=== PATIENT | male | born 1945 | race American Indian/Alaskan Native ===

== ENCOUNTER 2017-06-24 10:22 | Emergency (ER) | payer MEDICARE ==
--- NOTE | 2017-06-24 11:55 | XRay Report ---
RIGHT ANKLE, 3 views: History: right ankle pain. Bone mineralization is normal. There has been previous internal fixation of the distal fibula and medial malleolus. No acute fracture lines are detected. Moderate to severe posttraumatic degenerative changes are identified at the ankle joint. The visualized hind foot is intact. The soft tissues are unremarkable. IMPRESSION: Posttraumatic degenerative changes as described. No acute process is noted.
[2017-06-24] MEDS ORDERED: ASPIRIN PO ONE (14:42)
[2017-06-24 16:00] LABS: Hemoglobin 10.5 gm/dl (11.8-15.2); Mean Corpuscular HGB Conc 34 % (32-34); Mean Corpuscular Hemoglobin 41 pg (28-32); Platelet Count 256 K/mm3 (140-440); Red Blood Count 2.55 M/mm3 (3.65-5.03)
[2017-06-24 16:02] LABS: Lymphocytes % (Auto) 26.9 % (13.4-35.0); Mean Corpuscular Volume 122 fl (84-94); Monocytes % (Auto) 7.9 % (0.0-7.3); Red Cell Distribution Width 22.9 % (13.2-15.2)
--- NOTE | 2017-06-24 16:02 | XRay Report ---
Portable chest: SOB. The cardiac contour does appear enlarged. There is no significant vascular congestion and the lungs are clear of any infiltrate. No recent study for comparison. Impression: Mild cardiomegaly. No definite acute finding.
[2017-06-24 16:03] LABS: Basophils # (Auto) 0.1 K/mm3 (0.0-0.1); Basophils % (Auto) 1.4 % (0.0-1.8); Eosinophils % (Auto) 0.7 % (0.0-4.3); Lymphocytes # (Auto) 1.7 K/mm3 (1.2-5.4); Monocytes # (Auto) 0.5 K/mm3 (0.0-0.8)
[2017-06-24 16:22] LABS: Alanine Aminotransferase 91 units/L (7-56); Albumin 3.5 g/dL (3.9-5); BUN/Creatinine Ratio 22; Blood Urea Nitrogen 28 mg/dL (9-20); Calcium 8.8 mg/dL (8.4-10.2); Hemolysis Index 7; Lipase 47 units/L (13-60)
[2017-06-24] MEDS ORDERED: PEPCID IV ONE (17:32)
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
[2017-06-24] MEDS ORDERED: CATAPRES PO ONE (18:00)
[2017-06-24] MEDS ORDERED: CATAPRES ONE (18:02)
[2017-06-24 18:40] VITALS: BP 168/105
== END 2017-06-24 18:54 | disposition home or self-care (01) ==
LOC: ED 10:22
DX: K27.9 Peptic ulcer, site unspecified, unspecified as acute or chronic, without hemorrhage or perforation (principal); M25.571 Pain in right ankle and joints of right foot; G89.29 Other chronic pain; I10 Essential (primary) hypertension
CPT/HCPCS: 36415; 71045; 80053; 83690; 84484; 85025; 93005; 93010; 96374

== ENCOUNTER 2017-12-28 10:42 | Emergency (ER) | payer MEDICARE ==
[2017-12-28 10:54] VITALS: BP 150/87
[2017-12-28] MEDS ORDERED: NORCO 5/325 PO ONE (12:16)
[2017-12-28] MEDS ORDERED: TORADOL IM ONE (12:17)
--- NOTE | 2017-12-28 12:18 | Emergency Department Report ---
Blank Doc - Documentation Documentation: 72-year-old male presents to the hospital with lower back pain and pain to bilateral hips 1 week progressively worsening. No follow-up reported. 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 Taking gabapentin and taking Tylenol intermittently without relief. Denies numbness, weakness, urinary incontinence, fever, or dysuria. UA pending X-ray lumbar sacral spine [place] and Toradol for pain Mid-level to follow-up
[2017-12-28 12:53] LABS: Bilirubin,Urine NEG (Negative); Blood,Urine NEG (Negative); Color,Urine Yellow (Yellow); Protein,Urine <15 mg/dL mg/dL (Negative)
[2017-12-28 12:57] LABS: WBC,Urine < 1.0 /HPF (0.0-6.0)
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
--- NOTE | 2017-12-28 13:52 | XRay Report ---
Lumbar spine 3 views: History: Back pain. Findings This there is anterior wedging noted of second lumbar vertebral body superior endplate. Degenerative changes of the adjacent endplates. There is narrowing noted off L4-L5 with slight anterolisthesis of L4 over L5. Severe narrowing of lumbosacral interspace with degenerative changes. Calcified abdominal aorta without aneurysm. Impression: Compression fracture of L2 is noted and may be recent or old. Degenerative lumbar spine.
--- NOTE | 2017-12-28 16:04 | Cat Scan Report ---
FINAL REPORT EXAM: CT LUMBAR SPINE WO CON HISTORY: low back pain with abnormal xray TECHNIQUE: Spiral CT scanning of the lumbar spine, with axial images and multiplanar reformations. PRIORS: None. FINDINGS: Diffuse osteopenia. Erosive changes and endplate destruction noted L1-2 level, with wedge-shaped appearance and mild-moderate loss of height in the anterosuperior L2 vertebral body and more scalloped appearance of L1 inferior endplate. Possible intervertebral cartilaginous or Schmorl's node endplate changes in L1 superior and L3 inferior endplates. Multilevel degenerative disc disease and spondylosis, with vacuum disc changes in L4-S1 levels. Very mild anterolisthesis uncovering broad-based disc bulge in L4-5 level, with moderate-marked central spinal canal narrowing. Variable neural foraminal narrowing, most pronounced in the bilateral L4-S1 levels. No acute compression deformity or gross malalignment of lumbar vertebral bodies. No acute fracture identified. No acute, osseous central spinal canal encroachment. Paraspinal soft tissues grossly unremarkable. Diffuse aortoiliac calcification without aneurysmal dilatation. IMPRESSION: 1. Erosive changes and endplate destruction in the L1-2 level may be metabolic or represent infectious or inflammatory process, including spondylodiscitis and osteomyelitis. However, neoplastic or metastatic disease cannot be excluded. Exact etiology uncertain, and clinical correlation along with followup suggested. 2. Diffuse degenerative spondylosis, including central spinal and neural foraminal stenosis in lower lumbar spine.
[2017-12-28 17:33] LABS: Hematocrit 33.8 % (35.5-45.6); Hemoglobin 11.3 gm/dl (11.8-15.2); Mean Corpuscular HGB Conc 33 % (32-34); Mean Corpuscular Hemoglobin 35 pg (28-32); Mean Corpuscular Volume 105 fl (84-94); Platelet Count 358 K/mm3 (140-440); Red Blood Count 3.23 M/mm3 (3.65-5.03)
[2017-12-28 17:36] LABS: BUN/Creatinine Ratio 24; Blood Urea Nitrogen 19 mg/dL (9-20); Calcium 9.7 mg/dL (8.4-10.2); Hemolysis Index 26
[2017-12-28 17:51] LABS: Red Cell Distribution Width 28.2 % (13.2-15.2)
[2017-12-28 18:40] LABS: Erythrocyte Sedimentation Rate 1 mm/Hr (0-20)
[2017-12-28 18:41] LABS: Band Neutrophils # (Manual) 0.5 K/mm3; Basophils % (Manual) 0 % (0.0-1.8); Eosinophils % (Manual) 0 % (0.0-4.3); Total Cells Counted 100
[2017-12-28 18:42] LABS: Anisocytosis 1+; Hypochromasia 1+; Macrocytosis 1+; Ovalocytes 1+; Platelet Estimate Consistent w Auto; Target Cells Few
== END 2017-12-28 19:35 | disposition home or self-care (01) ==
LOC: ED 10:42
DX: S39.012A Strain of muscle, fascia and tendon of lower back, initial encounter (principal); I10 Essential (primary) hypertension; Z87.891 Personal history of nicotine dependence; X58.XXXA Exposure to other specified factors, initial encounter; Y93.89 Activity, other specified; Y92.89 Other specified places as the place of occurrence of the external cause; Y99.8 Other external cause status
CPT/HCPCS: 36415; 72100; 72131; 80048; 81001; 85007; 85025; 85652; 96372; 99284; J1885

== ENCOUNTER 2018-07-28 05:49 | Day surgery (SDC) | payer MEDICARE ==
[~2018-07-28 05:49] MED LIST: LACTATED RINGERS 1,000 ML IV SCH
[2018-07-28] MEDS ORDERED: ANCEF/STERILE WATER 2 GM/20 ML 2 GM/20 ML SYRINGE IV SCH (06:00)
[2018-07-28] MEDS ORDERED: XYLOCAINE MPF 2% ONE (07:20)
[2018-07-28] MEDS ORDERED: VERSED ONE (07:20)
[2018-07-28] MEDS ORDERED: NEO SYNEPHRINE/NS Syringe(OR USE) IV ONE (07:20)
[2018-07-28] MEDS ORDERED: KETALAR ONE (07:21)
--- NOTE | 2018-07-28 07:43 | Anesthesia Consultation ---
Anesthesia Consult and Med Hx Date of service: 07/28/18 - Airway Anesthetic Teeth Evaluation: Edentulous ROM Head & Neck: Adequate Mental/Hyoid Distance: Adequate Mallampati Class: Class II Intubation Access Assessment: Probably Good - Pulmonary Exam CTA: Yes - Cardiac Exam Cardiac Exam: RRR - Pre-Operative Health Status ASA Pre-Surgery Classification: ASA4 Proposed Anesthetic Plan: MAC - Pulmonary Hx Smoking: Yes Hx Asthma: No COPD: Yes (ordered albuteral neb x 1) Home Oxygen Therapy: No - Cardiovascular System Hx Hypertension: Yes (took medications last night; CHF with EF 15-20%) Hx Heart Attack/AMI: No Hx Pacemaker: No Hx Internal Defibrillator: No - Central Nervous System Hx Seizures: No - Gastrointestinal Hx Gastroesophageal Reflux Disease: No - Endocrine Hx Renal Disease: No Hx Liver Disease: No - Hematic Hx Sickle Cell Disease: No - Other Systems Hx Alcohol Use: No Hx Obesity: No - Additional Comments Anesthesia Medical History Comments: No GAC, No FHAC
--- NOTE | 2018-07-28 07:43 | XRay Report ---
ROUTINE CHEST, TWO VIEWS: HISTORY: Preoperative evaluation. Compared to 07/08/18. There is mild to moderate cardiomegaly. Pulmonary vessels are within normal limits. Trace right pleural effusion is suspected. No evidence for pneumonia or pneumothorax. The bony structures are mildly demineralized but intact. IMPRESSION: Cardiomegaly and trace right pleural effusion.
[2018-07-28] MEDS ORDERED: PROVENTIL IH NR (08:15)
[2018-07-28] MEDS ORDERED: HYDROGEN PEROXIDE ONE (08:31)
[2018-07-28] MEDS ORDERED: MARCAINE 0.5% INFILTRATI ONE ×2 (08:31→09:30)
[2018-07-28] MEDS ORDERED: XYLOCAINE 1%/ EPI 1:100,000 INFILTRATI ONE ×2 (08:31→09:30)
[2018-07-28] MEDS ORDERED: MARCAINE-EPI 0.5%-1:200,000 INFILTRATI ONE (08:31)
[2018-07-28] MEDS ORDERED: SUBLIMAZE IV PRN (08:48)
[2018-07-28] MEDS ORDERED: ceFAZolin 2 GM in NACL 0.9% 100 ML IV ONE (09:30)
[2018-07-28] MEDS ORDERED: WATER FOR IRRIG STERILE IR ONE (09:30)
[2018-07-28] MEDS ORDERED: LOPRESSOR IV ONE (10:03)
[2018-07-28] MEDS ORDERED: BREVIBLOC IV ONE (10:04)
--- NOTE | 2018-07-28 10:14 | Discharge Summary ---
Short Stay Discharge Plan Activity: other (october d/c when stable. keep dressings dry and in place. home health d/c packing Fri am. irrigate wd with 50% h202/NS ronni qd. pack with mesalt) Diet: regular Wound: per wound nurse instructions Additional Instructions: aleve I po q 6-8 hrs prn for breakthrough pain Follow up with: AMERICO LATHAM MD [Staff Physician] - 08/02/18
[2018-07-28] MEDS ORDERED: Vasostrict ONE (10:16)
--- NOTE | 2018-07-28 10:34 | Operative Report ---
PREOPERATIVE DIAGNOSIS: Right chest wall abscess. POSTOPERATIVE DIAGNOSIS: Right chest wall abscess. Pending final pathology. PROCEDURE: Excision and drainage of chest wall abscess. SURGEON: Aman Arizmendi MD ANESTHESIA: 0.5% Marcaine with IV sedation. COMPLICATIONS: No complications. PROCEDURE IN DETAIL: The patient was taken to the operating room, prepped and draped in usual sterile fashion. The erythematous draining nodule was clearly seen on the right chest wall area. An 11 blade was used to incise skin and subcutaneous tissue. A fair amount of purulence as well as what appears to be sebum was noted. Aerobic and anaerobic cultures were taken. Portions of the tissue were sent fresh to pathology also for cultures as well as permanent pathology. The cavity was then copiously irrigated and dried. Checked for hemostasis and noted to be dry. The cavity was then packed with quarter inch iodoform gauze. Fluff and pressure dressings applied. The patient tolerated the procedure well and left the OR in stable condition. JOB# [id number] JAHAIRA/GONZALEZ
[2018-07-28 11:19] VITALS: BP 136/98
--- NOTE | 2018-07-28 15:08 | Post Anesthesia Evaluation ---
- Post Anesthesia Evaluation Patient Participated: Yes Airway Patent: Yes Stable Respiratory Function: Yes Nausea/Vomiting: No Temp > 96.8F: Yes Pain Manageable: Yes Adequeate Hydration: Yes Anesthesia Complications: No
--- NOTE | 2018-07-28 15:08 | Anesthesia Day of Surgery ---
Anesthesia Day of Surgery - Day of Surgery Patient Examined: Yes Patient H&P Reviewed: Yes Patient is NPO: Yes
== END 2018-07-28 12:05 | disposition home or self-care (01) ==
LOC: OR 05:49
PROVIDERS: ATTEND Surgery
DX: G72.49 Other inflammatory and immune myopathies, not elsewhere classified (principal); L02.213 Cutaneous abscess of chest wall; I11.0 Hypertensive heart disease with heart failure; I50.20 Unspecified systolic (congestive) heart failure; I25.10 Atherosclerotic heart disease of native coronary artery without angina pectoris; E78.5 Hyperlipidemia, unspecified; D64.9 Anemia, unspecified; J44.9 Chronic obstructive pulmonary disease, unspecified; K21.9 Gastro-esophageal reflux disease without esophagitis; Z87.891 Personal history of nicotine dependence; Z79.899 Other long term (current) drug therapy
CPT/HCPCS: 10060; 36415; 71046; 84132; 87075; 87076; 87116; 87186; 88305; 88341; 88342; J0690; J2250; J2370; J7120; 88304

== ENCOUNTER 2018-10-02 11:32 | Inpatient (IN) | payer MEDICARE ==
[2018-10-02] MEDS ORDERED: CARDIZEM IV ONE (12:25)
[2018-10-02] MEDS ORDERED: CARDIZEM ONE (12:28)
[2018-10-02 12:38] LABS: Hematocrit 42.2 % (35.5-45.6); Hemoglobin 13.8 gm/dl (11.8-15.2); Mean Corpuscular HGB Conc 33 % (32-34); Platelet Count 196 K/mm3 (140-440); Red Blood Count 3.31 M/mm3 (3.65-5.03)
[2018-10-02] MEDS ORDERED: NACL 0.9% 1000 ML 1,000 ML ONE ×2 (12:38→18:54)
[2018-10-02] MEDS ORDERED: NACL 0.9% 1000 ML 1,000 ML IV ONE ×2 (12:42→13:10)
[2018-10-02 12:44] LABS: INR 1.78 (0.87-1.13); Mean Corpuscular Volume 128 fl (84-94); Red Cell Distribution Width 29.8 % (13.2-15.2)
--- NOTE | 2018-10-02 12:48 | Cat Scan Report ---
PROCEDURE: CT HEAD/BRAIN WO CON TECHNIQUE: CT of the head was performed without intravenous contrast. HISTORY: AMS A flutter COMPARISONS: None FINDINGS: The ventricles are normal in position and shape. The ventricles are nondilated. No intracranial hemorrhage, mass, mass effect or evidence of acute ischemic infarct. The basilar cisterns are patent. The paranasal sinuses are clear. The mastoid air cells are clear. The orbits are intact. The calvarium is intact. No extracranial soft tissue swelling. IMPRESSION: No acute intracranial abnormality. This document is electronically signed by Margaret Cardona., October 02 2018 12:46:56 PM ET
[2018-10-02 12:57] LABS: Albumin 4.2 g/dL (3.9-5); Bilirubin,Direct 1.6 mg/dL (0-0.2)
[2018-10-02 13:05] LABS: Free T4 (Free Thyroxine) 1.35 ng/dL (0.76-1.46)
--- NOTE | 2018-10-02 13:07 | Emergency Department Report ---
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 Urine Bilirubin Urine Urobilinogen Ur Leukocyte Esterase Urine WBC (Auto) Urine RBC (Auto) U Epithel Cells (Auto) Urine Bacteria (Auto) Hyaline Casts Urine Mucus Urine Opiates Screen Urine Methadone Screen Ur Barbiturates Screen Ur Phencyclidine Scrn Ur Amphetamines Screen U Benzodiazepines Scrn Urine Cocaine Screen U Marijuana (THC) Screen Drugs of Abuse Note 10/02/18 10/02/18 10/02/18 12:06 12:30 13:13 WBC RBC Hgb Hct MCV MCH MCHC RDW Plt Count Add Manual Diff Total Counted Seg Neuts % (Manual) Band Neutrophils % Lymphocytes % (Manual) Reactive Lymphs % (Man) Monocytes % (Manual) Eosinophils % (Manual) Basophils % (Manual) Metamyelocytes % Myelocytes % Promyelocytes % Blast Cells % Nucleated RBC % Seg Neutrophils # Man Band Neutrophils # Lymphocytes # (Manual) Abs React Lymphs (Man) Monocytes # (Manual) Eosinophils # (Manual) Basophils # (Manual) Metamyelocytes # Myelocytes # Promyelocytes # Blast Cells # WBC Morphology Hypersegmented Neuts Hyposegmented Neuts Hypogranular Neuts Smudge Cells Toxic Granulation Toxic Vacuolation Dohle Bodies Pelger-Huet Anomaly Amina Rods Platelet Estimate Clumped Platelets Plt Clumps, EDTA Large Platelets Giant Platelets Platelet Satelliting Plt Morphology Comment RBC Morphology Dimorphic RBCs Polychromasia Hypochromasia Poikilocytosis Anisocytosis Microcytosis Macrocytosis Spherocytes Pappenheimer Bodies Sickle Cells Target Cells Tear Drop Cells Ovalocytes Helmet Cells Villed[place]our Bodies Kerrick Rings Jose Cells Bite Cells Crenated Cell Elliptocytes Acanthocytes (Spur) Rouleaux Hemoglobin C Crystals Schistocytes Malaria parasites Gordo Bodies Hem Pathologist Commnt PT INR APTT Sodium 140 Potassium 5.1 H Chloride 104.4 Carbon Dioxide 18 L Anion Gap 23 BUN 42 H Creatinine 1.5 Estimated GFR 55 BUN/Creatinine Ratio 28 Glucose 106 H POC Glucose 71 Calcium 8.9 Magnesium Total Bilirubin Direct Bilirubin Indirect Bilirubin AST ALT Alkaline Phosphatase Ammonia Total Creatine Kinase CK-MB (CK-2) CK-MB (CK-2) Rel Index Troponin T 0.031 H NT-Pro-B Natriuret Pep Total Protein Albumin Albumin/Globulin Ratio Triglycerides 52 Cholesterol 111 LDL Cholesterol Direct 77 HDL Cholesterol 40 Cholesterol/HDL Ratio 2.77 TSH 6.960 H Free T4 1.35 Urine Color Urine Turbidity Urine pH Ur Specific [place] Urine Protein Urine Glucose (UA) Urine Ketones Urine Blood Urine Nitrite Urine Bilirubin Urine Urobilinogen Ur Leukocyte Esterase Urine WBC (Auto) Urine RBC (Auto) U Epithel Cells (Auto) Urine Bacteria (Auto) Hyaline Casts Urine Mucus Urine Opiates Screen Urine Methadone Screen Ur Barbiturates Screen Ur Phencyclidine Scrn Ur Amphetamines Screen U Benzodiazepines Scrn Urine Cocaine Screen U Marijuana (THC) Screen Drugs of Abuse Note 10/02/18 10/02/18 10/02/18 13:13 13:13 13:13 WBC RBC Hgb Hct MCV MCH MCHC RDW Plt Count Add Manual Diff Total Counted Seg Neuts % (Manual) Band Neutrophils % Lymphocytes % (Manual) Reactive Lymphs % (Man) Monocytes % (Manual) Eosinophils % (Manual) Basophils % (Manual) Metamyelocytes % Myelocytes % Promyelocytes % Blast Cells % Nucleated RBC % Seg Neutrophils # Man Band Neutrophils # Lymphocytes # (Manual) Abs React Lymphs (Man) Monocytes # (Manual) Eosinophils # (Manual) Basophils # (Manual) Metamyelocytes # Myelocytes # Promyelocytes # Blast Cells # WBC Morphology Hypersegmented Neuts Hyposegmented Neuts Hypogranular Neuts Smudge Cells Toxic Granulation Toxic Vacuolation Dohle Bodies Pelger-Huet Anomaly Amina Rods Platelet Estimate Clumped Platelets Plt Clumps, EDTA Large Platelets Giant Platelets Platelet Satelliting Plt Morphology Comment RBC Morphology Dimorphic RBCs Polychromasia Hypochromasia Poikilocytosis Anisocytosis Microcytosis Macrocytosis Spherocytes Pappenheimer Bodies Sickle Cells Target Cells Tear Drop Cells Ovalocytes Helmet Cells [place]illed[place] Bodies Kerrick Rings Anson Cells Bite Cells Crenated Cell Elliptocytes Acanthocytes (Spur) Rouleaux Hemoglobin C Crystals Schistocytes Malaria parasites [place]ordo Bodies Hem Pathologist Commnt PT INR APTT Sodium Potassium Chloride Carbon Dioxide Anion Gap BUN Creatinine Estimated GFR BUN/Creatinine Ratio Glucose POC Glucose Calcium Magnesium 2.20 Total Bilirubin 4.20 H Direct Bilirubin 2.3 H Indirect Bilirubin 1.9 AST 169 H ALT 224 H Alkaline Phosphatase 58 Ammonia 41.0 Total Creatine Kinase 69 CK-MB (CK-2) 4.5 H CK-MB (CK-2) Rel Index 6.5 H Troponin T NT-Pro-B Natriuret Pep 57761 H Total Protein 6.9 D Albumin 3.3 L Albumin/Globulin Ratio 0.9 Triglycerides Cholesterol LDL Cholesterol Direct HDL Cholesterol Cholesterol/HDL Ratio TSH Free T4 Urine Color Urine Turbidity Urine pH Ur Specific [place] Urine Protein Urine Glucose (UA) Urine Ketones Urine Blood Urine Nitrite Urine Bilirubin Urine Urobilinogen Ur Leukocyte Esterase Urine WBC (Auto) Urine RBC (Auto) U Epithel Cells (Auto) Urine Bacteria (Auto) Hyaline Casts Urine Mucus Urine Opiates Screen Urine Methadone Screen Ur Barbiturates Screen Ur Phencyclidine Scrn Ur Amphetamines Screen U Benzodiazepines Scrn Urine Cocaine Screen U Marijuana (THC) Screen Drugs of Abuse Note 10/02/18 10/02/18 10/02/18 13:13 Unknown Unknown WBC RBC Hgb Hct MCV MCH MCHC RDW Plt Count Add Manual Diff Total Counted Seg Neuts % (Manual) Band Neutrophils % Lymphocytes % (Manual) Reactive Lymphs % (Man) Monocytes % (Manual) Eosinophils % (Manual) Basophils % (Manual) Metamyelocytes % Myelocytes % Promyelocytes % Blast Cells % Nucleated RBC % Seg Neutrophils # Man Band Neutrophils # Lymphocytes # (Manual) Abs React Lymphs (Man) Monocytes # (Manual) Eosinophils # (Manual) Basophils # (Manual) Metamyelocytes # Myelocytes # Promyelocytes # Blast Cells # WBC Morphology Hypersegmented Neuts Hyposegmented Neuts Hypogranular Neuts Smudge Cells Toxic Granulation Toxic Vacuolation Dohle Bodies Pelger-Huet Anomaly Amina Rods Platelet Estimate Clumped Platelets Plt Clumps, EDTA Large Platelets Giant Platelets Platelet Satelliting Plt Morphology Comment RBC Morphology Dimorphic RBCs Polychromasia Hypochromasia Poikilocytosis Anisocytosis Microcytosis Macrocytosis Spherocytes Pappenheimer Bodies Sickle Cells Target Cells Tear Drop Cells Ovalocytes Helmet Cells Villed[place] Bodies Kerrick Rings Jose Cells Bite Cells Crenated Cell Elliptocytes Acanthocytes (Spur) Rouleaux Hemoglobin C Crystals Schistocytes Malaria parasites [place] Bodies Hem Pathologist Commnt PT INR APTT Sodium Potassium Chloride Carbon Dioxide Anion Gap BUN Creatinine Estimated GFR BUN/Creatinine Ratio Glucose POC Glucose Calcium Magnesium Total Bilirubin Direct Bilirubin Indirect Bilirubin AST ALT Alkaline Phosphatase Ammonia Total Creatine Kinase CK-MB (CK-2) CK-MB (CK-2) Rel Index Troponin T NT-Pro-B Natriuret Pep Total Protein Albumin Albumin/Globulin Ratio Triglycerides Cholesterol LDL Cholesterol Direct HDL Cholesterol Cholesterol/HDL Ratio TSH 5.690 H Free T4 1.30 Urine Color Nel Urine Turbidity Clear Urine pH 5.0 Ur Specific [place] 1.035 H Urine Protein 30 mg/dl Urine Glucose (UA) Neg Urine Ketones Neg Urine Blood Neg Urine Nitrite Neg Urine Bilirubin Neg Urine Urobilinogen 4.0 Ur Leukocyte Esterase Neg Urine WBC (Auto) 2.0 Urine RBC (Auto) 1.0 U Epithel Cells (Auto) 1.0 Urine Bacteria (Auto) 1+ Hyaline Casts 6 Urine Mucus 1+ Urine Opiates Screen Presumptive negative Urine Methadone Screen Presumptive negative Ur Barbiturates Screen Presumptive negative Ur Phencyclidine Scrn Presumptive negative Ur Amphetamines Screen Presumptive negative U Benzodiazepines Scrn Presumptive negative Urine Cocaine Screen Presumptive negative U Marijuana (THC) Screen Presumptive negative Drugs of Abuse Note Disclamer - EKG Data -: EKG Interpreted by Me Rate: tachycardia (21 block) - EKG Data Interpretation: no acute changes (no acute ischemic changes apparent), other (intraventricular conduction delay more consistent with left bundle) - Radiology Data Radiology results: report reviewed (Right pleural effusion, cardiomegaly, no other acute findings. CT head no acute findings) Critical Care Time: Yes Critical care time in (mins) excluding proc time.: 60 Critical care attestation.: If time is entered above; I have spent that time in minutes in the direct care of this critically ill patient, excluding procedure time. ED Disposition Clinical Impression: Cardiac enzymes elevated, Renal insufficiency, Cellulitis of right lower extremity, Coagulopathy, Pleural effusion, right Atrial flutter Qualifiers: Atrial flutter type: atypical Qualified Code(s): I48.4 - Atypical atrial flutter Liver failure Qualifiers: Liver failure chronicity: unspecified chronicity Hepatic coma status: without hepatic coma Qualified Code(s): K72.90 - Hepatic failure, unspecified without coma Hypothermia Qualifiers: Encounter type: initial encounter Qualified Code(s): T68.XXXA - Hypothermia, initial encounter Altered mental status Qualifiers: Altered mental status type: somnolence Qualified Code(s): R40.0 - Somnolence Leukopenia Qualifiers: Leukopenia type: unspecified Qualified Code(s): D72.819 - Decreased white blood cell count, unspecified Cardiomyopathy Qualifiers: Cardiomyopathy type: unspecified Qualified Code(s): I42.9 - Cardiomyopathy, unspecified Disposition: [id number] OP ADMIT IP TO THIS HOSP Is pt being admited?: Yes Does the pt Need Aspirin: Yes Condition: Stable Referrals: PRIMARY CARE, [Primary Care Provider] - 3-5 Days Time of Disposition: 15:31
[2018-10-02 13:29] LABS: Anisocytosis 3+; Band Neutrophils # (Manual) 0.1 K/mm3; Basophils % (Manual) 0 % (0.0-1.8); Eosinophils % (Manual) 0 % (0.0-4.3); Macrocytosis 2+; Poikilocytosis 1+; Target Cells Few; Total Cells Counted 100
[2018-10-02 13:30] LABS: Large Platelets Few; Ovalocytes Few; Platelet Estimate Consistent w Auto; Schistocytes Rare
[2018-10-02 13:46] LABS: Creatine Kinase MB 4.5 ng/mL (0.0-4.0)
[2018-10-02 13:49] LABS: Albumin 3.3 g/dL (3.9-5); Bilirubin,Direct 2.3 mg/dL (0-0.2)
[2018-10-02 13:51] LABS: Bacteria,Urine 1+ /HPF (Negative); Bilirubin,Urine NEG (Negative); Blood,Urine NEG (Negative); Color,Urine Amber (Yellow); Hyaline Casts,Urine 6 /LPF; Mucus,Urine 1+ /HPF
[2018-10-02 13:56] LABS: Free T4 (Free Thyroxine) 1.3 ng/dL (0.76-1.46)
[2018-10-02 13:58] LABS: Amphetamine Screen,Urine PRESUMPTIVE NEGATIVE; Benzodiazepines Screen,Urine PRESUMPTIVE NEGATIVE; Cannabinoid Screen,Urine PRESUMPTIVE NEGATIVE; Cocaine Screen,Urine PRESUMPTIVE NEGATIVE; Methadone Screen,Urine PRESUMPTIVE NEGATIVE; Opiate Screen,Urine PRESUMPTIVE NEGATIVE
[2018-10-02 14:40] LABS: Calcium 8.9 mg/dL (8.4-10.2)
--- NOTE | 2018-10-02 14:45 | XRay Report ---
PROCEDURE: XR CHEST 1V AP TECHNIQUE: Chest radiograph single view. HISTORY: Chest pain COMPARISONS: Chest x-ray 07/08/2018 . FINDINGS: Heart: Remains enlarged. Mediastinum/Vessels: Normal. Lungs/Pleural space: There is minimal blunting right lateral costophrenic angle suggesting a small r ight effusion. I cannot exclude a small left effusion as well as a small amount of patchy atelectasis in the left base. No dense consolidations are seen.. Bony thorax: No acute osseous abnormality. Life support devices: None. IMPRESSION: Stable Cardiomegaly. New pleural effusion visualized on the right and possible small pleural effusion on the left. I suspe ct there is also small amount of atelectasis in the left base.. This document is electronically signed by Miguel Serrano MD., October 02 2018 02:43:27 PM ET
[2018-10-02 14:59] LABS: Chol/HDL Ratio 2.77 %
[2018-10-02] MEDS ORDERED: BABY ASPIRIN PO ONE (15:34)
--- NOTE | 2018-10-02 15:46 | History and Physical Report ---
History of Present Illness Chief complaint: He is just not doing well History of present illness: 73 YO Male with HTN, HLD, CVA, Systolic CHF(EF 15%), COPD, GERD, End Stage Liver Disease, Dementia, Debility presents to ED for evaluation. Pt is nonverbal and unable to provide history. Pt history taken from daughter. As per daughter, the patient has experienced decreased verbalization, decreased interaction with family, increased confusion, decreased oral intake, insomnia, worsening daytime somnolence, increased garbled speech with worsening symptoms over the past 1 week. Pt family became concerned today after several days of the aforementioned symptoms. EMS was notified, and upon arrival the patient was found to have Atrial Fib/Flutter and transported to [facility] ED. Pt seen and evaluated in ED and found to have Encephalopathy, CHF Decompensation, and Atrial fib/Flutter. Pt family also reports visual hallucinations 2 weeks ago with resulted in the patient calling the police. Pt was sleeping with a loaded gun at his bedside. Pt daughter reports worsening visual hallucinations. Pt gun was taken prior to transport to [facility]. Pt admitted to IMCU and initiated on Cardizem, as well as therapeutic anticoagulation. [id number] Score:5. Prior admission on 07/08/18 reviewed. All listed medication reconciled at time of admission. Past History Past Medical History: COPD, heart failure, hypertension, stroke Past Surgical History: Other (Right BKA, Heart Cath) Social history: , lives with family. denies: smoking, alcohol abuse, prescription drug abuse Family history: diabetes, hypertension Medications and Allergies Allergies Allergy/AdvReac Type Severity Reaction Status Date / Time No Known Allergies Allergy Verified 06/24/17 14:41 Home Medications Medication Instructions Recorded Confirmed Last Taken Type AtorvaSTATin [Lipitor] 20 mg PO QHS #30 tablet 07/10/18 10/02/18 07/27/18 Rx Carvedilol [Coreg] 12.5 mg PO BID #60 tablet 07/10/18 10/02/18 07/27/18 Rx Clopidogrel [Plavix] 75 mg PO DAILY #30 tablet 07/10/18 10/02/18 07/25/18 Rx Famotidine [Pepcid] 20 mg PO BID #60 tablet 07/10/18 10/02/18 07/27/18 Rx Furosemide [Lasix TAB] 40 mg PO QDAY #30 tablet 07/10/18 10/02/18 07/27/18 Rx Losartan [Cozaar] 25 mg PO DAILY #30 tablet 07/10/18 10/02/18 07/27/18 Rx Potassium Chloride [K-Dur] 10 meq PO QDAY #30 tablet 07/10/18 10/02/18 07/27/18 Rx Spironolactone [Aldactone] 25 mg PO DAILY #30 tablet 07/10/18 10/02/18 07/27/18 Rx HYDROcodone/APAP 5-325 [[place] 1 each PO Q4HR PRN #20 tablet 07/28/18 10/02/18 Unknown Rx 5/325] Active Meds: Active Medications Sodium Chloride (Nacl 0.9% 1000 Ml) 1,000 mls @ 125 mls/hr IV ONCE ONE Stop: 10/02/18 20:41 Last Admin: 10/02/18 12:55 Dose: 125 mls/hr Documented by: Sodium Chloride (Nacl 0.9% 1000 Ml) 1,000 mls @ 125 mls/hr IV ONCE ONE Stop: 10/02/18 21:09 Meropenem 1,000 mg/ Sodium (Chloride) 100 mls @ 100 mls/hr IV ONCE ONE Stop: 10/02/18 16:59 Vancomycin HCl (Vancomycin/Ns 1 Gm/250 Ml) 1 gm in 250 mls @ 166.667 mls/hr IV ONCE ONE Stop: 10/02/18 17:29 Review of Systems ROS unobtainable: due to mental status Exam - Constitutional Vitals: Temp Pulse Resp BP Pulse Ox 94.3 F L 78 15 120/91 97 10/02/18 13:07 10/02/18 13:07 10/02/18 13:07 10/02/18 13:07 10/02/18 13:07 General appearance: Present: mild distress - EENT Eyes: Present: miosis ENT: hearing intact, clear oral mucosa - Neck Neck: Present: supple, normal ROM - Respiratory Respiratory effort: normal Respiratory: bilateral: CTA - Cardiovascular Rhythm: other (tachycardia) - Extremities Extremities: pulses symmetrical Extremity abnormal: edema Peripheral Pulses: within normal limits - Abdominal General gastrointestinal: Present: soft, non-tender, non-distended, normal bowel sounds Male genitourinary: Present: normal - Integumentary Integumentary: Present: clear, warm, dry - Musculoskeletal Musculoskeletal: generalized weakness - Psychiatric Psychiatric: no appropriate mood/affect, no intact judgment & insight, no memory intact - Neurologic Neurologic: no focal deficits, moves all extremities, no gait normal Results - Labs CBC & Chem 7: 10/02/18 12:06 10/02/18 13:13 Labs: Abnormal lab results 10/02/18 10/02/18 10/02/18 Range/Units 12:06 12:06 12:06 WBC 3.3 L (4.5-11.0) K/mm3 RBC 3.31 L (3.65-5.03) M/mm3 MCV 128 H (84-94) fl MCH 42 H (28-32) pg RDW 29.8 H (13.2-15.2) % Seg Neuts % (Manual) 77.0 H (40.0-70.0) % Nucleated RBC % 3.0 H (0.0-0.9) % Lymphocytes # (Manual) 0.5 L (1.2-5.4) K/mm3 PT 21.9 H (12.2-14.9) Sec. INR 1.78 H (0.87-1.13) Potassium (3.6-5.0) mmol/L Carbon Dioxide (22-30) mmol/L BUN (9-20) mg/dL Glucose (75-100) mg/dL Magnesium 3.00 H (1.7-2.3) mg/dL Total Bilirubin 5.40 H (0.1-1.2) mg/dL Direct Bilirubin 1.6 H (0-0.2) mg/dL AST 541 H (5-40) units/L ALT 320 H (7-56) units/L Alkaline Phosphatase 21 L (35-129) units/L CK-MB (CK-2) (0.0-4.0) ng/mL CK-MB (CK-2) Rel Index (0-4) Troponin T (0.00-0.029) ng/mL NT-Pro-B Natriuret Pep 27303 H (0-900) pg/mL Total Protein 10.4 H (6.3-8.2) g/dL Albumin (3.9-5) g/dL TSH (0.270-4.200) mlU/mL Ur Specific [place] (1.003-1.030) 10/02/18 10/02/18 10/02/18 Range/Units 12:06 13:13 13:13 WBC (4.5-11.0) K/mm3 RBC (3.65-5.03) M/mm3 MCV (84-94) fl MCH (28-32) pg RDW (13.2-15.2) % Seg Neuts % (Manual) (40.0-70.0) % Nucleated RBC % (0.0-0.9) % Lymphocytes # (Manual) (1.2-5.4) K/mm3 PT (12.2-14.9) Sec. INR (0.87-1.13) Potassium 5.1 H (3.6-5.0) mmol/L Carbon Dioxide 18 L (22-30) mmol/L BUN 42 H (9-20) mg/dL Glucose 106 H (75-100) mg/dL Magnesium (1.7-2.3) mg/dL Total Bilirubin (0.1-1.2) mg/dL Direct Bilirubin (0-0.2) mg/dL AST (5-40) units/L ALT (7-56) units/L Alkaline Phosphatase (35-129) units/L CK-MB (CK-2) 4.5 H (0.0-4.0) ng/mL CK-MB (CK-2) Rel Index 6.5 H (0-4) Troponin T 0.031 H (0.00-0.029) ng/mL NT-Pro-B Natriuret Pep (0-900) pg/mL Total Protein (6.3-8.2) g/dL Albumin (3.9-5) g/dL TSH 6.960 H (0.270-4.200) mlU/mL Ur Specific [place] (1.003-1.030) 10/02/18 10/02/18 10/02/18 Range/Units 13:13 13:13 Unknown WBC (4.5-11.0) K/mm3 RBC (3.65-5.03) M/mm3 MCV (84-94) fl MCH (28-32) pg RDW (13.2-15.2) % Seg Neuts % (Manual) (40.0-70.0) % Nucleated RBC % (0.0-0.9) % Lymphocytes # (Manual) (1.2-5.4) K/mm3 PT (12.2-14.9) Sec. INR (0.87-1.13) Potassium (3.6-5.0) mmol/L Carbon Dioxide (22-30) mmol/L BUN (9-20) mg/dL Glucose (75-100) mg/dL Magnesium (1.7-2.3) mg/dL Total Bilirubin 4.20 H (0.1-1.2) mg/dL Direct Bilirubin 2.3 H (0-0.2) mg/dL AST 169 H (5-40) units/L ALT 224 H (7-56) units/L Alkaline Phosphatase (35-129) units/L CK-MB (CK-2) (0.0-4.0) ng/mL CK-MB (CK-2) Rel Index (0-4) Troponin T (0.00-0.029) ng/mL NT-Pro-B Natriuret Pep 88814 H (0-900) pg/mL Total Protein (6.3-8.2) g/dL Albumin 3.3 L (3.9-5) g/dL TSH 5.690 H (0.270-4.200) mlU/mL Ur Specific [place] 1.035 H (1.003-1.030) Assessment and Plan - Patient Problems (1) Acute exacerbation of CHF (congestive heart failure) Current Visit: No Status: Acute Qualifiers: Heart failure type: combined systolic and diastolic Qualified Code(s): I50.43 - 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 (2) Encephalopathy Current Visit: Yes Status: Acute Plan to address problem: CT head, thyroid panel, neuro check, aspiration precautions, (3) Acidosis Current Visit: Yes Status: Acute Plan to address problem: IV bicarbonate therapy, repeat bmp, (4) Atrial fibrillation/flutter Current Visit: Yes Status: Acute Plan to address problem: Cardizem, telemetry monitoring, therapeutic anticoagulation with lovenox, Will hold plavix at this time, cardiology consulted in ED. (5) Hypertension Current Visit: No Status: Chronic Qualifiers: Hypertension type: essential hypertension Qualified Code(s): I10 - Essential (primary) hypertension Plan to address problem: monitor BP q shift, continue medical management. (6) Pleural effusion Current Visit: Yes Status: Acute Plan to address problem: Reported on CXR. I cannot visualize effusion on CXR that is amenable to thoracentesis. Will conduct CT Chest to further characterize. treat CHF, continue diuresis, supportive care. (7) Liver failure Current Visit: Yes Status: Acute Qualifiers: Liver failure chronicity: unspecified chronicity Hepatic coma status: without hepatic coma Qualified Code(s): K72.90 - Hepatic failure, unspecified without coma Plan to address problem: CMP, supportive care, continue to monitor. (8) DVT prophylaxis Current Visit: No Status: Acute Plan to address problem: SCD to BLE while in bed, continue therapeutic anticoagulation.
[2018-10-02] MEDS ORDERED: MERREM 1,000 MG in NACL 0.9% 100 ML IV ONE (16:00)
[2018-10-02] MEDS ORDERED: VANCOMYCIN PHARMACY TO DOSE IV SCH (16:00)
[2018-10-02] MEDS ORDERED: VANCOMYCIN/NS 1 GM/250 ML 1 GM/250 ML BAG IV ONE (16:00)
[2018-10-02] MEDS ORDERED: NORCO 5/325 PO PRN (18:24)
[2018-10-02] MEDS ORDERED: SODIUM CHLORIDE FLUSH SYRINGE 10 ML IV PRN (18:25)
[2018-10-02] MEDS ORDERED: PROVENTIL IH PRN (18:25)
[2018-10-02] MEDS ORDERED: CARDIZEM 100 MG in D5W 80 ML IV SCH (19:00)
[2018-10-02 20:22] LABS: Bilirubin,Urine NEG (Negative); Blood,Urine NEG (Negative); Color,Urine Amber (Yellow); Hyaline Casts,Urine 4 /LPF; Mucus,Urine FEW /HPF; Protein,Urine <15 mg/dL mg/dL (Negative)
[2018-10-02] MEDS: PEPCID PO SCH (21:25)
[2018-10-02] MEDS: LOVENOX SUB-Q SCH (21:25)
[2018-10-02] MEDS: COREG PO SCH (21:26)
[2018-10-02] MEDS: SODIUM CHLORIDE FLUSH SYRINGE 10 ML IV SCH (21:27)
[2018-10-02] MEDS ORDERED: PEPCID PO SCH (22:00)
[2018-10-02] MEDS: CARDIZEM PO SCH (23:20)
[2018-10-03 05:46] LABS: Calcium 8.7 mg/dL (8.4-10.2)
[2018-10-03 05:55] LABS: Hematocrit 33.6 % (35.5-45.6); Hemoglobin 11.2 gm/dl (11.8-15.2); Mean Corpuscular HGB Conc 33 % (32-34); Platelet Count 163 K/mm3 (140-440); Red Blood Count 2.63 M/mm3 (3.65-5.03)
[2018-10-03 05:57] LABS: Mean Corpuscular Volume 128 fl (84-94); Red Cell Distribution Width 27.3 % (13.2-15.2)
[2018-10-03 06:59] LABS: Band Neutrophils # (Manual) 0.1 K/mm3; Basophils % (Manual) 0 % (0.0-1.8); Eosinophils % (Manual) 0 % (0.0-4.3); Total Cells Counted 100
[2018-10-03 07:00] LABS: Anisocytosis 3+; Large Platelets Few; Macrocytosis 2+; Poikilocytosis 1+
[2018-10-03] MEDS: CARDIZEM PO SCH ×3 (07:00→17:01)
[2018-10-03] MEDS: LASIX IV SCH ×2 (07:01→17:01)
--- NOTE | 2018-10-03 09:09 | Progress Note ---
Assessment and Plan Assessment and plan: 73 YO Male with HTN, HLD, CVA, Systolic CHF(EF 15%), COPD, GERD, End Stage Liver Disease, Dementia, Debility presents to ED for evaluation. Pt is nonverbal and unable to provide history. Pt history taken from daughter. As per daughter, the patient has experienced decreased verbalization, decreased interaction with family, increased confusion, decreased oral intake, insomnia, worsening daytime somnolence, increased garbled speech with worsening symptoms over the past 1 week. Pt family became concerned today after several days of the aforementioned symptoms. EMS was notified, and upon arrival the patient was found to have Atrial Fib/Flutter and transported to [facility] ED. Pt seen and evaluated in ED and found to have Encephalopathy, CHF Decompensation, and Atrial fib/Flutter. Pt family also reports visual hallucinations 2 weeks ago with resulted in the patient calling the police. Pt was sleeping with a loaded gun at his bedside. Pt daughter reports worsening visual hallucinations. Pt gun was taken prior to transport to [facility]. Pt admitted to IMCU and initiated on Cardizem, as well as therapeutic anticoagulation. [id number] Score:5. Prior admission on 07/08/18 reviewed. All listed medication reconciled at time of admission. - Patient Problems (1) Acute exacerbation of CHF (congestive heart failure) Current Visit: No Status: Acute Qualifiers: Heart failure type: combined systolic and diastolic Qualified Code(s): I50.43 - Acute on chronic combined systolic (congestive) and diastolic (congestive) heart failure Plan to address problem: Continue current management Per CHF protocol Strict I/O, daily weight, BNP, chest x ray, monitor uop q shift, thyroid panel, diuresis, Prior Echo on 07/08/18 reviewed (2) Encephalopathy Current Visit: Yes Status: Acute Plan to address problem: CT head, thyroid panel, neuro check, aspiration precautions, (3) Acidosis Current Visit: Yes Status: Acute Plan to address problem: IV bicarbonate therapy, repeat bmp, (4) Atrial fibrillation/flutter Current Visit: Yes Status: Acute Plan to address problem: Cardizem, telemetry monitoring, therapeutic anticoagulation with lovenox, Will hold plavix at this time, cardiology consulted in ED. (5) Hypertension Current Visit: No Status: Chronic Qualifiers: Hypertension type: essential hypertension Qualified Code(s): I10 - Essential (primary) hypertension Plan to address problem: monitor BP q shift, continue medical management. (6) Pleural effusion Current Visit: Yes Status: Acute Plan to address problem: Reported on CXR. I cannot visualize effusion on CXR that is amenable to thoracentesis. Will conduct CT Chest to further characterize. treat CHF, continue diuresis, supportive care. (7) Liver failure Current Visit: Yes Status: Acute Qualifiers: Liver failure chronicity: unspecified chronicity Hepatic coma status: without hepatic coma Qualified Code(s): K72.90 - Hepatic failure, unspecified without coma Plan to address problem: CMP, supportive care, continue to monitor. ?PASSIVE CONGESTIVE HEART FAILURE (8) DVT prophylaxis Current Visit: No Status: Acute Plan to address problem: SCD to BLE while in bed, continue therapeutic anticoagulation. History Interval history: Patient seen and examined today, no acute distress noted today. Hospitalist Physical - Physical exam Narrative exam: General appearance: Present: mild distress - EENT Eyes: Present: miosis ENT: hearing intact, clear oral mucosa - Neck Neck: Present: supple, normal ROM - Respiratory Respiratory effort: normal Respiratory: bilateral: CTA - Cardiovascular Rhythm: other (tachycardia) - Extremities Extremities: pulses symmetrical Extremity abnormal: edema Peripheral Pulses: within normal limits - Abdominal General gastrointestinal: Present: soft, non-tender, non-distended, normal bowel sounds Male genitourinary: Present: normal - Integumentary Integumentary: Present: clear, warm, dry - Musculoskeletal Musculoskeletal: generalized weakness - Psychiatric Psychiatric: no appropriate mood/affect, no intact judgment & insight, no memory intact - Neurologic Neurologic: no focal deficits, moves all extremities, no gait normal - Constitutional Vitals: Temp Pulse Resp BP Pulse Ox 97.1 F L 55 L 15 117/80 97 10/03/18 00:00 10/03/18 08:00 10/03/18 08:00 10/03/18 08:00 10/03/18 08:00 General appearance: Present: mild distress Results - Labs CBC & Chem 7: 10/04/18 05:07 10/04/18 05:07 Labs: Laboratory Last Values WBC 4.5 K/mm3 (4.5-11.0) 10/03/18 04:40 RBC 2.63 M/mm3 (3.65-5.03) L 10/03/18 04:40 Hgb 11.2 gm/dl (11.8-15.2) L 10/03/18 04:40 Hct 33.6 % (35.5-45.6) L D 10/03/18 04:40 MCV 128 fl (84-94) H 10/03/18 04:40 MCH 42 pg (28-32) H 10/03/18 04:40 MCHC 33 % (32-34) 10/03/18 04:40 RDW 27.3 % (13.2-15.2) H 10/03/18 04:40 Plt Count 163 K/mm3 (140-440) 10/03/18 04:40 Baso % (Auto) Die Cutter Apprentice 10/03/18 04:40 Add Manual Diff Complete 10/03/18 04:40 Total Counted 100 10/03/18 04:40 Seg Neuts % (Manual) 80.0 % (40.0-70.0) H 10/03/18 04:40 Band Neutrophils % 2.0 % 10/03/18 04:40 Lymphocytes % (Manual) 17.0 % (13.4-35.0) 10/03/18 04:40 Reactive Lymphs % (Man) 0 % 10/03/18 04:40 Monocytes % (Manual) 1.0 % (0.0-7.3) 10/03/18 04:40 Eosinophils % (Manual) 0 % (0.0-4.3) 10/03/18 04:40 Basophils % (Manual) 0 % (0.0-1.8) 10/03/18 04:40 Metamyelocytes % 0 % 10/03/18 04:40 Myelocytes % 0 % 10/03/18 04:40 Promyelocytes % 0 % 10/03/18 04:40 Blast Cells % 0 % 10/03/18 04:40 Nucleated RBC % 8.0 % (0.0-0.9) H 10/03/18 04:40 Seg Neutrophils # Man 3.6 K/mm3 (1.8-7.7) 10/03/18 04:40 Band Neutrophils # 0.1 K/mm3 10/03/18 04:40 Lymphocytes # (Manual) 0.8 K/mm3 (1.2-5.4) L 10/03/18 04:40 Abs React Lymphs (Man) 0.0 K/mm3 10/03/18 04:40 Monocytes # (Manual) 0.0 K/mm3 (0.0-0.8) 10/03/18 04:40 Eosinophils # (Manual) 0.0 K/mm3 (0.0-0.4) 10/03/18 04:40 Basophils # (Manual) 0.0 K/mm3 (0.0-0.1) 10/03/18 04:40 Metamyelocytes # 0.0 K/mm3 10/03/18 04:40 Myelocytes # 0.0 K/mm3 10/03/18 04:40 Promyelocytes # 0.0 K/mm3 10/03/18 04:40 Blast Cells # 0.0 K/mm3 10/03/18 04:40 WBC Morphology Not Reportable 10/03/18 04:40 Hypersegmented Neuts Not Reportable 10/03/18 04:40 Hyposegmented Neuts Not Reportable 10/03/18 04:40 Hypogranular Neuts Not Reportable 10/03/18 04:40 Smudge Cells Not Reportable 10/03/18 04:40 Toxic Granulation Not Reportable 10/03/18 04:40 Toxic Vacuolation Not Reportable 10/03/18 04:40 Dohle Bodies Not Reportable 10/03/18 04:40 Pelger-Huet Anomaly Not Reportable 10/03/18 04:40 Amina Rods Not Reportable 10/03/18 04:40 Platelet Estimate Appears normal 10/03/18 04:40 Clumped Platelets Not Reportable 10/03/18 04:40 Plt Clumps, EDTA Not Reportable 10/03/18 04:40 Large Platelets Few 10/03/18 04:40 Giant Platelets Not Reportable 10/03/18 04:40 Platelet Satelliting Not Reportable 10/03/18 04:40 Plt Morphology Comment Not Reportable 10/03/18 04:40 RBC Morphology Not Reportable 10/03/18 04:40 Dimorphic RBCs Not Reportable 10/03/18 04:40 Polychromasia Not Reportable 10/03/18 04:40 Hypochromasia Not Reportable 10/03/18 04:40 Poikilocytosis 1+ 10/03/18 04:40 Anisocytosis 3+ 10/03/18 04:40 Microcytosis Not Reportable 10/03/18 04:40 Macrocytosis 2+ 10/03/18 04:40 Spherocytes Not Reportable 10/03/18 04:40 Pappenheimer Bodies Not Reportable 10/03/18 04:40 Sickle Cells Not Reportable 10/03/18 04:40 Target Cells Not Reportable 10/03/18 04:40 Tear Drop Cells Not Reportable 10/03/18 04:40 Ovalocytes Not Reportable 10/03/18 04:40 Helmet Cells Not Reportable 10/03/18 04:40 [place] Bodies Not Reportable 10/03/18 04:40 [place] Rings Not Reportable 10/03/18 04:40 [place] Cells Not Reportable 10/03/18 04:40 Bite Cells Not Reportable 10/03/18 04:40 Crenated Cell Not Reportable 10/03/18 04:40 Elliptocytes Not Reportable 10/03/18 04:40 Acanthocytes (Spur) Not Reportable 10/03/18 04:40 Rouleaux Not Reportable 10/03/18 04:40 Hemoglobin C Crystals Not Reportable 10/03/18 04:40 Schistocytes Not Reportable 10/03/18 04:40 Malaria parasites Not Reportable 10/03/18 04:40 [place] Bodies Not Reportable 10/03/18 04:40 Hem Pathologist Commnt No 10/03/18 04:40 PT 21.9 Sec. (12.2-14.9) H 10/02/18 12:06 INR 1.78 (0.87-1.13) H 10/02/18 12:06 APTT 36.0 Sec. (24.2-36.6) 10/02/18 12:06 Sodium 142 mmol/L (137-145) 10/03/18 04:40 Potassium 5.0 mmol/L (3.6-5.0) 10/03/18 04:40 Chloride 107.9 mmol/L (98-107) H 10/03/18 04:40 Carbon Dioxide 20 mmol/L (22-30) L 10/03/18 04:40 Anion Gap 19 mmol/L 10/03/18 04:40 BUN 45 mg/dL (9-20) H 10/03/18 04:40 Creatinine 1.6 mg/dL (0.8-1.5) H 10/03/18 04:40 Estimated GFR 51 ml/min 10/03/18 04:40 BUN/Creatinine Ratio 28 % 10/03/18 04:40 Glucose 75 mg/dL (75-100) 10/03/18 04:40 POC Glucose 71 (70-105) 10/02/18 12:30 Lactic Acid 1.30 mmol/L (0.7-2.0) 10/03/18 08:22 Calcium 8.7 mg/dL (8.4-10.2) 10/03/18 04:40 Magnesium 2.20 mg/dL (1.7-2.3) 10/02/18 13:13 Total Bilirubin 4.20 mg/dL (0.1-1.2) H 10/02/18 13:13 Direct Bilirubin 2.3 mg/dL (0-0.2) H 10/02/18 13:13 Indirect Bilirubin 1.9 mg/dL 10/02/18 13:13 AST 169 units/L (5-40) H 10/02/18 13:13 ALT 224 units/L (7-56) H 10/02/18 13:13 Alkaline Phosphatase 58 units/L (35-129) 10/02/18 13:13 Ammonia 41.0 umol/L (25-60) 10/02/18 13:13 Total Creatine Kinase 69 units/L (55-170) 10/02/18 13:13 CK-MB (CK-2) 4.5 ng/mL (0.0-4.0) H 10/02/18 13:13 CK-MB (CK-2) Rel Index 6.5 (0-4) H 10/02/18 13:13 Troponin T 0.031 ng/mL (0.00-0.029) H 10/02/18 13:13 NT-Pro-B Natriuret Pep 35217 pg/mL (0-900) H 10/02/18 13:13 Total Protein 6.9 g/dL (6.3-8.2) D 10/02/18 13:13 Albumin 3.3 g/dL (3.9-5) L 10/02/18 13:13 Albumin/Globulin Ratio 0.9 % 10/02/18 13:13 Triglycerides 52 mg/dL (2-149) 10/02/18 13:13 Cholesterol 111 mg/dL (50-199) 10/02/18 13:13 LDL Cholesterol Direct 77 mg/dL (50-130) 10/02/18 13:13 HDL Cholesterol 40 mg/dL (40-59) 10/02/18 13:13 Cholesterol/HDL Ratio 2.77 % 10/02/18 13:13 TSH 5.690 mlU/mL (0.270-4.200) H 10/02/18 13:13 Free T4 1.30 ng/dL (0.76-1.46) 10/02/18 13:13 Urine Color Nel (Yellow) 10/02/18 Unknown Urine Turbidity Clear (Clear) 10/02/18 Unknown Urine pH 5.0 (5.0-7.0) 10/02/18 Unknown Ur Specific [place] 1.035 (1.003-1.030) H 10/02/18 Unknown Urine Protein 30 mg/dl mg/dL (Negative) 10/02/18 Unknown Urine Glucose (UA) Neg mg/dL (Negative) 10/02/18 Unknown Urine Ketones Neg mg/dL (Negative) 10/02/18 Unknown Urine Blood Neg (Negative) 10/02/18 Unknown Urine Nitrite Neg (Negative) 10/02/18 Unknown Urine Bilirubin Neg (Negative) 10/02/18 Unknown Urine Urobilinogen 4.0 mg/dL (<2.0) 10/02/18 Unknown Ur Leukocyte Esterase Neg (Negative) 10/02/18 Unknown Urine WBC (Auto) 2.0 /HPF (0.0-6.0) 10/02/18 Unknown Urine RBC (Auto) 1.0 /HPF (0.0-6.0) 10/02/18 Unknown U Epithel Cells (Auto) 1.0 /HPF (0-13.0) 10/02/18 Unknown Urine Bacteria (Auto) 1+ /HPF (Negative) 10/02/18 Unknown Hyaline Casts 6 /LPF 10/02/18 Unknown Urine Mucus 1+ /HPF 10/02/18 Unknown Urine Opiates Screen Presumptive negative 10/02/18 Unknown Urine Methadone Screen Presumptive negative 10/02/18 Unknown Ur Barbiturates Screen Presumptive negative 10/02/18 Unknown Ur Phencyclidine Scrn Presumptive negative 10/02/18 Unknown Ur Amphetamines Screen Presumptive negative 10/02/18 Unknown U Benzodiazepines Scrn Presumptive negative 10/02/18 Unknown Urine Cocaine Screen Presumptive negative 10/02/18 Unknown U Marijuana (THC) Screen Presumptive negative 10/02/18 Unknown Drugs of Abuse Note Disclamer 10/02/18 Unknown Active Medications - Current Medications Current Medications: Generic Name Dose Route Start Last Admin Trade Name Freq PRN Reason Stop Dose Admin Acetaminophen/Hydrocodone Bitart 1 each 10/02/18 18:24 [place] 5/325 PO Q4HR PRN Pain Albuterol 2.5 mg 10/02/18 18:25 Proventil IH Q3HRT PRN Shortness Of Breath Atorvastatin Calcium 20 mg 10/02/18 22:00 10/02/18 21:25 Lipitor PO 20 mg QHS BIBIANA Administration Carvedilol 12.5 mg 10/02/18 22:00 10/02/18 21:26 Coreg PO 12.5 mg BID BIBIANA Administration Diltiazem HCl 30 mg 10/03/18 00:00 10/03/18 07:00 Cardizem PO Not Given Q6HR BIBIANA Enoxaparin Sodium 60 mg 10/02/18 22:00 10/02/18 21:25 Lovenox 1 mg/kg (60 mg) 60 mg SUB-Q Administration Q12HR BIBIANA Famotidine 10 mg 10/02/18 22:00 10/02/18 21:25 Pepcid PO 10 mg BID BIBIANA Administration Furosemide 40 mg 10/03/18 06:00 10/03/18 07:01 Lasix IV Not Given BID@0600,1800 BIBIANA Vancomycin HCl 750 mg/ Sodium 265 mls @ 176.667 mls/hr 10/03/18 16:00 Chloride IV Q24H BIBIANA Losartan Potassium 25 mg 10/03/18 10:00 Cozaar PO DAILY BIBIANA Potassium Chloride 10 meq 10/03/18 10:00 K-Dur PO QDAY BIBIANA Sodium Chloride 10 ml 10/02/18 22:00 10/02/18 21:27 Sodium Chloride Flush Syringe 10 Ml IV 10 ml BID BIBIANA Administration Sodium Chloride 10 ml 10/02/18 18:25 Sodium Chloride Flush Syringe 10 Ml IV PRN PRN LINE FLUSH Spironolactone 25 mg 10/03/18 10:00 Aldactone PO DAILY BIBIANA
[2018-10-03] MEDS ORDERED: K-DUR PO SCH (10:00)
[2018-10-03] MEDS ORDERED: PLAVIX PO SCH (10:00)
[2018-10-03] MEDS: COZAAR PO SCH (10:03)
[2018-10-03] MEDS: ALDACTONE PO SCH (10:03)
[2018-10-03] MEDS: COREG PO SCH ×2 (10:03→21:41)
[2018-10-03] MEDS: PEPCID PO SCH ×2 (10:04→21:41)
[2018-10-03] MEDS: LOVENOX SUB-Q SCH ×2 (10:04→21:40)
[2018-10-03] MEDS: SODIUM CHLORIDE FLUSH SYRINGE 10 ML IV SCH (10:06)
--- NOTE | 2018-10-03 11:26 | Consultation ---
History of Present Illness Consult date: 10/03/18 Requesting physician: VALENTE SOSA Consult reason: atrial fibrillation History of present illness: Patient unable to provide any history. History obtained from the chart. Patient currently admitted to the [facility]. Patient is a 73 YO Male with HTN, HLD, CVA, dilated cardiomyopathy with EF of 15%, COPD, GERD, End Stage Liver Disease, Dementia, Debility was brought to the ED by family as they noticed decreased verbalization, decreased interaction with family, increased confusion, decreased oral intake, insomnia, worsening daytime somnolence, increased garbled speech with worsening symptoms over the past 1 week. In the emergency room patient was noted to have A. fib with RVR. Currently heart rate better controlled. No further history could be obtained from the patient.. Past History Past Medical History: COPD, heart failure, hypertension, stroke Past Surgical History: Other (Right BKA, Heart Cath) Social history: , lives with family. denies: smoking, alcohol abuse, prescription drug abuse Family history: diabetes, hypertension Medications and Allergies Allergies Allergy/AdvReac Type Severity Reaction Status Date / Time No Known Allergies Allergy Verified 06/24/17 14:41 Home Medications Medication Instructions Recorded Confirmed Last Taken Type AtorvaSTATin [Lipitor] 20 mg PO QHS #30 tablet 07/10/18 10/02/18 07/27/18 Rx Carvedilol [Coreg] 12.5 mg PO BID #60 tablet 07/10/18 10/02/18 07/27/18 Rx Clopidogrel [Plavix] 75 mg PO DAILY #30 tablet 07/10/18 10/02/18 07/25/18 Rx Famotidine [Pepcid] 20 mg PO BID #60 tablet 07/10/18 10/02/18 07/27/18 Rx Furosemide [Lasix TAB] 40 mg PO QDAY #30 tablet 07/10/18 10/02/18 07/27/18 Rx Losartan [Cozaar] 25 mg PO DAILY #30 tablet 07/10/18 10/02/18 07/27/18 Rx Potassium Chloride [K-Dur] 10 meq PO QDAY #30 tablet 07/10/18 10/02/18 07/27/18 Rx Spironolactone [Aldactone] 25 mg PO DAILY #30 tablet 07/10/18 10/02/18 07/27/18 Rx HYDROcodone/APAP 5-325 [[place] 1 each PO Q4HR PRN #20 tablet 07/28/18 10/02/18 Unknown Rx 5/325] Active Meds: Active Medications Acetaminophen/Hydrocodone Bitart ([place] 5/325) 1 each PO Q4HR PRN PRN Reason: Pain Albuterol (Proventil) 2.5 mg IH Q3HRT PRN PRN Reason: Shortness Of Breath Atorvastatin Calcium (Lipitor) 20 mg PO QHS [facility] Last Admin: 10/02/18 21:25 Dose: 20 mg Documented by: Carvedilol (Coreg) 12.5 mg PO BID [facility] Last Admin: 10/03/18 10:03 Dose: 12.5 mg Documented by: Diltiazem HCl (Cardizem) 30 mg PO Q6HR [facility] Last Admin: 10/03/18 07:00 Dose: Not Given Documented by: Enoxaparin Sodium (Lovenox) 60 mg 1 mg/kg (60 mg) SUB-Q Q12HR [facility] Last Admin: 10/03/18 10:04 Dose: 60 mg Documented by: Famotidine (Pepcid) 10 mg PO BID [facility] Last Admin: 10/03/18 10:04 Dose: 10 mg Documented by: Furosemide (Lasix) 40 mg IV BID@0600,1800 [facility] Last Admin: 10/03/18 07:01 Dose: Not Given Documented by: Vancomycin HCl 750 mg/ Sodium (Chloride) 265 mls @ 176.667 mls/hr IV Q24H [facility] Losartan Potassium (Cozaar) 25 mg PO DAILY [facility] Last Admin: 10/03/18 10:03 Dose: 25 mg Documented by: Potassium Chloride (K-Dur) 10 meq PO QDAY [facility] Last Admin: 10/03/18 10:04 Dose: 10 meq Documented by: Sodium Chloride (Sodium Chloride Flush Syringe 10 Ml) 10 ml IV BID [facility] Last Admin: 10/03/18 10:06 Dose: 10 ml Documented by: Sodium Chloride (Sodium Chloride Flush Syringe 10 Ml) 10 ml IV PRN PRN PRN Reason: LINE FLUSH Spironolactone (Aldactone) 25 mg PO DAILY [facility] Last Admin: 10/03/18 10:03 Dose: 25 mg Documented by: Review of Systems ROS unobtainable: due to mental status Physical Examination Vital Signs Pulse Resp BP Pulse Ox 117 H 25 H 123/90 95 10/02/18 11:40 10/02/18 11:40 10/02/18 11:40 10/02/18 11:40 Narrative exam: Vitals reviewed GEN: Alert but nonverbal HEENT: Carotids 2+ NECK: Supple CVS: S1 and S2 heard no significant murmur or gallop noted LUNGS/CHEST: Normal auscultation ABD: Soft nontender Extremities: No edema noted normal color NEURO: Alert moves all all 4 extremities Results 10/03/18 04:40 10/03/18 04:40 Cardiac Enzymes 10/02/18 10/02/18 10/02/18 Range/Units 12:06 13:13 13:13 AST 541 H 169 H (5-40) units/L CK-MB (CK-2) 4.5 H (0.0-4.0) ng/mL Coagulation 10/02/18 Range/Units 12:06 PT 21.9 H (12.2-14.9) Sec. INR 1.78 H (0.87-1.13) APTT 36.0 (24.2-36.6) Sec. Lipids 10/02/18 Range/Units 13:13 Triglycerides 52 (2-149) mg/dL Cholesterol 111 (50-199) mg/dL HDL Cholesterol 40 (40-59) mg/dL Cholesterol/HDL Ratio 2.77 % CBC 10/02/18 10/03/18 Range/Units 12:06 04:40 WBC 3.3 L 4.5 (4.5-11.0) K/mm3 RBC 3.31 L 2.63 L (3.65-5.03) M/mm3 Hgb 13.8 11.2 L (11.8-15.2) gm/dl Hct 42.2 33.6 L D (35.5-45.6) % Plt Count 196 163 (140-440) K/mm3 Comprehensive Metabolic Panel 10/02/18 10/02/18 10/02/18 Range/Units 12:06 13:13 13:13 Sodium 140 (137-145) mmol/L Potassium 5.1 H (3.6-5.0) mmol/L Chloride 104.4 (98-107) mmol/L Carbon Dioxide 18 L (22-30) mmol/L BUN 42 H (9-20) mg/dL Creatinine 1.5 (0.8-1.5) mg/dL Glucose 106 H (75-100) mg/dL Calcium 8.9 (8.4-10.2) mg/dL Direct Bilirubin 1.6 H 2.3 H (0-0.2) mg/dL Indirect Bilirubin 3.8 1.9 mg/dL AST 541 H 169 H (5-40) units/L ALT 320 H 224 H (7-56) units/L Alkaline Phosphatase 21 L 58 (35-129) units/L Total Protein 10.4 H 6.9 D (6.3-8.2) g/dL Albumin 4.2 3.3 L (3.9-5) g/dL / Range/Units 04:40 Sodium 142 (137-145) mmol/L Potassium 5.0 (3.6-5.0) mmol/L Chloride 107.9 H (98-107) mmol/L Carbon Dioxide 20 L (22-30) mmol/L BUN 45 H (9-20) mg/dL Creatinine 1.6 H (0.8-1.5) mg/dL Glucose 75 (75-100) mg/dL Calcium 8.7 (8.4-10.2) mg/dL Direct Bilirubin (0-0.2) mg/dL Indirect Bilirubin mg/dL AST (5-40) units/L ALT (7-56) units/L Alkaline Phosphatase (35-129) units/L Total Protein (6.3-8.2) g/dL Albumin (3.9-5) g/dL EKG interpretations - Telemetry EKG Rhythm: Atrial Fibrillation (nonspecific interventricular conduction delay) Assessment and Plan Impression * Change in mental status/and to follow-up with the * Sick sinus syndrome * Dilated end-stage cardiomyopathy * Metabolic and nephropathy * Dementia * Failure to thrive Plan DC Cardizem Continue Coreg Patient is not a candidate for aggressive workup or AICD Conservative care
--- NOTE | 2018-10-03 11:30 | Cat Scan Report ---
PROCEDURE: CT CHEST W CON TECHNIQUE: CT of the chest was performed. IV contrast was administered. Axial images and coronal and sagittal reformatted images were obtained. HISTORY: pleural effusion COMPARISON: None FINDINGS: There is a moderate right pleural effusion. There is a small left pleural effusion. There is moderate cardiomegaly. There is some retrograde flow contrast material into IVC and hepatic veins suggesting right heart failure. There is moderate emphysema. There is dependent/compressive atelectasis in lower lungs adjacent to pleural effusions. There is no pneumothorax seen. There is no abnormal mediastinal or hilar mass seen. There is moderate ascites seen in visualized upper abdomen. There is generalized edema. IMPRESSION: Moderate left and small right pleural effusions. Moderate ascites and generalized edema. Moderate cardiomegaly with retrograde contrast flow into IVC and hepatic veins. This is suggestive of some degree of right heart failure. Moderate emphysema. This document is electronically signed by Milly Ji MD., October 03 2018 11:28:38 AM ET
[2018-10-03 11:38] LABS: Albumin 3.1 g/dL (3.9-5); Bilirubin,Direct 1.7 mg/dL (0-0.2)
[2018-10-03] MEDS ORDERED: VANCOMYCIN 750 MG in NACL 0.9% 250ML 250 ML IV SCH (16:00)
[2018-10-03] MEDS ORDERED: NACL 0.9% 1000 ML 1,000 ML IV ONE (21:00)
[2018-10-03] MEDS ORDERED: NACL 0.9% 250ML 250 ML IV ONE (21:26)
[2018-10-04] MEDS: CARDIZEM PO SCH ×2 (01:30→05:42)
[2018-10-04] MEDS: LASIX IV SCH ×2 (05:43→18:51)
[2018-10-04 06:13] LABS: Hematocrit 31.4 % (35.5-45.6); Hemoglobin 10.8 gm/dl (11.8-15.2); Mean Corpuscular HGB Conc 34 % (32-34); Platelet Count 153 K/mm3 (140-440); Red Blood Count 2.49 M/mm3 (3.65-5.03)
[2018-10-04 06:19] LABS: Mean Corpuscular Volume 126 fl (84-94); Red Cell Distribution Width 26.6 % (13.2-15.2)
[2018-10-04 06:35] LABS: Calcium 8.4 mg/dL (8.4-10.2)
[2018-10-04] MEDS: ALDACTONE PO SCH (09:10)
[2018-10-04] MEDS: LOVENOX SUB-Q SCH (09:10)
[2018-10-04] MEDS: PEPCID PO SCH ×2 (09:11→21:21)
[2018-10-04] MEDS: COZAAR PO SCH (09:11)
[2018-10-04] MEDS: COREG PO SCH ×2 (09:11→21:21)
--- NOTE | 2018-10-04 11:09 | Progress Note ---
Assessment and Plan Change in mental status Paroxysmal Atrial fib/flutter with underlying sick sinus syndrome Dilated Nonischemic cardiomyopathy Ef 15-20% by echo 06/2018 no ischemia by MPI 06/2018 Hypertension History of CVA History of COPD Subjective Date of service: 10/04/18 Interval history: Resting in bed comfortably. No distress noted. Objective Vital Signs Temp Pulse Resp BP BP Pulse Ox 10/04/18 08:10 97.3 F L 54 L 16 106/63 92 10/04/18 05:42 47 L 87/60 10/04/18 05:39 47 L 87/60 10/04/18 05:33 45 L 97 10/04/18 02:00 35 L 10/04/18 01:30 53 L 10/04/18 00:09 92.8 F L 45 L 18 100/74 97 10/03/18 21:19 92.2 F L 45 L 18 73/51 95 10/03/18 21:15 73/51 10/03/18 20:07 37 L 20 77/51 86 10/03/18 19:11 53 L 15 79/50 96 10/03/18 19:01 53 L 17 90/59 10/03/18 18:50 53 L 16 90/59 99 10/03/18 18:49 53 L 15 67/38 98 10/03/18 18:47 53 L 12 67/38 98 10/03/18 18:44 53 L 16 67/38 97 10/03/18 18:43 53 L 8 L 88/58 74 L 10/03/18 18:41 53 L 10 L 88/58 94 10/03/18 18:39 53 L 14 88/58 97 10/03/18 18:37 54 L 14 88/58 96 10/03/18 18:35 54 L 15 88/58 95 10/03/18 18:33 54 L 14 88/58 96 10/03/18 18:31 54 L 14 88/58 96 10/03/18 18:29 54 L 16 88/58 95 10/03/18 18:27 54 L 12 88/58 96 10/03/18 18:25 54 L 17 88/58 95 10/03/18 18:23 53 L 13 88/58 97 10/03/18 18:21 54 L 16 88/58 97 10/03/18 18:19 54 L 19 88/58 94 10/03/18 18:17 54 L 9 L 88/58 93 10/03/18 18:15 54 L 15 88/58 95 10/03/18 18:13 54 L 18 88/58 94 10/03/18 18:11 54 L 12 88/58 94 10/03/18 18:09 54 L 17 88/58 94 10/03/18 18:07 54 L 22 88/58 94 10/03/18 18:05 54 L 15 88/58 95 10/03/18 18:03 54 L 16 88/58 95 10/03/18 18:01 54 L 19 88/58 95 10/03/18 17:59 54 L 17 92/63 95 10/03/18 17:57 54 L 13 92/63 92 10/03/18 17:55 54 L 21 92/63 93 10/03/18 17:53 54 L 16 92/63 100 10/03/18 17:51 54 L 18 92/63 95 10/03/18 17:49 54 L 17 92/63 95 10/03/18 17:47 53 L 12 92/63 97 10/03/18 17:45 57 L 12 92/63 98 10/03/18 17:43 53 L 13 92/63 97 10/03/18 17:41 54 L 18 92/63 98 10/03/18 17:39 54 L 19 92/63 98 10/03/18 17:37 54 L 10 L 92/63 97 10/03/18 17:35 54 L 17 114/94 96 10/03/18 17:33 54 L 17 114/94 96 10/03/18 17:31 54 L 13 114/94 98 10/03/18 17:29 54 L 16 114/94 98 10/03/18 17:27 54 L 14 114/94 99 10/03/18 17:25 54 L 17 114/94 99 10/03/18 17:23 55 L 14 114/94 98 10/03/18 17:21 54 L 13 114/94 97 10/03/18 17:19 54 L 15 114/94 98 10/03/18 17:17 54 L 16 114/94 98 10/03/18 17:15 59 L 18 114/94 98 10/03/18 17:13 54 L 13 114/94 98 10/03/18 17:01 65 114/94 10/03/18 16:00 97.2 F L 54 L 15 92/63 98 10/03/18 15:00 74 16 102/66 97 10/03/18 14:00 55 L 14 99/68 92 10/03/18 13:14 74 111/79 10/03/18 13:00 55 L 15 101/74 97 10/03/18 12:00 74 14 111/79 92 10/03/18 11:19 100 H 16 110/89 93 - Physical Examination General: No Apparent Distress Cardiac: Positive: Reg Rate and Rhythm - Labs and Meds Cardiac Enzymes 10/03/18 10/04/18 Range/Units 04:40 05:07 AST 166 H 102 H (5-40) units/L CBC 10/04/18 Range/Units 05:07 WBC 3.8 L (4.5-11.0) K/mm3 RBC 2.49 L (3.65-5.03) M/mm3 Hgb 10.8 L (11.8-15.2) gm/dl Hct 31.4 L (35.5-45.6) % Plt Count 153 (140-440) K/mm3 Comprehensive Metabolic Panel 10/03/18 10/04/18 Range/Units 04:40 05:07 Sodium 141 (137-145) mmol/L Potassium 5.0 (3.6-5.0) mmol/L Chloride 107.1 H (98-107) mmol/L Carbon Dioxide 22 (22-30) mmol/L BUN 46 H (9-20) mg/dL Creatinine 1.6 H (0.8-1.5) mg/dL Glucose 111 H (75-100) mg/dL Calcium 8.4 (8.4-10.2) mg/dL Direct Bilirubin 1.7 H (0-0.2) mg/dL Indirect Bilirubin 1.5 mg/dL AST 166 H 102 H (5-40) units/L ALT 197 H 159 H (7-56) units/L Alkaline Phosphatase 52 60 (35-129) units/L Total Protein 6.3 6.1 L (6.3-8.2) g/dL Albumin 3.1 L 3.0 L (3.9-5) g/dL
[2018-10-04] MEDS: ROCEPHIN/NS 1 GM/50 ML 1 GM/50 ML BAG IV SCH (13:05)
[2018-10-04 16:55] LABS: INR 1.76 (0.87-1.13)
--- NOTE | 2018-10-04 18:53 | Progress Note ---
Assessment and Plan Assessment and plan: 73 YO Male with HTN, HLD, CVA, Systolic CHF(EF 15%), COPD, GERD, End Stage Liver Disease, Dementia, Debility presents to ED for evaluation. Pt is nonverbal and unable to provide history. Pt history taken from daughter. As per daughter, the patient has experienced decreased verbalization, decreased interaction with family, increased confusion, decreased oral intake, insomnia, worsening daytime somnolence, increased garbled speech with worsening symptoms over the past 1 week. Pt family became concerned today after several days of the aforementioned symptoms. EMS was notified, and upon arrival the patient was found to have Atrial Fib/Flutter and transported to [facility] ED. Pt seen and evaluated in ED and found to have Encephalopathy, CHF Decompensation, and Atrial fib/Flutter. Pt family also reports visual hallucinations 2 weeks ago with resulted in the patient calling the police. Pt was sleeping with a loaded gun at his bedside. Pt daughter reports worsening visual hallucinations. Pt gun was taken prior to transport to [facility]. Pt admitted to IMCU and initiated on Cardizem, as well as therapeutic anticoagulation. [id number] Score:5. Prior admission on 07/08/18 reviewed. Acute Metabolic Encephalopathy Metabolic Acidosis Pleural Effusion Passive hepatic congestion Paroxysmal Atrial fib/flutter with underlying sick sinus syndrome CKD Dilated Nonischemic cardiomyopathy Ef 15-20% by echo 06/2018 no ischemia by MPI 06/2018 Secondary Hypercoagulable state Hypertension History of CVA History of COPD Plan Conservative Management per cardiology Protocol Strict I/O, daily weight, BNP, monitor uop q shift, diuresis, Prior Echo on 07/08/18 reviewed MRI brain to evaluate the encephalopathy Restart Plavix in AM after thoracentsis Aspiration precautions Diagnostic Thoracentsis Mental health evaluation DVT/GI prophy Discharge Per hospital course History Interval history: Patient seen and examined today, no acute distress noted today. Hospitalist Physical - Physical exam Narrative exam: General appearance: Present: mild distress - EENT Eyes: Present: miosis ENT: hearing intact, clear oral mucosa - Neck Neck: Present: supple, normal ROM - Respiratory Respiratory effort: normal Respiratory: bilateral: CTA - Cardiovascular Rhythm: other S1, S2 - Extremities Extremities: pulses symmetrical Extremity abnormal: edema Peripheral Pulses: within normal limits - Abdominal General gastrointestinal: Present: soft, non-tender, non-distended, normal bowel sounds Male genitourinary: Present: normal - Integumentary Integumentary: Present: clear, warm, dry - Musculoskeletal Musculoskeletal: generalized weakness - Psychiatric Psychiatric: no appropriate mood/affect, no intact judgment & insight, no memory intact - Neurologic Neurologic: no focal deficits, moves all extremities, no gait normal - Constitutional Vitals: Temp Pulse Resp BP Pulse Ox 97.6 F 50 L 16 100/68 94 10/04/18 12:34 10/04/18 12:34 10/04/18 12:34 10/04/18 12:34 10/04/18 12:34 General appearance: Present: mild distress Results - Labs CBC & Chem 7: 10/04/18 05:07 10/04/18 05:07 Labs: Laboratory Last Values WBC 3.8 K/mm3 (4.5-11.0) L 10/04/18 05:07 RBC 2.49 M/mm3 (3.65-5.03) L 10/04/18 05:07 Hgb 10.8 gm/dl (11.8-15.2) L 10/04/18 05:07 Hct 31.4 % (35.5-45.6) L 10/04/18 05:07 MCV 126 fl (84-94) H 10/04/18 05:07 MCH 43 pg (28-32) H 10/04/18 05:07 MCHC 34 % (32-34) 10/04/18 05:07 RDW 26.6 % (13.2-15.2) H 10/04/18 05:07 Plt Count 153 K/mm3 (140-440) 10/04/18 05:07 Baso % (Auto) Unarmed Security Officer 10/03/18 04:40 Add Manual Diff Complete 10/03/18 04:40 Total Counted 100 10/03/18 04:40 Seg Neuts % (Manual) 80.0 % (40.0-70.0) H 10/03/18 04:40 Band Neutrophils % 2.0 % 10/03/18 04:40 Lymphocytes % (Manual) 17.0 % (13.4-35.0) 10/03/18 04:40 Reactive Lymphs % (Man) 0 % 10/03/18 04:40 Monocytes % (Manual) 1.0 % (0.0-7.3) 10/03/18 04:40 Eosinophils % (Manual) 0 % (0.0-4.3) 10/03/18 04:40 Basophils % (Manual) 0 % (0.0-1.8) 10/03/18 04:40 Metamyelocytes % 0 % 10/03/18 04:40 Myelocytes % 0 % 10/03/18 04:40 Promyelocytes % 0 % 10/03/18 04:40 Blast Cells % 0 % 10/03/18 04:40 Nucleated RBC % 8.0 % (0.0-0.9) H 10/03/18 04:40 Seg Neutrophils # Man 3.6 K/mm3 (1.8-7.7) 10/03/18 04:40 Band Neutrophils # 0.1 K/mm3 10/03/18 04:40 Lymphocytes # (Manual) 0.8 K/mm3 (1.2-5.4) L 10/03/18 04:40 Abs React Lymphs (Man) 0.0 K/mm3 10/03/18 04:40 Monocytes # (Manual) 0.0 K/mm3 (0.0-0.8) 10/03/18 04:40 Eosinophils # (Manual) 0.0 K/mm3 (0.0-0.4) 10/03/18 04:40 Basophils # (Manual) 0.0 K/mm3 (0.0-0.1) 10/03/18 04:40 Metamyelocytes # 0.0 K/mm3 10/03/18 04:40 Myelocytes # 0.0 K/mm3 10/03/18 04:40 Promyelocytes # 0.0 K/mm3 10/03/18 04:40 Blast Cells # 0.0 K/mm3 10/03/18 04:40 WBC Morphology Not Reportable 10/03/18 04:40 Hypersegmented Neuts Not Reportable 10/03/18 04:40 Hyposegmented Neuts Not Reportable 10/03/18 04:40 Hypogranular Neuts Not Reportable 10/03/18 04:40 Smudge Cells Not Reportable 10/03/18 04:40 Toxic Granulation Not Reportable 10/03/18 04:40 Toxic Vacuolation Not Reportable 10/03/18 04:40 Dohle Bodies Not Reportable 10/03/18 04:40 Pelger-Huet Anomaly Not Reportable 10/03/18 04:40 Amina Rods Not Reportable 10/03/18 04:40 Platelet Estimate Appears normal 10/03/18 04:40 Clumped Platelets Not Reportable 10/03/18 04:40 Plt Clumps, EDTA Not Reportable 10/03/18 04:40 Large Platelets Few 10/03/18 04:40 Giant Platelets Not Reportable 10/03/18 04:40 Platelet Satelliting Not Reportable 10/03/18 04:40 Plt Morphology Comment Not Reportable 10/03/18 04:40 RBC Morphology Not Reportable 10/03/18 04:40 Dimorphic RBCs Not Reportable 10/03/18 04:40 Polychromasia Not Reportable 10/03/18 04:40 Hypochromasia Not Reportable 10/03/18 04:40 Poikilocytosis 1+ 10/03/18 04:40 Anisocytosis 3+ 10/03/18 04:40 Microcytosis Not Reportable 10/03/18 04:40 Macrocytosis 2+ 10/03/18 04:40 Spherocytes Not Reportable 10/03/18 04:40 Pappenheimer Bodies Not Reportable 10/03/18 04:40 Sickle Cells Not Reportable 10/03/18 04:40 Target Cells Not Reportable 10/03/18 04:40 Tear Drop Cells Not Reportable 10/03/18 04:40 Ovalocytes Not Reportable 10/03/18 04:40 Helmet Cells Not Reportable 10/03/18 04:40 [place] Bodies Not Reportable 10/03/18 04:40 [place] Rings Not Reportable 10/03/18 04:40 [place] Cells Not Reportable 10/03/18 04:40 Bite Cells Not Reportable 10/03/18 04:40 Crenated Cell Not Reportable 10/03/18 04:40 Elliptocytes Not Reportable 10/03/18 04:40 Acanthocytes (Spur) Not Reportable 10/03/18 04:40 Rouleaux Not Reportable 10/03/18 04:40 Hemoglobin C Crystals Not Reportable 10/03/18 04:40 Schistocytes Not Reportable 10/03/18 04:40 Malaria parasites Not Reportable 10/03/18 04:40 [place] Bodies Not Reportable 10/03/18 04:40 Hem Pathologist Commnt No 10/03/18 04:40 PT 21.7 Sec. (12.2-14.9) H 10/04/18 15:17 INR 1.76 (0.87-1.13) H 10/04/18 15:17 APTT 36.0 Sec. (24.2-36.6) 10/02/18 12:06 Sodium 141 mmol/L (137-145) 10/04/18 05:07 Potassium 5.0 mmol/L (3.6-5.0) 10/04/18 05:07 Chloride 107.1 mmol/L (98-107) H 10/04/18 05:07 Carbon Dioxide 22 mmol/L (22-30) 10/04/18 05:07 Anion Gap 17 mmol/L 10/04/18 05:07 BUN 46 mg/dL (9-20) H 10/04/18 05:07 Creatinine 1.6 mg/dL (0.8-1.5) H 10/04/18 05:07 Estimated GFR 51 ml/min 10/04/18 05:07 BUN/Creatinine Ratio 29 % 10/04/18 05:07 Glucose 111 mg/dL (75-100) H 10/04/18 05:07 POC Glucose 71 (70-105) 10/02/18 12:30 Lactic Acid 1.30 mmol/L (0.7-2.0) 10/03/18 08:22 Calcium 8.4 mg/dL (8.4-10.2) 10/04/18 05:07 Magnesium 2.20 mg/dL (1.7-2.3) 10/02/18 13:13 Total Bilirubin 2.20 mg/dL (0.1-1.2) H 10/04/18 05:07 Direct Bilirubin 1.7 mg/dL (0-0.2) H 10/03/18 04:40 Indirect Bilirubin 1.5 mg/dL 10/03/18 04:40 AST 102 units/L (5-40) H 10/04/18 05:07 ALT 159 units/L (7-56) H 10/04/18 05:07 Alkaline Phosphatase 60 units/L (35-129) 10/04/18 05:07 Ammonia 41.0 umol/L (25-60) 10/02/18 13:13 Total Creatine Kinase 69 units/L (55-170) 10/02/18 13:13 CK-MB (CK-2) 4.5 ng/mL (0.0-4.0) H 10/02/18 13:13 CK-MB (CK-2) Rel Index 6.5 (0-4) H 10/02/18 13:13 Troponin T 0.031 ng/mL (0.00-0.029) H 10/02/18 13:13 NT-Pro-B Natriuret Pep 32504 pg/mL (0-900) H 10/02/18 13:13 Total Protein 6.1 g/dL (6.3-8.2) L 10/04/18 05:07 Albumin 3.0 g/dL (3.9-5) L 10/04/18 05:07 Albumin/Globulin Ratio 1.0 % 10/04/18 05:07 Triglycerides 52 mg/dL (2-149) 10/02/18 13:13 Cholesterol 111 mg/dL (50-199) 10/02/18 13:13 LDL Cholesterol Direct 77 mg/dL (50-130) 10/02/18 13:13 HDL Cholesterol 40 mg/dL (40-59) 10/02/18 13:13 Cholesterol/HDL Ratio 2.77 % 10/02/18 13:13 TSH 5.690 mlU/mL (0.270-4.200) H 10/02/18 13:13 Free T4 1.30 ng/dL (0.76-1.46) 10/02/18 13:13 Urine Color Nel (Yellow) 10/02/18 Unknown Urine Turbidity Clear (Clear) 10/02/18 Unknown Urine pH 5.0 (5.0-7.0) 10/02/18 Unknown Ur Specific [place] 1.035 (1.003-1.030) H 10/02/18 Unknown Urine Protein 30 mg/dl mg/dL (Negative) 10/02/18 Unknown Urine Glucose (UA) Neg mg/dL (Negative) 10/02/18 Unknown Urine Ketones Neg mg/dL (Negative) 10/02/18 Unknown Urine Blood Neg (Negative) 10/02/18 Unknown Urine Nitrite Neg (Negative) 10/02/18 Unknown Urine Bilirubin Neg (Negative) 10/02/18 Unknown Urine Urobilinogen 4.0 mg/dL (<2.0) 10/02/18 Unknown Ur Leukocyte Esterase Neg (Negative) 10/02/18 Unknown Urine WBC (Auto) 2.0 /HPF (0.0-6.0) 10/02/18 Unknown Urine RBC (Auto) 1.0 /HPF (0.0-6.0) 10/02/18 Unknown U Epithel Cells (Auto) 1.0 /HPF (0-13.0) 10/02/18 Unknown Urine Bacteria (Auto) 1+ /HPF (Negative) 10/02/18 Unknown Hyaline Casts 6 /LPF 10/02/18 Unknown Urine Mucus 1+ /HPF 10/02/18 Unknown Urine Opiates Screen Presumptive negative 10/02/18 Unknown Urine Methadone Screen Presumptive negative 10/02/18 Unknown Ur Barbiturates Screen Presumptive negative 10/02/18 Unknown Ur Phencyclidine Scrn Presumptive negative 10/02/18 Unknown Ur Amphetamines Screen Presumptive negative 10/02/18 Unknown U Benzodiazepines Scrn Presumptive negative 10/02/18 Unknown Urine Cocaine Screen Presumptive negative 10/02/18 Unknown U Marijuana (THC) Screen Presumptive negative 10/02/18 Unknown Drugs of Abuse Note Disclamer 10/02/18 Unknown Active Medications - Current Medications Current Medications: Generic Name Dose Route Start Last Admin Trade Name Freq PRN Reason Stop Dose Admin Acetaminophen/Hydrocodone Bitart 1 each 10/02/18 18:24 [place] 5/325 PO Q4HR PRN Pain Albuterol 2.5 mg 10/02/18 18:25 Proventil IH Q3HRT PRN Shortness Of Breath Atorvastatin Calcium 20 mg 10/02/18 22:00 10/03/18 21:41 Lipitor PO 20 mg QHS BIBIANA Administration Carvedilol 12.5 mg 10/02/18 22:00 10/04/18 09:11 Coreg PO 12.5 mg BID BIBIANA Administration Famotidine 10 mg 10/02/18 22:00 10/04/18 09:11 Pepcid PO 10 mg BID BIBIANA Administration Furosemide 40 mg 10/03/18 06:00 10/04/18 05:43 Lasix IV Not Given BID@0600,1800 BIBIANA Ceftriaxone Sodium 1 gm in 50 mls @ 100 mls/hr 10/04/18 13:00 10/04/18 13:05 Rocephin/Ns 1 Gm/50 Ml IV 100 mls/hr Q24HR BIBIANA Administration Protocol Losartan Potassium 25 mg 10/03/18 10:00 10/04/18 09:11 Cozaar PO 25 mg DAILY BIBIANA Administration Sodium Chloride 10 ml 10/02/18 22:00 10/03/18 10:06 Sodium Chloride Flush Syringe 10 Ml IV 10 ml BID BIBIANA Administration Sodium Chloride 10 ml 10/02/18 18:25 Sodium Chloride Flush Syringe 10 Ml IV PRN PRN LINE FLUSH Spironolactone 25 mg 10/03/18 10:00 10/04/18 09:10 Aldactone PO 25 mg DAILY BIBIANA Administration
[2018-10-04] MEDS: SODIUM CHLORIDE FLUSH SYRINGE 10 ML IV SCH ×2 (20:51→21:22)
[2018-10-05 05:39] LABS: Hematocrit 31.2 % (35.5-45.6); Hemoglobin 10.6 gm/dl (11.8-15.2); Mean Corpuscular HGB Conc 34 % (32-34); Platelet Count 147 K/mm3 (140-440); Red Blood Count 2.48 M/mm3 (3.65-5.03)
[2018-10-05 05:56] LABS: Mean Corpuscular Volume 126 fl (84-94); Red Cell Distribution Width 27.7 % (13.2-15.2)
[2018-10-05 06:03] LABS: Albumin 2.9 g/dL (3.9-5); Calcium 8.9 mg/dL (8.4-10.2)
[2018-10-05] MEDS: LASIX IV SCH ×2 (06:26→18:08)
--- NOTE | 2018-10-05 10:23 | Consultation ---
History of Present Illness - Reason for Consult Consult date: 10/05/18 Reason for consult: Mental Health Evaluation Requesting physician: LULU VALDEZ - Chief Complaint Chief complaint: "Hello" - History of Present Psychiatric Illness 73 YO AA male who presented to the ER for an medical evaluation. Psychiatry was consulted because the patient maybe hallucinating. Also, theres a concern the patient may have dementia. Today the patient is calm and cooperative during the assessment. He stated that he was brought to the hospital because he was experiencing SOB. He also stated that he has "heart problems." He was asked about his mental health, he stated, "I am okay." He was able to state his and ID the current/past [place] President was asked. He recalled 1/3 numbers within 5 mins. He stated that he reside with his children. He could not elaborate about his actions per the chart before he was brought to the ER. He denies SI/HI's and AVH's. He denies erratic sleep and a poor appetite. He denies recreational drug use and alcohol consumption (etoh). Medications and Allergies Allergies Allergy/AdvReac Type Severity Reaction Status Date / Time No Known Allergies Allergy Verified 06/24/17 14:41 Home Medications Medication Instructions Recorded Confirmed Last Taken Type AtorvaSTATin [Lipitor] 20 mg PO QHS #30 tablet 07/10/18 10/02/18 07/27/18 Rx Carvedilol [Coreg] 12.5 mg PO BID #60 tablet 07/10/18 10/02/18 07/27/18 Rx Clopidogrel [Plavix] 75 mg PO DAILY #30 tablet 07/10/18 10/02/18 07/25/18 Rx Famotidine [Pepcid] 20 mg PO BID #60 tablet 07/10/18 10/02/18 07/27/18 Rx Furosemide [Lasix TAB] 40 mg PO QDAY #30 tablet 07/10/18 10/02/18 07/27/18 Rx Losartan [Cozaar] 25 mg PO DAILY #30 tablet 07/10/18 10/02/18 07/27/18 Rx Potassium Chloride [K-Dur] 10 meq PO QDAY #30 tablet 07/10/18 10/02/18 07/27/18 Rx Spironolactone [Aldactone] 25 mg PO DAILY #30 tablet 07/10/18 10/02/1807/27/19 Rx HYDROcodone/APAP 5-325 [[place] 1 each PO Q4HR PRN #20 tablet 07/28/18 10/02/18 Unknown Rx 5/325] Active Meds: Active Medications Acetaminophen/Hydrocodone Bitart ([place] 5/325) 1 each PO Q4HR PRN PRN Reason: Pain Albuterol (Proventil) 2.5 mg IH Q3HRT PRN PRN Reason: Shortness Of Breath Atorvastatin Calcium (Lipitor) 20 mg PO QHS [facility] Last Admin: 10/04/18 21:21 Dose: 20 mg Documented by: Carvedilol (Coreg) 12.5 mg PO BID [facility] Last Admin: 10/04/18 21:21 Dose: Not Given Documented by: Famotidine (Pepcid) 10 mg PO BID [facility] Last Admin: 10/04/18 21:21 Dose: 10 mg Documented by: Furosemide (Lasix) 40 mg IV BID@0600,1800 [facility] Last Admin: 10/05/18 06:26 Dose: 40 mg Documented by: Ceftriaxone Sodium (Rocephin/Ns 1 Gm/50 Ml) 1 gm in 50 mls @ 100 mls/hr IV Q24HR [facility]; Protocol Last Admin: 10/04/18 13:05 Dose: 100 mls/hr Documented by: Losartan Potassium (Cozaar) 25 mg PO DAILY [facility] Last Admin: 10/04/18 09:11 Dose: 25 mg Documented by: Sodium Chloride (Sodium Chloride Flush Syringe 10 Ml) 10 ml IV BID [facility] Last Admin: 10/04/18 21:22 Dose: 10 ml Documented by: Sodium Chloride (Sodium Chloride Flush Syringe 10 Ml) 10 ml IV PRN PRN PRN Reason: LINE FLUSH Spironolactone (Aldactone) 25 mg PO DAILY [facility] Last Admin: 10/04/18 09:10 Dose: 25 mg Documented by: Past psychiatric history - Past Medical History Past Medical History: COPD, stroke Past Surgical History: No surgical history - past Psychiatric treatment and history psychiatric treatment history: Denies a psy hx and fam psy hx. - Social History Social history: lives with family Mental Status Exam - Vital signs Last Vital Signs Temp 97.9 F 10/05/18 07:59 Pulse 84 10/05/18 07:59 Resp 18 04/23/19 07:59 BP 118/81 10/05/18 07:59 Pulse Ox 97 10/05/18 07:59 - Exam Narrative exam: MSE: Appearance: calm, cooperative Behavior: regular eye contact Speech: regular rate and tone Mood: "okay" Affect: congruent to mood Thought Process: circumstantial Thought Content: denies SI/HI's and AVH's Motor Activity: sitting up in the bed Cognition: A/O x 3 Insight: variable to fair Judgment: fair Results Result Diagrams: 10/07/18 05:09 10/07/18 05:09 Abnormal lab results 10/04/18 10/05/18 10/05/18 Range/Units 15:17 04:58 04:58 WBC 3.6 L (4.5-11.0) K/mm3 RBC 2.48 L (3.65-5.03) M/mm3 Hgb 10.6 L (11.8-15.2) gm/dl Hct 31.2 L (35.5-45.6) % MCV 126 H (84-94) fl MCH 43 H (28-32) pg RDW 27.7 H (13.2-15.2) % PT 21.7 H (12.2-14.9) Sec. INR 1.76 H (0.87-1.13) BUN 44 H (9-20) mg/dL Creatinine 1.6 H (0.8-1.5) mg/dL Total Bilirubin 1.60 H (0.1-1.2) mg/dL AST 77 H (5-40) units/L ALT 133 H (7-56) units/L Total Protein 5.9 L (6.3-8.2) g/dL Albumin 2.9 L (3.9-5) g/dL All other labs normal. Assessment and Plan Assessment and plan: Impression: Today the patient is calm and [id number] during the assessment. There's a concern that the patient may have Dementia. LF's are elevated. Medical: Acute Metabolic Encephalopathy per the hospitalist. Recommendation/Plan: Gather collateral information to help determine proper treatment if indicated. Dispo: Once collateral information is gathered proper dispo will be determined. Staffed with Dr Tu Patiño.
--- NOTE | 2018-10-05 11:11 | Progress Note ---
Assessment and Plan Assessment and plan: Assessment and plan: 73 YO Male with HTN, HLD, CVA, Systolic CHF(EF 15%), COPD, GERD, End Stage Liver Disease, Dementia, Debility presents to ED for evaluation. Pt is nonverbal and unable to provide history. Pt history taken from daughter. As per daughter, the patient has experienced decreased verbalization, decreased interaction with family, increased confusion, decreased oral intake, insomnia, worsening daytime somnolence, increased garbled speech with worsening symptoms over the past 1 week. Pt family became concerned today after several days of the aforementioned symptoms. EMS was notified, and upon arrival the patient was found to have Atrial Fib/Flutter and transported to [facility] ED. Pt seen and evaluated in ED and found to have Encephalopathy, CHF Decompensation, and Atrial fib/Flutter. Pt family also reports visual hallucinations 2 weeks ago with resulted in the patient calling the police. Pt was sleeping with a loaded gun at his bedside. Pt daughter reports worsening visual hallucinations. Pt gun was taken prior to transport to [facility]. Pt admitted to IMCU and initiated on Cardizem, as well as therapeutic anticoagulation. [id number] Score:5. Prior admission on 07/08/18 reviewed. --Acute Metabolic Encephalopathy: Supportive care, --Metabolic Acidosis; Gentle hydration and closely monitor --Pleural Effusion; possible thoracentesis tomorrow --Passive hepatic congestion/transaminitis; Closely monitor transaminases, consider GI if needed --Paroxysmal Atrial fib/flutter with underlying sick sinus syndrome rate Controlled, continue beta blockers, not a candidate for chronic ant icoagulation In view of dementia --Acute kidney injury; secondary to ATN Patient's renal function improving, continue gentle hydration Avoid nephrotoxins --Dilated Nonischemic cardiomyopathy; continue anti-failure medications Ef 15-20% by echo 06/2018 no ischemia by MPI 06/2018 --Hypertension; moderate control continue current antihypertensives and when necessary medications, --History of CVA; supportive care --History of COPD; oxygen, titrate O2 sats to more than 90% --Moderate malnutrition; nutrition supplements and supportive care --DVT prophylaxis Monitor the patient closely and adjust management as needed History Interval history: Patient seen and examined medical records reviewed No new events reported by the nursing Patient feels slightly better no new complaints Alert awake oriented Vital signs reviewed Hospitalist Physical - Constitutional Vitals: Temp Pulse Resp BP Pulse Ox 97.9 F 84 18 118/81 97 10/05/18 07:59 10/05/18 07:59 10/05/18 07:59 10/05/18 07:59 10/05/18 07:59 General appearance: Present: mild distress, well-nourished - EENT Eyes: Present: PERRL, EOM intact - Neck Neck: Present: supple, normal ROM - Respiratory Respiratory effort: normal Respiratory: bilateral: diminished, negative: rales, rhonchi, wheezing - Cardiovascular Rhythm: regular Heart Sounds: Present: S1 & S2 - Extremities Extremities: no ischemia, No edema - Abdominal General gastrointestinal: soft, non-tender, non-distended, normal bowel sounds - Integumentary Integumentary: Present: clear, warm - Psychiatric Psychiatric: appropriate mood/affect, cooperative - Neurologic Neurologic: CNII-XII intact, moves all extremities Results - Labs CBC & Chem 7: 10/05/18 04:58 10/05/18 04:58 Labs: Laboratory Last Values WBC 3.6 K/mm3 (4.5-11.0) L 10/05/18 04:58 RBC 2.48 M/mm3 (3.65-5.03) L 10/05/18 04:58 Hgb 10.6 gm/dl (11.8-15.2) L 10/05/18 04:58 Hct 31.2 % (35.5-45.6) L 10/05/18 04:58 MCV 126 fl (84-94) H 10/05/18 04:58 MCH 43 pg (28-32) H 10/05/18 04:58 MCHC 34 % (32-34) 10/05/18 04:58 RDW 27.7 % (13.2-15.2) H 10/05/18 04:58 Plt Count 147 K/mm3 (140-440) 10/05/18 04:58 Baso % (Auto) Superintendent Custodian Janitor 10/03/18 04:40 Add Manual Diff Complete 10/03/18 04:40 Total Counted 100 10/03/18 04:40 Seg Neuts % (Manual) 80.0 % (40.0-70.0) H 10/03/18 04:40 Band Neutrophils % 2.0 % 10/03/18 04:40 Lymphocytes % (Manual) 17.0 % (13.4-35.0) 10/03/18 04:40 Reactive Lymphs % (Man) 0 % 10/03/18 04:40 Monocytes % (Manual) 1.0 % (0.0-7.3) 10/03/18 04:40 Eosinophils % (Manual) 0 % (0.0-4.3) 10/03/18 04:40 Basophils % (Manual) 0 % (0.0-1.8) 10/03/18 04:40 Metamyelocytes % 0 % 10/03/18 04:40 Myelocytes % 0 % 10/03/18 04:40 Promyelocytes % 0 % 10/03/18 04:40 Blast Cells % 0 % 10/03/18 04:40 Nucleated RBC % 8.0 % (0.0-0.9) H 10/03/18 04:40 Seg Neutrophils # Man 3.6 K/mm3 (1.8-7.7) 10/03/18 04:40 Band Neutrophils # 0.1 K/mm3 10/03/18 04:40 Lymphocytes # (Manual) 0.8 K/mm3 (1.2-5.4) L 10/03/18 04:40 Abs React Lymphs (Man) 0.0 K/mm3 10/03/18 04:40 Monocytes # (Manual) 0.0 K/mm3 (0.0-0.8) 10/03/18 04:40 Eosinophils # (Manual) 0.0 K/mm3 (0.0-0.4) 10/03/18 04:40 Basophils # (Manual) 0.0 K/mm3 (0.0-0.1) 10/03/18 04:40 Metamyelocytes # 0.0 K/mm3 10/03/18 04:40 Myelocytes # 0.0 K/mm3 10/03/18 04:40 Promyelocytes # 0.0 K/mm3 10/03/18 04:40 Blast Cells # 0.0 K/mm3 10/03/18 04:40 WBC Morphology Not Reportable 10/03/18 04:40 Hypersegmented Neuts Not Reportable 10/03/18 04:40 Hyposegmented Neuts Not Reportable 10/03/18 04:40 Hypogranular Neuts Not Reportable 10/03/18 04:40 Smudge Cells Not Reportable 10/03/18 04:40 Toxic Granulation Not Reportable 10/03/18 04:40 Toxic Vacuolation Not Reportable 10/03/18 04:40 Dohle Bodies Not Reportable 10/03/18 04:40 Pelger-Huet Anomaly Not Reportable 10/03/18 04:40 Amina Rods Not Reportable 10/03/18 04:40 Platelet Estimate Appears normal 10/03/18 04:40 Clumped Platelets Not Reportable 10/03/18 04:40 Plt Clumps, EDTA Not Reportable 10/03/18 04:40 Large Platelets Few 10/03/18 04:40 Giant Platelets Not Reportable 10/03/18 04:40 Platelet Satelliting Not Reportable 10/03/18 04:40 Plt Morphology Comment Not Reportable 10/03/18 04:40 RBC Morphology Not Reportable 10/03/18 04:40 Dimorphic RBCs Not Reportable 10/03/18 04:40 Polychromasia Not Reportable 10/03/18 04:40 Hypochromasia Not Reportable 10/03/18 04:40 Poikilocytosis 1+ 10/03/18 04:40 Anisocytosis 3+ 10/03/18 04:40 Microcytosis Not Reportable 10/03/18 04:40 Macrocytosis 2+ 10/03/18 04:40 Spherocytes Not Reportable 10/03/18 04:40 Pappenheimer Bodies Not Reportable 10/03/18 04:40 Sickle Cells Not Reportable 10/03/18 04:40 Target Cells Not Reportable 10/03/18 04:40 Tear Drop Cells Not Reportable 10/03/18 04:40 Ovalocytes Not Reportable 10/03/18 04:40 Helmet Cells Not Reportable 10/03/18 04:40 [place] Gentry Bodies Not Reportable 10/03/18 04:40 Hodges Rings Not Reportable 10/03/18 04:40 Jose Cells Not Reportable 10/03/18 04:40 Bite Cells Not Reportable 10/03/18 04:40 Crenated Cell Not Reportable 10/03/18 04:40 Elliptocytes Not Reportable 10/03/18 04:40 Acanthocytes (Spur) Not Reportable 10/03/18 04:40 Rouleaux Not Reportable 10/03/18 04:40 Hemoglobin C Crystals Not Reportable 10/03/18 04:40 Schistocytes Not Reportable 10/03/18 04:40 Malaria parasites Not Reportable 10/03/18 04:40 Gordo Bodies Not Reportable 10/03/18 04:40 Hem Pathologist Commnt No 10/03/18 04:40 PT 21.7 Sec. (12.2-14.9) H 10/04/18 15:17 INR 1.76 (0.87-1.13) H 10/04/18 15:17 APTT 36.0 Sec. (24.2-36.6) 10/02/18 12:06 Sodium 142 mmol/L (137-145) 10/05/18 04:58 Potassium 4.8 mmol/L (3.6-5.0) 10/05/18 04:58 Chloride 106.9 mmol/L (98-107) 10/05/18 04:58 Carbon Dioxide 23 mmol/L (22-30) 10/05/18 04:58 Anion Gap 17 mmol/L 10/05/18 04:58 BUN 44 mg/dL (9-20) H 10/05/18 04:58 Creatinine 1.6 mg/dL (0.8-1.5) H 10/05/18 04:58 Estimated GFR 51 ml/min 10/05/18 04:58 BUN/Creatinine Ratio 28 % 10/05/18 04:58 Glucose 89 mg/dL (75-100) 10/05/18 04:58 POC Glucose 71 (70-105) 10/02/18 12:30 Lactic Acid 1.30 mmol/L (0.7-2.0) 10/03/18 08:22 Calcium 8.9 mg/dL (8.4-10.2) 10/05/18 04:58 Magnesium 2.20 mg/dL (1.7-2.3) 10/02/18 13:13 Total Bilirubin 1.60 mg/dL (0.1-1.2) H 10/05/18 04:58 Direct Bilirubin 1.7 mg/dL (0-0.2) H 10/03/18 04:40 Indirect Bilirubin 1.5 mg/dL 10/03/18 04:40 AST 77 units/L (5-40) H 10/05/18 04:58 ALT 133 units/L (7-56) H 10/05/18 04:58 Alkaline Phosphatase 64 units/L (35-129) 10/05/18 04:58 Ammonia 41.0 umol/L (25-60) 10/02/18 13:13 Total Creatine Kinase 69 units/L (55-170) 10/02/18 13:13 CK-MB (CK-2) 4.5 ng/mL (0.0-4.0) H 10/02/18 13:13 CK-MB (CK-2) Rel Index 6.5 (0-4) H 10/02/18 13:13 Troponin T 0.031 ng/mL (0.00-0.029) H 10/02/18 13:13 NT-Pro-B Natriuret Pep 73206 pg/mL (0-900) H 10/02/18 13:13 Total Protein 5.9 g/dL (6.3-8.2) L 10/05/18 04:58 Albumin 2.9 g/dL (3.9-5) L 10/05/18 04:58 Albumin/Globulin Ratio 1.0 % 10/05/18 04:58 Triglycerides 52 mg/dL (2-149) 10/02/18 13:13 Cholesterol 111 mg/dL (50-199) 10/02/18 13:13 LDL Cholesterol Direct 77 mg/dL (50-130) 10/02/18 13:13 HDL Cholesterol 40 mg/dL (40-59) 10/02/18 13:13 Cholesterol/HDL Ratio 2.77 % 10/02/18 13:13 TSH 5.690 mlU/mL (0.270-4.200) H 10/02/18 13:13 Free T4 1.30 ng/dL (0.76-1.46) 10/02/18 13:13 Urine Color Nel (Yellow) 10/02/18 Unknown Urine Turbidity Clear (Clear) 10/02/18 Unknown Urine pH 5.0 (5.0-7.0) 10/02/18 Unknown Ur Specific [place] 1.035 (1.003-1.030) H 10/02/18 Unknown Urine Protein 30 mg/dl mg/dL (Negative) 10/02/18 Unknown Urine Glucose (UA) Neg mg/dL (Negative) 10/02/18 Unknown Urine Ketones Neg mg/dL (Negative) 10/02/18 Unknown Urine Blood Neg (Negative) 10/02/18 Unknown Urine Nitrite Neg (Negative) 10/02/18 Unknown Urine Bilirubin Neg (Negative) 10/02/18 Unknown Urine Urobilinogen 4.0 mg/dL (<2.0) 10/02/18 Unknown Ur Leukocyte Esterase Neg (Negative) 10/02/18 Unknown Urine WBC (Auto) 2.0 /HPF (0.0-6.0) 10/02/18 Unknown Urine RBC (Auto) 1.0 /HPF (0.0-6.0) 10/02/18 Unknown U Epithel Cells (Auto) 1.0 /HPF (0-13.0) 10/02/18 Unknown Urine Bacteria (Auto) 1+ /HPF (Negative) 10/02/18 Unknown Hyaline Casts 6 /LPF 10/02/18 Unknown Urine Mucus 1+ /HPF 10/02/18 Unknown Urine Opiates Screen Presumptive negative 10/02/18 Unknown Urine Methadone Screen Presumptive negative 10/02/18 Unknown Ur Barbiturates Screen Presumptive negative 10/02/18 Unknown Ur Phencyclidine Scrn Presumptive negative 10/02/18 Unknown Ur Amphetamines Screen Presumptive negative 10/02/18 Unknown U Benzodiazepines Scrn Presumptive negative 10/02/18 Unknown Urine Cocaine Screen Presumptive negative 10/02/18 Unknown U Marijuana (THC) Screen Presumptive negative 10/02/18 Unknown Drugs of Abuse Note Disclamer 10/02/18 Unknown Active Medications - Current Medications Current Medications: Generic Name Dose Route Start Last Admin Trade Name Freq PRN Reason Stop Dose Admin Acetaminophen/Hydrocodone Bitart 1 each 10/02/18 18:24 [place] 5/325 PO Q4HR PRN Pain Albuterol 2.5 mg 10/02/18 18:25 Proventil IH Q3HRT PRN Shortness Of Breath Atorvastatin Calcium 20 mg 10/02/18 22:00 10/04/18 21:21 Lipitor PO 20 mg QHS BIBIANA Administration Carvedilol 12.5 mg 10/02/18 22:00 10/04/18 21:21 Coreg PO Not Given BID BIBIANA Famotidine 10 mg 10/02/18 22:00 10/04/18 21:21 Pepcid PO 10 mg BID BIBIANA Administration Furosemide 40 mg 10/03/18 06:00 10/05/18 06:26 Lasix IV 40 mg BID@0600,1800 BIBIANA Administration Ceftriaxone Sodium 1 gm in 50 mls @ 100 mls/hr 10/04/18 13:00 10/04/18 13:05 Rocephin/Ns 1 Gm/50 Ml IV 100 mls/hr Q24HR BIBIANA Administration Protocol Losartan Potassium 25 mg 10/03/18 10:00 10/04/18 09:11 Cozaar PO 25 mg DAILY BIBIANA Administration Sodium Chloride 10 ml 10/02/18 22:00 10/04/18 21:22 Sodium Chloride Flush Syringe 10 Ml IV 10 ml BID BIBIANA Administration Sodium Chloride 10 ml 10/02/18 18:25 Sodium Chloride Flush Syringe 10 Ml IV PRN PRN LINE FLUSH Spironolactone 25 mg 10/03/18 10:00 10/04/18 09:10 Aldactone PO 25 mg DAILY BIBIANA Administration
[2018-10-05] MEDS: COREG PO SCH ×2 (11:29→21:35)
[2018-10-05] MEDS: PEPCID PO SCH ×2 (11:30→21:34)
[2018-10-05] MEDS: COZAAR PO SCH (11:30)
[2018-10-05] MEDS: ROCEPHIN/NS 1 GM/50 ML 1 GM/50 ML BAG IV SCH (11:30)
[2018-10-05] MEDS: ALDACTONE PO SCH (11:30)
[2018-10-05] MEDS: SODIUM CHLORIDE FLUSH SYRINGE 10 ML IV SCH ×2 (11:31→21:35)
--- NOTE | 2018-10-05 11:49 | Magnetic Resonance Report ---
MRI OF THE BRAIN WITHOUT CONTRAST: HISTORY: Encephalopathy PROCEDURE: Multiplanar, multisequence MR imaging of the brain without IV contrast was performed. FINDINGS: Compared to the CT head without contrast dated 10/02/18. MRI demonstrates mild diffuse cortical volume loss and moderate chronic white matter changes bilaterally. Otherwise, the remaining brain parenchyma signal intensity and its navarro white interface are within normal limits on all sequences. No evidence for acute ischemia, hemorrhage or mass. No chronic infarct or extra-axial fluid collection. The midline structures are central. The basal cisterns are patent. Normal ventricular size. The orbital cavities and sella turcica demonstrate no abnormality. The visualized paranasal sinuses and mastoid air cells are well aerated. IMPRESSION: Volume loss. Nonspecific chronic white matter changes. No acute intracranial process is appreciated.
--- NOTE | 2018-10-05 12:09 | Progress Note ---
Assessment and Plan Change in mental status Paroxysmal Atrial fib/flutter -new onset underlying sick sinus syndrome Dilated Nonischemic cardiomyopathy Ef 15-20% by echo 06/2018 no ischemia by MPI 06/2018 Hypertension History of CVA History of COPD PVD s/p BKA Dementia Recommendations: Continue medical therapy for chronic systolic heart failure. Optimal rate control for atrial fibrillation with beta blockers. Continue telemetry monitoring. Due to his end-stage liver disease patient is considered high risk for oral anticoagulation. Subjective Date of service: 10/05/18 Interval history: Patient is resting in bed comfortably. Objective Vital Signs Temp Pulse Pulse Resp BP Pulse Ox 10/05/18 10:00 84 10/05/18 07:59 97.9 F 84 18 118/81 97 10/05/18 06:22 97.8 F 78 22 112/73 100 10/05/18 00:05 97.4 F L 74 20 94/65 93 10/04/18 22:40 73 18 93 10/04/18 21:21 73 94/67 10/04/18 20:48 97.3 F L 73 22 94/67 93 10/04/18 19:22 67 10/04/18 17:50 97.7 F 50 L 18 95/56 93 10/04/18 12:34 97.6 F 50 L 16 100/68 94 - Physical Examination General: No Apparent Distress HEENT: Positive: PERRL Cardiac: Positive: irregularly irregular - Labs and Meds Cardiac Enzymes 10/05/18 Range/Units 04:58 AST 77 H (5-40) units/L Coagulation 10/04/18 Range/Units 15:17 PT 21.7 H (12.2-14.9) Sec. INR 1.76 H (0.87-1.13) CBC 10/05/18 Range/Units 04:58 WBC 3.6 L (4.5-11.0) K/mm3 RBC 2.48 L (3.65-5.03) M/mm3 Hgb 10.6 L (11.8-15.2) gm/dl Hct 31.2 L (35.5-45.6) % Plt Count 147 (140-440) K/mm3 Comprehensive Metabolic Panel 10/05/18 Range/Units 04:58 Sodium 142 (137-145) mmol/L Potassium 4.8 (3.6-5.0) mmol/L Chloride 106.9 (98-107) mmol/L Carbon Dioxide 23 (22-30) mmol/L BUN 44 H (9-20) mg/dL Creatinine 1.6 H (0.8-1.5) mg/dL Glucose 89 (75-100) mg/dL Calcium 8.9 (8.4-10.2) mg/dL AST 77 H (5-40) units/L ALT 133 H (7-56) units/L Alkaline Phosphatase 64 (35-129) units/L Total Protein 5.9 L (6.3-8.2) g/dL Albumin 2.9 L (3.9-5) g/dL
--- NOTE | 2018-10-05 13:34 | Ultrasound Report ---
ULTRASOUND ABDOMEN COMPLETE: TECHNIQUE: Transabdominal ultrasound with color Doppler interrogation. HISTORY: Ascites. COMPARISON: none. FINDINGS: LIVER: The liver parenchyma is mildly echogenic suggesting mild fatty infiltration. No evidence for focal liver mass, enlargement or surface nodularity. BILIARY SYSTEM: Normal. PANCREAS: Normal. SPLEEN: Normal. KIDNEYS: Both kidneys are mildly atrophic with increased parenchymal echotexture. The right kidney measures 8.4 cm. The left kidney measures 7.9 cm. No focal renal lesion or hydronephrosis. AORTA/IVC: Normal. ASCITES: Medium ascites is demonstrated. A moderate right pleural effusion is also identified. IMPRESSION: Mild fatty infiltration of the liver. Medium ascites. Moderate right pleural effusion.
--- NOTE | 2018-10-05 15:22 | Magnetic Resonance Report ---
PROCEDURE: MR MRA HEAD WO CON TECHNIQUE: MRA examination of the head without IV contrast HISTORY: encephalopathy COMPARISONS: Head CT 10/02/2018 FINDINGS: Note: Assessment of carotid artery stenosis is based on measurement of the distal internal carotid a rtery diameter as the denominator for stenosis calculations and the [place] Symptomatic Caroti d Endarterectomy Trial (NASCET) stenosis criteria. Intracranial vessels: Carotid siphon: Normal. Anterior cerebral: Normal. Middle cerebral: Normal. Posterior cerebral: Normal. Vertebral: Normal with left dominance Basilar: Normal. Occlusion: None. Vascular malformations: None. Aneurysm: None. IMPRESSION: No MRA evidence of brain vascular pathology This document is electronically signed by Aaron Wang MD., October 05 2018 03:20:07 PM ET
[2018-10-05] MEDS: HEPARIN SUB-Q SCH (21:34)
[2018-10-06] MEDS: LASIX IV SCH ×2 (06:10→19:00)
[2018-10-06 06:28] LABS: Calcium 8.7 mg/dL (8.4-10.2)
[2018-10-06] MEDS: COZAAR PO SCH (10:44)
[2018-10-06] MEDS: PEPCID PO SCH ×2 (10:45→22:13)
[2018-10-06] MEDS: ROCEPHIN/NS 1 GM/50 ML 1 GM/50 ML BAG IV SCH (10:46)
[2018-10-06] MEDS: ALDACTONE PO SCH (10:46)
[2018-10-06] MEDS: COREG PO SCH ×2 (10:46→22:13)
[2018-10-06] MEDS: SODIUM CHLORIDE FLUSH SYRINGE 10 ML IV SCH ×2 (10:47→22:15)
[2018-10-06] MEDS: HEPARIN SUB-Q SCH ×2 (10:47→22:13)
[2018-10-06 11:16] LABS: INR 1.4 (0.87-1.13)
--- NOTE | 2018-10-06 11:21 | Progress Note ---
Assessment and Plan Assessment and plan: --Acute Metabolic Encephalopathy: Supportive care, --Metabolic Acidosis; Gentle hydration and closely monitor --Pleural Effusion; possible thoracentesis tomorrow --Passive hepatic congestion/transaminitis; Closely monitor transaminases, consider GI if needed --Paroxysmal Atrial fib/flutter with underlying sick sinus syndrome rate Controlled, continue beta blockers, not a candidate for chronic antic oagulation In view of dementia --Acute kidney injury; secondary to ATN Patient's renal function improving, continue gentle hydration Avoid nephrotoxins --Dilated Nonischemic cardiomyopathy; continue anti-failure medications Ef 15-20% by echo 06/2018 no ischemia by MPI 06/2018 --Hypertension; moderate control continue current antihypertensives and when necessary medications, --History of CVA; supportive care --History of COPD; oxygen, titrate O2 sats to more than 90% --Moderate malnutrition; nutrition supplements and supportive care --DVT prophylaxis Monitor the patient closely and adjust management as needed History Interval history: Patient seen and examined and medical records reviewed No new events reported by the nursing staff Thoracentesis today Vital signs noted Hospitalist Physical - Constitutional Vitals: Temp Pulse Resp BP Pulse Ox 97.9 F 82 18 119/82 98 10/06/18 07:53 10/06/18 10:46 10/06/18 07:53 10/06/18 10:46 10/06/18 07:53 General appearance: Present: no acute distress, well-nourished - EENT Eyes: Present: PERRL, EOM intact - Neck Neck: Present: supple, normal ROM - Respiratory Respiratory effort: normal Respiratory: bilateral: diminished, rales, negative: rhonchi, wheezing - Cardiovascular Rhythm: regular Heart Sounds: Present: S1 & S2 - Extremities Extremities: no ischemia, No edema - Abdominal General gastrointestinal: soft, non-tender, non-distended, normal bowel sounds - Integumentary Integumentary: Present: clear, warm - Psychiatric Psychiatric: appropriate mood/affect, cooperative - Neurologic Neurologic: CNII-XII intact, moves all extremities Results - Labs CBC & Chem 7: 10/05/18 04:58 10/06/18 05:20 Labs: Laboratory Last Values WBC 3.6 K/mm3 (4.5-11.0) L 10/05/18 04:58 RBC 2.48 M/mm3 (3.65-5.03) L 10/05/18 04:58 Hgb 10.6 gm/dl (11.8-15.2) L 10/05/18 04:58 Hct 31.2 % (35.5-45.6) L 10/05/18 04:58 MCV 126 fl (84-94) H 10/05/18 04:58 MCH 43 pg (28-32) H 10/05/18 04:58 MCHC 34 % (32-34) 10/05/18 04:58 RDW 27.7 % (13.2-15.2) H 10/05/18 04:58 Plt Count 147 K/mm3 (140-440) 10/05/18 04:58 Baso % (Auto) [employer] 10/03/18 04:40 Add Manual Diff Complete 10/03/18 04:40 Total Counted 100 10/03/18 04:40 Seg Neuts % (Manual) 80.0 % (40.0-70.0) H 10/03/18 04:40 Band Neutrophils % 2.0 % 10/03/18 04:40 Lymphocytes % (Manual) 17.0 % (13.4-35.0) 10/03/18 04:40 Reactive Lymphs % (Man) 0 % 10/03/18 04:40 Monocytes % (Manual) 1.0 % (0.0-7.3) 10/03/18 04:40 Eosinophils % (Manual) 0 % (0.0-4.3) 10/03/18 04:40 Basophils % (Manual) 0 % (0.0-1.8) 10/03/18 04:40 Metamyelocytes % 0 % 10/03/18 04:40 Myelocytes % 0 % 10/03/18 04:40 Promyelocytes % 0 % 10/03/18 04:40 Blast Cells % 0 % 10/03/18 04:40 Nucleated RBC % 8.0 % (0.0-0.9) H 10/03/18 04:40 Seg Neutrophils # Man 3.6 K/mm3 (1.8-7.7) 10/03/18 04:40 Band Neutrophils # 0.1 K/mm3 10/03/18 04:40 Lymphocytes # (Manual) 0.8 K/mm3 (1.2-5.4) L 10/03/18 04:40 Abs React Lymphs (Man) 0.0 K/mm3 10/03/18 04:40 Monocytes # (Manual) 0.0 K/mm3 (0.0-0.8) 10/03/18 04:40 Eosinophils # (Manual) 0.0 K/mm3 (0.0-0.4) 10/03/18 04:40 Basophils # (Manual) 0.0 K/mm3 (0.0-0.1) 10/03/18 04:40 Metamyelocytes # 0.0 K/mm3 10/03/18 04:40 Myelocytes # 0.0 K/mm3 10/03/18 04:40 Promyelocytes # 0.0 K/mm3 10/03/18 04:40 Blast Cells # 0.0 K/mm3 10/03/18 04:40 WBC Morphology Not Reportable 10/03/18 04:40 Hypersegmented Neuts Not Reportable 10/03/18 04:40 Hyposegmented Neuts Not Reportable 10/03/18 04:40 Hypogranular Neuts Not Reportable 10/03/18 04:40 Smudge Cells Not Reportable 10/03/18 04:40 Toxic Granulation Not Reportable 10/03/18 04:40 Toxic Vacuolation Not Reportable 10/03/18 04:40 Dohle Bodies Not Reportable 10/03/18 04:40 Pelger-Huet Anomaly Not Reportable 10/03/18 04:40 Amina Rods Not Reportable 10/03/18 04:40 Platelet Estimate Appears normal 10/03/18 04:40 Clumped Platelets Not Reportable 10/03/18 04:40 Plt Clumps, EDTA Not Reportable 10/03/18 04:40 Large Platelets Few 10/03/18 04:40 Giant Platelets Not Reportable 10/03/18 04:40 Platelet Satelliting Not Reportable 10/03/18 04:40 Plt Morphology Comment Not Reportable 10/03/18 04:40 RBC Morphology Not Reportable 10/03/18 04:40 Dimorphic RBCs Not Reportable 10/03/18 04:40 Polychromasia Not Reportable 10/03/18 04:40 Hypochromasia Not Reportable 10/03/18 04:40 Poikilocytosis 1+ 10/03/18 04:40 Anisocytosis 3+ 10/03/18 04:40 Microcytosis Not Reportable 10/03/18 04:40 Macrocytosis 2+ 10/03/18 04:40 Spherocytes Not Reportable 10/03/18 04:40 Pappenheimer Bodies Not Reportable 10/03/18 04:40 Sickle Cells Not Reportable 10/03/18 04:40 Target Cells Not Reportable 10/03/18 04:40 Tear Drop Cells Not Reportable 10/03/18 04:40 Ovalocytes Not Reportable 10/03/18 04:40 Helmet Cells Not Reportable 10/03/18 04:40 [place] Bodies Not Reportable 10/03/18 04:40 [place] Rings Not Reportable 10/03/18 04:40 [place] Cells Not Reportable 10/03/18 04:40 Bite Cells Not Reportable 10/03/18 04:40 Crenated Cell Not Reportable 10/03/18 04:40 Elliptocytes Not Reportable 10/03/18 04:40 Acanthocytes (Spur) Not Reportable 10/03/18 04:40 Rouleaux Not Reportable 10/03/18 04:40 Hemoglobin C Crystals Not Reportable 10/03/18 04:40 Schistocytes Not Reportable 10/03/18 04:40 Malaria parasites Not Reportable 10/03/18 04:40 [place] Bodies Not Reportable 10/03/18 04:40 Hem Pathologist Commnt No 10/03/18 04:40 PT 18.1 Sec. (12.2-14.9) H 10/06/18 10:40 INR 1.40 (0.87-1.13) H 10/06/18 10:40 APTT 36.0 Sec. (24.2-36.6) 10/02/18 12:06 Sodium 141 mmol/L (137-145) 10/06/18 05:20 Potassium 4.6 mmol/L (3.6-5.0) 10/06/18 05:20 Chloride 105.8 mmol/L (98-107) 10/06/18 05:20 Carbon Dioxide 24 mmol/L (22-30) 10/06/18 05:20 Anion Gap 16 mmol/L 10/06/18 05:20 BUN 45 mg/dL (9-20) H 10/06/18 05:20 Creatinine 1.7 mg/dL (0.8-1.5) H 10/06/18 05:20 Estimated GFR 48 ml/min 10/06/18 05:20 BUN/Creatinine Ratio 26 % 10/06/18 05:20 Glucose 83 mg/dL (75-100) 10/06/18 05:20 POC Glucose 71 (70-105) 10/02/18 12:30 Lactic Acid 1.30 mmol/L (0.7-2.0) 10/03/18 08:22 Calcium 8.7 mg/dL (8.4-10.2) 10/06/18 05:20 Magnesium 2.20 mg/dL (1.7-2.3) 10/02/18 13:13 Total Bilirubin 1.60 mg/dL (0.1-1.2) H 10/05/18 04:58 Direct Bilirubin 1.7 mg/dL (0-0.2) H 10/03/18 04:40 Indirect Bilirubin 1.5 mg/dL 10/03/18 04:40 AST 77 units/L (5-40) H 10/05/18 04:58 ALT 133 units/L (7-56) H 10/05/18 04:58 Alkaline Phosphatase 64 units/L (35-129) 10/05/18 04:58 Ammonia 41.0 umol/L (25-60) 10/02/18 13:13 Total Creatine Kinase 69 units/L (55-170) 10/02/18 13:13 CK-MB (CK-2) 4.5 ng/mL (0.0-4.0) H 10/02/18 13:13 CK-MB (CK-2) Rel Index 6.5 (0-4) H 10/02/18 13:13 Troponin T 0.031 ng/mL (0.00-0.029) H 10/02/18 13:13 NT-Pro-B Natriuret Pep 68090 pg/mL (0-900) H 10/02/18 13:13 Total Protein 5.9 g/dL (6.3-8.2) L 10/05/18 04:58 Albumin 2.9 g/dL (3.9-5) L 10/05/18 04:58 Albumin/Globulin Ratio 1.0 % 10/05/18 04:58 Triglycerides 52 mg/dL (2-149) 10/02/18 13:13 Cholesterol 111 mg/dL (50-199) 10/02/18 13:13 LDL Cholesterol Direct 77 mg/dL (50-130) 10/02/18 13:13 HDL Cholesterol 40 mg/dL (40-59) 10/02/18 13:13 Cholesterol/HDL Ratio 2.77 % 10/02/18 13:13 TSH 5.690 mlU/mL (0.270-4.200) H 10/02/18 13:13 Free T4 1.30 ng/dL (0.76-1.46) 10/02/18 13:13 Urine Color Nel (Yellow) 10/02/18 Unknown Urine Turbidity Clear (Clear) 10/02/18 Unknown Urine pH 5.0 (5.0-7.0) 10/02/18 Unknown Ur Specific [place] 1.035 (1.003-1.030) H 10/02/18 Unknown Urine Protein 30 mg/dl mg/dL (Negative) 10/02/18 Unknown Urine Glucose (UA) Neg mg/dL (Negative) 10/02/18 Unknown Urine Ketones Neg mg/dL (Negative) 10/02/18 Unknown Urine Blood Neg (Negative) 10/02/18 Unknown Urine Nitrite Neg (Negative) 10/02/18 Unknown Urine Bilirubin Neg (Negative) 10/02/18 Unknown Urine Urobilinogen 4.0 mg/dL (<2.0) 10/02/18 Unknown Ur Leukocyte Esterase Neg (Negative) 10/02/18 Unknown Urine WBC (Auto) 2.0 /HPF (0.0-6.0) 10/02/18 Unknown Urine RBC (Auto) 1.0 /HPF (0.0-6.0) 10/02/18 Unknown U Epithel Cells (Auto) 1.0 /HPF (0-13.0) 10/02/18 Unknown Urine Bacteria (Auto) 1+ /HPF (Negative) 10/02/18 Unknown Hyaline Casts 6 /LPF 10/02/18 Unknown Urine Mucus 1+ /HPF 10/02/18 Unknown Urine Opiates Screen Presumptive negative 10/02/18 Unknown Urine Methadone Screen Presumptive negative 10/02/18 Unknown Ur Barbiturates Screen Presumptive negative 10/02/18 Unknown Ur Phencyclidine Scrn Presumptive negative 10/02/18 Unknown Ur Amphetamines Screen Presumptive negative 10/02/18 Unknown U Benzodiazepines Scrn Presumptive negative 10/02/18 Unknown Urine Cocaine Screen Presumptive negative 10/02/18 Unknown U Marijuana (THC) Screen Presumptive negative 10/02/18 Unknown Drugs of Abuse Note Disclamer 10/02/18 Unknown Active Medications - Current Medications Current Medications: Generic Name Dose Route Start Last Admin Trade Name Freq PRN Reason Stop Dose Admin Acetaminophen/Hydrocodone Bitart 1 each 10/02/18 18:24 10/05/18 13:00 [place] 5/325 PO 1 each Q4HR PRN Administration Pain Albuterol 2.5 mg 10/02/18 18:25 Proventil IH Q3HRT PRN Shortness Of Breath Atorvastatin Calcium 20 mg 10/02/18 22:00 10/05/18 21:34 Lipitor PO 20 mg QHS BIBIANA Administration Carvedilol 12.5 mg 10/02/18 22:00 10/06/18 10:46 Coreg PO 12.5 mg BID BIBIANA Administration Famotidine 10 mg 10/02/18 22:00 10/06/18 10:45 Pepcid PO 10 mg BID BIBIANA Administration Furosemide 40 mg 10/03/18 06:00 10/06/18 06:10 Lasix IV 40 mg BID@0600,1800 BIBIANA Administration Heparin Sodium (Porcine) 5,000 unit 10/05/18 22:00 10/06/18 10:47 Heparin SUB-Q Not Given Q12HR BIBIANA Ceftriaxone Sodium 1 gm in 50 mls @ 100 mls/hr 10/04/18 13:00 10/06/18 10:46 Rocephin/Ns 1 Gm/50 Ml IV 100 mls/hr Q24HR BIBIANA Administration Protocol Losartan Potassium 25 mg 10/03/18 10:00 10/06/18 10:44 Cozaar PO 25 mg DAILY BIBIANA Administration Sodium Chloride 10 ml 10/02/18 22:00 10/06/18 10:47 Sodium Chloride Flush Syringe 10 Ml IV 10 ml BID BIBIANA Administration Sodium Chloride 10 ml 10/02/18 18:25 Sodium Chloride Flush Syringe 10 Ml IV PRN PRN LINE FLUSH Spironolactone 25 mg 10/03/18 10:00 10/06/18 10:46 Aldactone PO 25 mg DAILY BIBIANA Administration
--- NOTE | 2018-10-06 13:04 | Progress Note ---
Subjective - Reason for Consult Consult date: 10/06/18 Reason for consult: Psychiatric Follow-up Evaluation - Chief Complaint Chief complaint: Patient is a 73 year old male who presented to the ER for an medical evaluation. Psychiatry was consulted because the patient maybe hallucinating. Also, theres a concern the patient may have dementia. Today the patient is not in the room. He is downstairs in a procedure, thoracentesis. Mental Status Exam - Vital signs Last Vital Signs Temp 97.9 F 10/06/18 07:53 Pulse 82 10/06/18 10:46 Resp 18 10/06/18 07:53 BP 119/82 10/06/18 10:46 Pulse Ox 98 10/06/18 07:53 - Exam Narrative exam: Unable to assess. Patient is in a procedure, thoracentesis. Assessment and Plan Impression: Unable to Assess. Patient is in a procedure, thoracentesis. There's a concern that the patient may have Dementia. LF's are elevated. Medical: Acute Metabolic Encephalopathy per the hospitalist. Recommendation/Plan: Gather collateral information to help determine proper treatment if indicated. Disposition: Once collateral information is gathered proper dispo will be determined. Will staff with Dr. Tu Patiño.
--- NOTE | 2018-10-06 15:41 | Procedure Note ---
Date of procedure: 10/06/18 Pre-op diagnosis: right pleural effusion Post-op diagnosis: other (right hemothorax) Procedure: US right thoracentesis Findings: moderate pleural fluid Anesthesia: local Surgeon: LAURENCE KIRKLAND Estimated blood loss: none Pathology: list (120cc) Specimen disposition: to lab Condition: stable Disposition: floor
--- NOTE | 2018-10-06 18:02 | XRay Report ---
PROCEDURE: XR CHEST 1V AP TECHNIQUE: Chest radiograph , single frontal view. HISTORY: sob recent right thoracentesis COMPARISONS: CXR 10/02/2018 . FINDINGS: Heart: Normal. Mediastinum/Vessels: Normal. Lungs/Pleural space: A small left pleural effusion is noted. No pneumothorax is noted. Bony thorax: No acute osseous abnormality. Life support devices: None. IMPRESSION: Small left pleural effusion. No pneumothorax This document is electronically signed by Pearl Godfrey MD., October 06 2018 06:00:54 PM ET
[2018-10-06 18:17] LABS: Total Cells Counted 100 /mm3
[2018-10-07 05:51] LABS: Hematocrit 29.3 % (35.5-45.6); Mean Corpuscular HGB Conc 34 % (32-34); Platelet Count 136 K/mm3 (140-440); Red Blood Count 2.33 M/mm3 (3.65-5.03)
[2018-10-07 06:16] LABS: Calcium 8.4 mg/dL (8.4-10.2)
[2018-10-07 06:26] LABS: Mean Corpuscular Volume 126 fl (84-94)
[2018-10-07] MEDS: LASIX IV SCH ×2 (06:50→18:32)
[2018-10-07 08:31] LABS: Anisocytosis 2+; Basophils % (Manual) 0 % (0.0-1.8); Total Cells Counted 100
[2018-10-07 08:32] LABS: Large Platelets Few; Macrocytosis 3+; Platelet Estimate Consistent w Auto; Poikilocytosis 1+; Target Cells Few
--- NOTE | 2018-10-07 09:25 | Progress Note ---
Assessment and Plan Assessment and plan: --Rt Pleural Effusion;s/p thoracentesis, 600 mL pleural fluid removed Follow-up Pl fluid analysis --Acute Metabolic Encephalopathy: Acute psychosis patient has some hallucinations, Psych following --Metabolic Acidosis; Gentle hydration and closely monitor --Paroxysmal Atrial fib/flutter with underlying sick sinus syndrome rate Controlled, continue beta blockers, not a candidate for chronic anticoa gulation In view of dementia --Dilated Nonischemic cardiomyopathy; continue anti-failure medications Ef 15-20% by echo 06/2018 no ischemia by MPI 06/2018 --Passive hepatic congestion/transaminitis; transaminases trending down, --Acute on chronic kidney disease III; secondary to ATN continue gentle hydration Avoid nephrotoxins --Hypertension; moderate control continue current antihypertensives and when necessary medications, --History of CVA; supportive care --History of COPD; oxygen, titrate O2 sats to more than 90% --Moderate malnutrition; nutrition supplements and supportive care --DVT prophylaxis Monitor the patient closely and adjust management as needed Disposition: SNF placement when medically stable; History Interval history: Patient seen and examined medical records reviewed Patient feels better today Status post right thoracentesis, labetalol 600 mL fluid Patient has no new complaints Vital signs noted Hospitalist Physical - Constitutional Vitals: Temp Pulse Resp BP Pulse Ox 97.6 F 93 H 18 91/58 91 10/07/18 04:00 10/07/18 04:00 10/07/18 04:00 10/07/18 04:00 10/07/18 04:00 General appearance: Present: no acute distress, well-nourished - EENT Eyes: Present: PERRL, EOM intact - Neck Neck: Present: supple, normal ROM - Respiratory Respiratory effort: normal Respiratory: bilateral: diminished, negative: rales, rhonchi, wheezing - Cardiovascular Rhythm: regular Heart Sounds: Present: S1 & S2 - Extremities Extremities: no ischemia, No edema, abnormal (right BKA) - Abdominal General gastrointestinal: soft, non-tender, non-distended - Integumentary Integumentary: Present: clear, warm - Psychiatric Psychiatric: appropriate mood/affect, cooperative - Neurologic Neurologic: moves all extremities Results - Labs CBC & Chem 7: 10/07/18 05:09 10/07/18 05:09 Labs: Laboratory Last Values WBC 3.6 K/mm3 (4.5-11.0) L 10/07/18 05:09 RBC 2.33 M/mm3 (3.65-5.03) L 10/07/18 05:09 Hgb 10.0 gm/dl (11.8-15.2) L 10/07/18 05:09 Hct 29.3 % (35.5-45.6) L 10/07/18 05:09 MCV 126 fl (84-94) H 10/07/18 05:09 MCH 43 pg (28-32) H 10/07/18 05:09 MCHC 34 % (32-34) 10/07/18 05:09 RDW 26.0 % (13.2-15.2) H 10/07/18 05:09 Plt Count 136 K/mm3 (140-440) L 10/07/18 05:09 Baso % (Auto) [employer] Specialist 10/03/18 04:40 Add Manual Diff Complete 10/07/18 05:09 Total Counted 100 10/07/18 05:09 Seg Neuts % (Manual) 74.0 % (40.0-70.0) H 10/07/18 05:09 Band Neutrophils % 0 % 10/07/18 05:09 Lymphocytes % (Manual) 16.0 % (13.4-35.0) 10/07/18 05:09 Reactive Lymphs % (Man) 0 % 10/07/18 05:09 Monocytes % (Manual) 8.0 % (0.0-7.3) H 10/07/18 05:09 Eosinophils % (Manual) 2.0 % (0.0-4.3) 10/07/18 05:09 Basophils % (Manual) 0 % (0.0-1.8) 10/07/18 05:09 Metamyelocytes % 0 % 10/07/18 05:09 Myelocytes % 0 % 10/07/18 05:09 Promyelocytes % 0 % 10/07/18 05:09 Blast Cells % 0 % 10/07/18 05:09 Nucleated RBC % 5.0 % (0.0-0.9) H 10/07/18 05:09 Seg Neutrophils # Man 2.7 K/mm3 (1.8-7.7) 10/07/18 05:09 Band Neutrophils # 0.0 K/mm3 10/07/18 05:09 Lymphocytes # (Manual) 0.6 K/mm3 (1.2-5.4) L 10/07/18 05:09 Abs React Lymphs (Man) 0.0 K/mm3 10/07/18 05:09 Monocytes # (Manual) 0.3 K/mm3 (0.0-0.8) 10/07/18 05:09 Eosinophils # (Manual) 0.1 K/mm3 (0.0-0.4) 10/07/18 05:09 Basophils # (Manual) 0.0 K/mm3 (0.0-0.1) 10/07/18 05:09 Metamyelocytes # 0.0 K/mm3 10/07/18 05:09 Myelocytes # 0.0 K/mm3 10/07/18 05:09 Promyelocytes # 0.0 K/mm3 10/07/18 05:09 Blast Cells # 0.0 K/mm3 10/07/18 05:09 WBC Morphology Not Reportable 10/07/18 05:09 Hypersegmented Neuts Not Reportable 10/07/18 05:09 Hyposegmented Neuts Not Reportable 10/07/18 05:09 Hypogranular Neuts Not Reportable 10/07/18 05:09 Smudge Cells Not Reportable 10/07/18 05:09 Toxic Granulation Not Reportable 10/07/18 05:09 Toxic Vacuolation Not Reportable 10/07/18 05:09 Dohle Bodies Not Reportable 10/07/18 05:09 Pelger-Huet Anomaly Not Reportable 10/07/18 05:09 Amina Rods Not Reportable 10/07/18 05:09 Platelet Estimate Consistent w auto 10/07/18 05:09 Clumped Platelets Not Reportable 10/07/18 05:09 Plt Clumps, EDTA Not Reportable 10/07/18 05:09 Large Platelets Few 10/07/18 05:09 Giant Platelets Not Reportable 10/07/18 05:09 Platelet Satelliting Not Reportable 10/07/18 05:09 Plt Morphology Comment Not Reportable 10/07/18 05:09 RBC Morphology Not Reportable 10/07/18 05:09 Dimorphic RBCs Not Reportable 10/07/18 05:09 Polychromasia Not Reportable 10/07/18 05:09 Hypochromasia Not Reportable 10/07/18 05:09 Poikilocytosis 1+ 10/07/18 05:09 Anisocytosis 2+ 10/07/18 05:09 Microcytosis Not Reportable 10/07/18 05:09 Macrocytosis 3+ 10/07/18 05:09 Spherocytes Not Reportable 10/07/18 05:09 Pappenheimer Bodies Not Reportable 10/07/18 05:09 Sickle Cells Not Reportable 10/07/18 05:09 Target Cells Few 10/07/18 05:09 Tear Drop Cells Not Reportable 10/07/18 05:09 Ovalocytes Not Reportable 10/07/18 05:09 Helmet Cells Not Reportable 10/07/18 05:09 [place] Bodies Not Reportable 10/07/18 05:09 [place] Rings Not Reportable 10/07/18 05:09 [place] Cells Not Reportable 10/07/18 05:09 Bite Cells Not Reportable 10/07/18 05:09 Crenated Cell Not Reportable 10/07/18 05:09 Elliptocytes Few 10/07/18 05:09 Acanthocytes (Spur) Not Reportable 10/07/18 05:09 Rouleaux Not Reportable 10/07/18 05:09 Hemoglobin C Crystals Not Reportable 10/07/18 05:09 Schistocytes Not Reportable 10/07/18 05:09 Malaria parasites Not Reportable 10/07/18 05:09 [place] Bodies Not Reportable 10/07/18 05:09 Hem Pathologist Commnt No 10/07/18 05:09 PT 18.1 Sec. (12.2-14.9) H 10/06/18 10:40 INR 1.40 (0.87-1.13) H 10/06/18 10:40 APTT 36.0 Sec. (24.2-36.6) 10/02/18 12:06 Sodium 140 mmol/L (137-145) 10/07/18 05:09 Potassium 4.2 mmol/L (3.6-5.0) 10/07/18 05:09 Chloride 102.3 mmol/L (98-107) 10/07/18 05:09 Carbon Dioxide 25 mmol/L (22-30) 10/07/18 05:09 Anion Gap 17 mmol/L 10/07/18 05:09 BUN 41 mg/dL (9-20) H 10/07/18 05:09 Creatinine 1.7 mg/dL (0.8-1.5) H 10/07/18 05:09 Estimated GFR 48 ml/min 10/07/18 05:09 BUN/Creatinine Ratio 24 % 10/07/18 05:09 Glucose 123 mg/dL (75-100) H 10/07/18 05:09 POC Glucose 71 (70-105) 10/02/18 12:30 Lactic Acid 1.30 mmol/L (0.7-2.0) 10/03/18 08:22 Calcium 8.4 mg/dL (8.4-10.2) 10/07/18 05:09 Magnesium 2.20 mg/dL (1.7-2.3) 10/02/18 13:13 Total Bilirubin 1.60 mg/dL (0.1-1.2) H 10/05/18 04:58 Direct Bilirubin 1.7 mg/dL (0-0.2) H 10/03/18 04:40 Indirect Bilirubin 1.5 mg/dL 10/03/18 04:40 AST 77 units/L (5-40) H 10/05/18 04:58 ALT 133 units/L (7-56) H 10/05/18 04:58 Alkaline Phosphatase 64 units/L (35-129) 10/05/18 04:58 Ammonia 41.0 umol/L (25-60) 10/02/18 13:13 Total Creatine Kinase 69 units/L (55-170) 10/02/18 13:13 CK-MB (CK-2) 4.5 ng/mL (0.0-4.0) H 10/02/18 13:13 CK-MB (CK-2) Rel Index 6.5 (0-4) H 10/02/18 13:13 Troponin T 0.031 ng/mL (0.00-0.029) H 10/02/18 13:13 NT-Pro-B Natriuret Pep 44870 pg/mL (0-900) H 10/02/18 13:13 Total Protein 5.9 g/dL (6.3-8.2) L 10/05/18 04:58 Albumin 2.9 g/dL (3.9-5) L 10/05/18 04:58 Albumin/Globulin Ratio 1.0 % 10/05/18 04:58 Triglycerides 52 mg/dL (2-149) 10/02/18 13:13 Cholesterol 111 mg/dL (50-199) 10/02/18 13:13 LDL Cholesterol Direct 77 mg/dL (50-130) 10/02/18 13:13 HDL Cholesterol 40 mg/dL (40-59) 10/02/18 13:13 Cholesterol/HDL Ratio 2.77 % 10/02/18 13:13 TSH 5.690 mlU/mL (0.270-4.200) H 10/02/18 13:13 Free T4 1.30 ng/dL (0.76-1.46) 10/02/18 13:13 Urine Color Nel (Yellow) 10/02/18 Unknown Urine Turbidity Clear (Clear) 10/02/18 Unknown Urine pH 5.0 (5.0-7.0) 10/02/18 Unknown Ur Specific [place] 1.035 (1.003-1.030) H 10/02/18 Unknown Urine Protein 30 mg/dl mg/dL (Negative) 10/02/18 Unknown Urine Glucose (UA) Neg mg/dL (Negative) 10/02/18 Unknown Urine Ketones Neg mg/dL (Negative) 10/02/18 Unknown Urine Blood Neg (Negative) 10/02/18 Unknown Urine Nitrite Neg (Negative) 10/02/18 Unknown Urine Bilirubin Neg (Negative) 10/02/18 Unknown Urine Urobilinogen 4.0 mg/dL (<2.0) 10/02/18 Unknown Ur Leukocyte Esterase Neg (Negative) 10/02/18 Unknown Urine WBC (Auto) 2.0 /HPF (0.0-6.0) 10/02/18 Unknown Urine RBC (Auto) 1.0 /HPF (0.0-6.0) 10/02/18 Unknown U Epithel Cells (Auto) 1.0 /HPF (0-13.0) 10/02/18 Unknown Urine Bacteria (Auto) 1+ /HPF (Negative) 10/02/18 Unknown Hyaline Casts 6 /LPF 10/02/18 Unknown Urine Mucus 1+ /HPF 10/02/18 Unknown Fluid Type Pleural 10/06/18 Unknown Fluid Color Red 10/06/18 Unknown Fluid Appearance Hazy 10/06/18 Unknown Fluid WBC 237 /mm3 10/06/18 Unknown Fluid RBC 32436 /mm3 10/06/18 Unknown Fluid Seg Neutrophils 19.0 % 10/06/18 Unknown Fluid Lymphocytes 44.0 % 10/06/18 Unknown Fluid Reactive Lymphs 0 % 10/06/18 Unknown Fluid Monocytes 37.0 % 10/06/18 Unknown Fluid Eosinophils 0 % 10/06/18 Unknown Fluid Basophils 0 % 10/06/18 Unknown Fluid Comment Diff performed 10/06/18 Unknown Urine Opiates Screen Presumptive negative 10/02/18 Unknown Urine Methadone Screen Presumptive negative 10/02/18 Unknown Ur Barbiturates Screen Presumptive negative 10/02/18 Unknown Ur Phencyclidine Scrn Presumptive negative 10/02/18 Unknown Ur Amphetamines Screen Presumptive negative 10/02/18 Unknown U Benzodiazepines Scrn Presumptive negative 10/02/18 Unknown Urine Cocaine Screen Presumptive negative 10/02/18 Unknown U Marijuana (THC) Screen Presumptive negative 10/02/18 Unknown Drugs of Abuse Note Disclamer 10/02/18 Unknown Active Medications - Current Medications Current Medications: Generic Name Dose Route Start Last Admin Trade Name Freq PRN Reason Stop Dose Admin Acetaminophen/Hydrocodone Bitart 1 each 10/02/18 18:24 10/05/18 13:00 [place] 5/325 PO 1 each Q4HR PRN Administration Pain Albuterol 2.5 mg 10/02/18 18:25 Proventil IH Q3HRT PRN Shortness Of Breath Atorvastatin Calcium 20 mg 10/02/18 22:00 10/06/18 22:13 Lipitor PO 20 mg QHS BIB[place]NA Administration Carvedilol 12.5 mg 10/02/18 22:00 10/06/18 22:13 Coreg PO 12.5 mg BID BIB[place] Administration Famotidine 10 mg 10/02/18 22:00 10/06/18 22:13 Pepcid PO 10 mg BID BIB[place] Administration Furosemide 40 mg 10/03/18 06:00 10/07/18 06:50 Lasix IV Not Given BID@0600,1800 BIB[place]NA Heparin Sodium (Porcine) 5,000 unit 10/05/18 22:00 10/06/18 22:13 Heparin SUB-Q 5,000 unit Q12HR BIB[place] Administration Ceftriaxone Sodium 1 gm in 50 mls @ 100 mls/hr 10/04/18 13:00 10/06/18 10:46 Rocephin/Ns 1 Gm/50 Ml IV 10/08/18 10:29 100 mls/hr Q24HR BIB[place]NA Administration Protocol Losartan Potassium 25 mg 10/03/18 10:00 10/06/18 10:44 Cozaar PO 25 mg DAILY BIB[place]NA Administration Sodium Chloride 10 ml 10/02/18 22:00 10/06/18 22:15 Sodium Chloride Flush Syringe 10 Ml IV 10 ml BID BIB[place] Administration Sodium Chloride 10 ml 10/02/18 18:25 Sodium Chloride Flush Syringe 10 Ml IV PRN PRN LINE FLUSH Spironolactone 25 mg 10/03/18 10:00 10/06/18 10:46 Aldactone PO 25 mg DAILY BIB[place]NA Administration
[2018-10-07] MEDS: COREG PO SCH ×2 (10:13→21:12)
[2018-10-07] MEDS: ALDACTONE PO SCH (10:14)
[2018-10-07] MEDS: ROCEPHIN/NS 1 GM/50 ML 1 GM/50 ML BAG IV SCH (10:14)
[2018-10-07] MEDS: HEPARIN SUB-Q SCH ×2 (10:14→21:12)
[2018-10-07] MEDS: PEPCID PO SCH ×2 (10:14→21:11)
[2018-10-07] MEDS: SODIUM CHLORIDE FLUSH SYRINGE 10 ML IV SCH ×2 (10:15→21:52)
[2018-10-07] MEDS: COZAAR PO SCH (10:38)
--- NOTE | 2018-10-07 11:14 | Ultrasound Report ---
ULTRASOUND THORACENTESIS History: Right pleural effusion. Description of procedure: Informed consent was obtained. Sterile technique was utilized. 1% lidocaine for skin anesthesia. Using ultrasound guidance, a 5 Swedish centesis needle was advanced into the right pleural space. There was spontaneous return of bloody fluid. 600 cc of fluid was aspirated. 120 cc of fluid was sent to lab for analysis. No complications. Impression: Successful ultrasound-guided right thoracentesis.
--- NOTE | 2018-10-07 13:00 | Progress Note ---
Subjective - Reason for Consult Consult date: 10/07/18 Reason for consult: Psychiatry Follow-up - Chief Complaint Chief complaint: "Hello" 73 YO AA male who presented to the ER for an medical evaluation. Psychiatry was consulted because the patient maybe hallucinating. Today the patient is calm and cooperative during the assessment. He stated that he is feeling much better when asked. He stated that he maybe being going a rehab/nursing facility when d ischarged. Per the chart, no behavioral disturbance by the patient at anytime during his hospital stay. He denies, erratic sleep, SI/Hi's and AVH's. Mental Status Exam - Vital signs Last Vital Signs Temp 97.2 F L 10/07/18 09:21 Pulse 93 H 10/07/18 10:13 Resp 16 10/07/18 09:21 BP 104/71 10/07/18 09:21 Pulse Ox 92 10/07/18 09:21 - Exam Narrative exam: MSE: Appearance: calm, cooperative Behavior: regular eye contact Speech: regular rate and tone Mood: "okay" Affect: congruent to mood Thought Process: linear Thought Content: denies SI/HI's and AVH's Motor Activity: sitting up in the bed Cognition: A/O x 3 Insight: appropriate Judgment: appropriate I Assessment and Plan Impression: Delirium on arrival to ER. Today the patient is calm and cooperative during the assessment. LF's trending down. The patient's MSE has improved since last assessment. Medical: Acute Metabolic Encephalopathy per the hospitalist. Recommendation/Plan: The patient's Delirium has resolved. Attempted to contact the patient's daughter Bertha Fernandez, no answer. Psy sign off. Dispo: The patient is pending SNF placement once medically clear, Staffed with Dr Tu Patiño.
[2018-10-08] MEDS: LASIX IV SCH (05:28)
--- NOTE | 2018-10-08 08:03 | Progress Note ---
Assessment and Plan Assessment and plan: --Rt Pleural Effusion;s/p thoracentesis, 600 mL pleural fluid removed Follow-up Pl fluid analysis --Acute kidney injury; secondary to ATN Over diuresis, decrease Lasix from twice a day to daily dose Avoid nephrotoxins, nephrology evaluation inpatient versus outpatient if no improvement --Acute Metabolic Encephalopathy: Acute psychosis patient had some hallucinations, Psych evaluation noted Possible delirium --Metabolic Acidosis; resolved --Paroxysmal Atrial fib/flutter with underlying sick sinus syndrome rate Controlled, continue beta blockers, cardiology feels not a candidate for chronic anticoagulation In view of dementia, and liver disease --Dilated Nonischemic cardiomyopathy; continue anti-failure medications Ef 15-20% by echo 06/2018, no ischemia by MPI 06/2018 --Passive hepatic congestion/transaminitis; transaminases trending down, --Hypertension; moderate control continue current antihypertensives and when necessary medications, --History of CVA; supportive care --History of COPD; oxygen, titrate O2 sats to more than 90% --Moderate malnutrition; nutrition supplements and supportive care --DVT prophylaxis Monitor the patient closely and adjust management as needed Disposition: SNF placement when medically stable; Hospitalist Physical - Constitutional Vitals: Temp Pulse Resp BP Pulse Ox 97.6 F 61 18 108/80 95 10/08/18 07:53 10/08/18 03:36 10/08/18 07:53 10/08/18 07:53 10/08/18 07:54 General appearance: Present: no acute distress, well-nourished Results - Labs CBC & Chem 7: 10/07/18 05:09 10/07/18 05:09 Labs: Laboratory Last Values WBC 3.6 K/mm3 (4.5-11.0) L 10/07/18 05:09 RBC 2.33 M/mm3 (3.65-5.03) L 10/07/18 05:09 Hgb 10.0 gm/dl (11.8-15.2) L 10/07/18 05:09 Hct 29.3 % (35.5-45.6) L 10/07/18 05:09 MCV 126 fl (84-94) H 10/07/18 05:09 MCH 43 pg (28-32) H 10/07/18 05:09 MCHC 34 % (32-34) 10/07/18 05:09 RDW 26.0 % (13.2-15.2) H 10/07/18 05:09 Plt Count 136 K/mm3 (140-440) L 10/07/18 05:09 Baso % (Auto) [employer] 10/03/18 04:40 Add Manual Diff Complete 10/07/18 05:09 Total Counted 100 10/07/18 05:09 Seg Neuts % (Manual) 74.0 % (40.0-70.0) H 10/07/18 05:09 Band Neutrophils % 0 % 10/07/18 05:09 Lymphocytes % (Manual) 16.0 % (13.4-35.0) 10/07/18 05:09 Reactive Lymphs % (Man) 0 % 10/07/18 05:09 Monocytes % (Manual) 8.0 % (0.0-7.3) H 10/07/18 05:09 Eosinophils % (Manual) 2.0 % (0.0-4.3) 10/07/18 05:09 Basophils % (Manual) 0 % (0.0-1.8) 10/07/18 05:09 Metamyelocytes % 0 % 10/07/18 05:09 Myelocytes % 0 % 10/07/18 05:09 Promyelocytes % 0 % 10/07/18 05:09 Blast Cells % 0 % 10/07/18 05:09 Nucleated RBC % 5.0 % (0.0-0.9) H 10/07/18 05:09 Seg Neutrophils # Man 2.7 K/mm3 (1.8-7.7) 10/07/18 05:09 Band Neutrophils # 0.0 K/mm3 10/07/18 05:09 Lymphocytes # (Manual) 0.6 K/mm3 (1.2-5.4) L 10/07/18 05:09 Abs React Lymphs (Man) 0.0 K/mm3 10/07/18 05:09 Monocytes # (Manual) 0.3 K/mm3 (0.0-0.8) 10/07/18 05:09 Eosinophils # (Manual) 0.1 K/mm3 (0.0-0.4) 10/07/18 05:09 Basophils # (Manual) 0.0 K/mm3 (0.0-0.1) 10/07/18 05:09 Metamyelocytes # 0.0 K/mm3 10/07/18 05:09 Myelocytes # 0.0 K/mm3 10/07/18 05:09 Promyelocytes # 0.0 K/mm3 10/07/18 05:09 Blast Cells # 0.0 K/mm3 10/07/18 05:09 WBC Morphology Not Reportable 10/07/18 05:09 Hypersegmented Neuts Not Reportable 10/07/18 05:09 Hyposegmented Neuts Not Reportable 10/07/18 05:09 Hypogranular Neuts Not Reportable 10/07/18 05:09 Smudge Cells Not Reportable 10/07/18 05:09 Toxic Granulation Not Reportable 10/07/18 05:09 Toxic Vacuolation Not Reportable 10/07/18 05:09 Dohle Bodies Not Reportable 10/07/18 05:09 Pelger-Huet Anomaly Not Reportable 10/07/18 05:09 Amina Rods Not Reportable 10/07/18 05:09 Platelet Estimate Consistent w auto 10/07/18 05:09 Clumped Platelets Not Reportable 10/07/18 05:09 Plt Clumps, EDTA Not Reportable 10/07/18 05:09 Large Platelets Few 10/07/18 05:09 Giant Platelets Not Reportable 10/07/18 05:09 Platelet Satelliting Not Reportable 10/07/18 05:09 Plt Morphology Comment Not Reportable 10/07/18 05:09 RBC Morphology Not Reportable 10/07/18 05:09 Dimorphic RBCs Not Reportable 10/07/18 05:09 Polychromasia Not Reportable 10/07/18 05:09 Hypochromasia Not Reportable 10/07/18 05:09 Poikilocytosis 1+ 10/07/18 05:09 Anisocytosis 2+ 10/07/18 05:09 Microcytosis Not Reportable 10/07/18 05:09 Macrocytosis 3+ 10/07/18 05:09 Spherocytes Not Reportable 10/07/18 05:09 Pappenheimer Bodies Not Reportable 10/07/18 05:09 Sickle Cells Not Reportable 10/07/18 05:09 Target Cells Few 10/07/18 05:09 Tear Drop Cells Not Reportable 10/07/18 05:09 Ovalocytes Not Reportable 10/07/18 05:09 Helmet Cells Not Reportable 10/07/18 05:09 [place] Bodies Not Reportable 10/07/18 05:09 [place] Rings Not Reportable 10/07/18 05:09 Dol[place] Cells Not Reportable 10/07/18 05:09 Bite Cells Not Reportable 10/07/18 05:09 Crenated Cell Not Reportable 10/07/18 05:09 Elliptocytes Few 10/07/18 05:09 Acanthocytes (Spur) Not Reportable 10/07/18 05:09 Rouleaux Not Reportable 10/07/18 05:09 Hemoglobin C Crystals Not Reportable 10/07/18 05:09 Schistocytes Not Reportable 10/07/18 05:09 Malaria parasites Not Reportable 10/07/18 05:09 [place] Bodies Not Reportable 10/07/18 05:09 Hem Pathologist Commnt No 10/07/18 05:09 PT 18.1 Sec. (12.2-14.9) H 10/06/18 10:40 INR 1.40 (0.87-1.13) H 10/06/18 10:40 APTT 36.0 Sec. (24.2-36.6) 10/02/18 12:06 Sodium 140 mmol/L (137-145) 10/07/18 05:09 Potassium 4.2 mmol/L (3.6-5.0) 10/07/18 05:09 Chloride 102.3 mmol/L (98-107) 10/07/18 05:09 Carbon Dioxide 25 mmol/L (22-30) 10/07/18 05:09 Anion Gap 17 mmol/L 10/07/18 05:09 BUN 41 mg/dL (9-20) H 10/07/18 05:09 Creatinine 1.7 mg/dL (0.8-1.5) H 10/07/18 05:09 Estimated GFR 48 ml/min 10/07/18 05:09 BUN/Creatinine Ratio 24 % 10/07/18 05:09 Glucose 123 mg/dL (75-100) H 10/07/18 05:09 POC Glucose 71 (70-105) 10/02/18 12:30 Lactic Acid 1.30 mmol/L (0.7-2.0) 10/03/18 08:22 Calcium 8.4 mg/dL (8.4-10.2) 10/07/18 05:09 Magnesium 2.20 mg/dL (1.7-2.3) 10/02/18 13:13 Total Bilirubin 1.60 mg/dL (0.1-1.2) H 10/05/18 04:58 Direct Bilirubin 1.7 mg/dL (0-0.2) H 10/03/18 04:40 Indirect Bilirubin 1.5 mg/dL 10/03/18 04:40 AST 77 units/L (5-40) H 10/05/18 04:58 ALT 133 units/L (7-56) H 10/05/18 04:58 Alkaline Phosphatase 64 units/L (35-129) 10/05/18 04:58 Ammonia 41.0 umol/L (25-60) 10/02/18 13:13 Total Creatine Kinase 69 units/L (55-170) 10/02/18 13:13 CK-MB (CK-2) 4.5 ng/mL (0.0-4.0) H 10/02/18 13:13 CK-MB (CK-2) Rel Index 6.5 (0-4) H 10/02/18 13:13 Troponin T 0.031 ng/mL (0.00-0.029) H 10/02/18 13:13 NT-Pro-B Natriuret Pep 00492 pg/mL (0-900) H 10/02/18 13:13 Total Protein 5.9 g/dL (6.3-8.2) L 10/05/18 04:58 Albumin 2.9 g/dL (3.9-5) L 10/05/18 04:58 Albumin/Globulin Ratio 1.0 % 10/05/18 04:58 Triglycerides 52 mg/dL (2-149) 10/02/18 13:13 Cholesterol 111 mg/dL (50-199) 10/02/18 13:13 LDL Cholesterol Direct 77 mg/dL (50-130) 10/02/18 13:13 HDL Cholesterol 40 mg/dL (40-59) 10/02/18 13:13 Cholesterol/HDL Ratio 2.77 % 10/02/18 13:13 TSH 5.690 mlU/mL (0.270-4.200) H 10/02/18 13:13 Free T4 1.30 ng/dL (0.76-1.46) 10/02/18 13:13 Urine Color Nel (Yellow) 10/02/18 Unknown Urine Turbidity Clear (Clear) 10/02/18 Unknown Urine pH 5.0 (5.0-7.0) 10/02/18 Unknown Ur Specific [place] 1.035 (1.003-1.030) H 10/02/18 Unknown Urine Protein 30 mg/dl mg/dL (Negative) 10/02/18 Unknown Urine Glucose (UA) Neg mg/dL (Negative) 10/02/18 Unknown Urine Ketones Neg mg/dL (Negative) 10/02/18 Unknown Urine Blood Neg (Negative) 10/02/18 Unknown Urine Nitrite Neg (Negative) 10/02/18 Unknown Urine Bilirubin Neg (Negative) 10/02/18 Unknown Urine Urobilinogen 4.0 mg/dL (<2.0) 10/02/18 Unknown Ur Leukocyte Esterase Neg (Negative) 10/02/18 Unknown Urine WBC (Auto) 2.0 /HPF (0.0-6.0) 10/02/18 Unknown Urine RBC (Auto) 1.0 /HPF (0.0-6.0) 10/02/18 Unknown U Epithel Cells (Auto) 1.0 /HPF (0-13.0) 10/02/18 Unknown Urine Bacteria (Auto) 1+ /HPF (Negative) 10/02/18 Unknown Hyaline Casts 6 /LPF 10/02/18 Unknown Urine Mucus 1+ /HPF 10/02/18 Unknown Fluid Type Pleural 10/06/18 Unknown Fluid Color Red 10/06/18 Unknown Fluid Appearance Hazy 10/06/18 Unknown Fluid WBC 237 /mm3 10/06/18 Unknown Fluid RBC 72825 /mm3 10/06/18 Unknown Fluid Seg Neutrophils 19.0 % 10/06/18 Unknown Fluid Lymphocytes 44.0 % 10/06/18 Unknown Fluid Reactive Lymphs 0 % 10/06/18 Unknown Fluid Monocytes 37.0 % 10/06/18 Unknown Fluid Eosinophils 0 % 10/06/18 Unknown Fluid Basophils 0 % 10/06/18 Unknown Fluid LDH 10/06/18 Unknown Fluid Comment Diff performed 10/06/18 Unknown Urine Opiates Screen Presumptive negative 10/02/18 Unknown Urine Methadone Screen Presumptive negative 10/02/18 Unknown Ur Barbiturates Screen Presumptive negative 10/02/18 Unknown Ur Phencyclidine Scrn Presumptive negative 10/02/18 Unknown Ur Amphetamines Screen Presumptive negative 10/02/18 Unknown U Benzodiazepines Scrn Presumptive negative 10/02/18 Unknown Urine Cocaine Screen Presumptive negative 10/02/18 Unknown U Marijuana (THC) Screen Presumptive negative 10/02/18 Unknown Drugs of Abuse Note Disclamer 10/02/18 Unknown Active Medications - Current Medications Current Medications: Generic Name Dose Route Start Last Admin Trade Name Freq PRN Reason Stop Dose Admin Acetaminophen/Hydrocodone Bitart 1 each 10/02/18 18:24 10/05/18 13:00 [place] 5/325 PO 1 each Q4HR PRN Administration Pain Albuterol 2.5 mg 10/02/18 18:25 Proventil IH Q3HRT PRN Shortness Of Breath Atorvastatin Calcium 20 mg 10/02/18 22:00 10/07/18 21:11 Lipitor PO 20 mg QHS BIBIANA Administration Carvedilol 12.5 mg 10/02/18 22:00 10/07/18 21:12 Coreg PO 12.5 mg BID BIBIANA Administration Famotidine 10 mg 10/02/18 22:00 10/07/18 21:11 Pepcid PO 10 mg BID BIBIANA Administration Furosemide 40 mg 10/03/18 06:00 10/08/18 05:28 Lasix IV 40 mg BID@0600,1800 BIBIANA Administration Heparin Sodium (Porcine) 5,000 unit 10/05/18 22:00 10/07/18 21:12 Heparin SUB-Q 5,000 unit Q12HR BIBIANA Administration Ceftriaxone Sodium 1 gm in 50 mls @ 100 mls/hr 10/04/18 13:00 10/07/18 10:14 Rocephin/Ns 1 Gm/50 Ml IV 10/08/18 10:29 100 mls/hr Q24HR BIBIANA Administration Protocol Losartan Potassium 25 mg 10/03/18 10:00 10/07/18 10:38 Cozaar PO 25 mg DAILY BIBIANA Administration Sodium Chloride 10 ml 10/02/18 22:00 10/07/18 21:52 Sodium Chloride Flush Syringe 10 Ml IV Not Given BID BIBIANA Sodium Chloride 10 ml 10/02/18 18:25 Sodium Chloride Flush Syringe 10 Ml IV PRN PRN LINE FLUSH Spironolactone 25 mg 10/03/18 10:00 10/07/18 10:14 Aldactone PO 25 mg DAILY BIBIANA Administration
[2018-10-08] MEDS: ROCEPHIN/NS 1 GM/50 ML 1 GM/50 ML BAG IV SCH (10:07)
[2018-10-08] MEDS: COREG PO SCH (10:08)
[2018-10-08] MEDS: HEPARIN SUB-Q SCH (10:08)
[2018-10-08] MEDS: PEPCID PO SCH (10:09)
[2018-10-08] MEDS ORDERED: LASIX IV SCH (10:15)
[2018-10-08] MEDS: ALDACTONE PO SCH (10:23)
[2018-10-08] MEDS: SODIUM CHLORIDE FLUSH SYRINGE 10 ML IV SCH (10:24)
[2018-10-08 12:22] VITALS: BP 102/74
--- NOTE | 2018-10-08 12:46 | Discharge Summary ---
Providers - Providers Date of Admission: 10/02/18 18:25 Date of discharge: 10/08/18 Attending physician: GABY KAUFMAN 10/04/18 12:16 Consult to Mental Health [CONS] Routine Reason For Exam: medication management, hallicination Place consult to:: mental health Notified:: yes Phone number called:: [phone] Was contact made?: Yes If yes, spoke with:: tera Time called:: 13:54 10/05/18 10:25 Physical Therapy Evaluation and Treat [CONS] Routine Comment: Reason For Exam: WEAKNESS 10/05/18 10:26 Occupational Therapy Evaluate and Treat [CONS] Routine Comment: Reason For Exam: WEAKNESS Primary care physician: BAR PILOT Hospitalization Reason for admission: Altered level of consciousness/shortness of breath 3-4 days Condition: Stable Pertinent studies: CT head CT chest MRI MRA Procedures: Rt Thoracentesis and removal of 600 cc pleural fluid Hospital course: 73 YO Male with HTN, HLD, CVA, Systolic CHF(EF 15%), COPD, GERD, End Stage Liver Disease, Dementia, Debility was admitted through ED with altered level of consciousness ,decreased responsiveness and increased confusion and slurred speech with worsening symptoms over the past 1 week. Admitted and symptomatically managed,had extensive neuro workup,not a candidate for TPA. Evaluated by cardiology and psych, medications optimised.Underwent US guided thracentesis. Symptoms significantly improves. Discharge Diagnosis: --Rt Pleural Effusion;s/p thoracentesis, 600 mL pleural fluid removed Follow-up Pl fluid analysis --Acute kidney injury; secondary to ATN Over diuresis, decrease Lasix from twice a day to daily dose Avoid nephrotoxins, nephrology evaluation inpatient versus outpatient if no improvement --Acute Metabolic Encephalopathy: Acute psychosis patient had some hallucinations, Psych evaluation noted Possible delirium --Metabolic Acidosis; resolved --Paroxysmal Atrial fib/flutter with underlying sick sinus syndrome rate Controlled, continue beta blockers, cardiology feels not a candidate for chronic anticoagulation In view of dementia, and liver disease --Dilated Nonischemic cardiomyopathy; continue anti-failure medications Ef 15-20% by echo 06/2018, no ischemia by MPI 06/2018 --Passive hepatic congestion/transaminitis; transaminases trending down, --Hypertension; moderate control continue current antihypertensives and when necessary medications, --History of CVA; supportive care --History of COPD; oxygen, titrate O2 sats to more than 90% --Moderate malnutrition; nutrition supplements and supportive care --DVT prophylaxis Monitor the patient closely and adjust management as needed Disposition: SNF placement when medically stable; Patient stable at discharge Disposition: [id number] Time spent for discharge: 32 min Core Measure Documentation - Palliative Care Palliative Care/ Comfort Measures: Not Applicable - Core Measures Any of the following diagnoses?: heart failure - Heart Failure Discharge Requirements HERNAN/ARB for LVSD if EF <40%: No Reason for no HERNAN/ARB: Renal impairment Beta gurjit at discharge: Yes Exam - Constitutional Vitals: Temp Pulse Resp BP Pulse Ox 97.5 F L 70 16 102/74 86 10/08/18 12:19 10/08/18 12:19 10/08/18 12:19 10/08/18 12:19 10/08/18 12:19 General appearance: Present: no acute distress, well-nourished - EENT Eyes: Present: PERRL, EOM intact - Neck Neck: Present: supple, normal ROM - Respiratory Respiratory effort: normal Respiratory: bilateral: diminished, negative: rales, rhonchi, wheezing - Cardiovascular Rhythm: regular Heart Sounds: Present: S1 & S2 - Extremities Extremities: no ischemia, abnormal (Rt BKA) - Abdominal General gastrointestinal: Present: soft, non-tender, non-distended, normal bowel sounds - Integumentary Integumentary: Present: clear, warm - Musculoskeletal Musculoskeletal: strength equal bilaterally, generalized weakness - Psychiatric Psychiatric: appropriate mood/affect, cooperative - Neurologic Neurologic: CNII-XII intact, moves all extremities Plan Activity: advance as tolerated, fall precautions Diet: other (Cardiac Diet) Special Instructions: physical therapy Additional Instructions: Fall precautions Follow up with: PRIMARY MD GIL [Primary Care Provider] - 3-5 Days SOPHIA GRANDA MD [Staff Physician] - 7 Days
[2018-10-19 14:53] LABS: LDH,Body Fluid 151; Total Protein,Body Fluid < 3.0 (15.0-45.0)
== END 2018-10-08 15:36 | DRG 441 ==
LOC: ED 11:32 → IMCU 18:25 → 4A 10-03 19:52
PROVIDERS: ADMIT Internal Medicine; ATTEND Internal Medicine
PROC: 0W993ZZ Drainage of Right Pleural Cavity, Percutaneous Approach (ICD-10-PCS; principal; 2018-10-06)
DX: K72.90 Hepatic failure, unspecified without coma (principal); I50.43 Acute on chronic combined systolic (congestive) and diastolic (congestive) heart failure; G93.41 Metabolic encephalopathy; N17.0 Acute kidney failure with tubular necrosis; E87.2 Acidosis; I42.0 Dilated cardiomyopathy; L03.115 Cellulitis of right lower limb; I48.4 Atypical atrial flutter; I13.0 Hypertensive heart and chronic kidney disease with heart failure and stage 1 through stage 4 chronic kidney disease, or unspecified chronic kidney disease; E44.0 Moderate protein-calorie malnutrition; J91.8 Pleural effusion in other conditions classified elsewhere; I48.0 Paroxysmal atrial fibrillation; N18.3 Chronic kidney disease, stage 3 (moderate); K21.9 Gastro-esophageal reflux disease without esophagitis; I49.5 Sick sinus syndrome; F03.90 Unspecified dementia, unspecified severity, without behavioral disturbance, psychotic disturbance, mood disturbance, and anxiety; R62.7 Adult failure to thrive; J44.9 Chronic obstructive pulmonary disease, unspecified; Z86.73 Personal history of transient ischemic attack (TIA), and cerebral infarction without residual deficits; Z83.3 Family history of diabetes mellitus; Z82.49 Family history of ischemic heart disease and other diseases of the circulatory system; Z89.511 Acquired absence of right leg below knee; Z79.899 Other long term (current) drug therapy; Z68.21 Body mass index [BMI] 21.0-21.9, adult
CPT/HCPCS: 32555; 36415; 70450; 70544; 70551; 71045; 71260; 76700; 80048; 80053; 80061; 80076; 80307; 81001; 82140; 82550; 82553; 82947; 82962; 83605; 83735; 83880; 84160; 84439; 84443; 84484; 85007; 85025; 85027; 85610; 85730; 87040; 87086; 88112; 88305; 88312; 89051; 93005; 93010; G0378; A9270-GY; J0696; J1644; J1650; J1940; J2185; J3370; J7030; J7050; Q9967

== ENCOUNTER 2019-11-29 09:51 | Inpatient (IN) | payer MEDICARE ==
[2019-11-29] MEDS ORDERED: SODIUM CHLORIDE 0.9% 500 ML 500 ML IV ONE (10:20)
[2019-11-29] MEDS ORDERED: SODIUM CHLORIDE 0.9% 500 ML 500 ML ONE (10:23)
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
[2019-11-29] MEDS ORDERED: SODIUM CHLORIDE 0.9% 1000 ML IV SOLN IV ONE (10:45)
[2019-11-29] MEDS ORDERED: CEFEPIME/NS 1 GM/100 ML 1 GM/100 ML BAG IV ONE (10:45)
--- NOTE | 2019-11-29 11:05 | XRay Report ---
CHEST 1 VIEW 11/29/2019 9:51 AM INDICATION / CLINICAL INFORMATION: sob. COMPARISON: One view of the chest from 10/06/2018. FINDINGS: SUPPORT DEVICES: None. HEART / MEDIASTINUM: Stable. LUNGS / PLEURA: Bibasilar airspace opacities have increased with a slightly larger small left pleural effusion and probable trace right pleural effusion. No pneumothorax. ADDITIONAL FINDINGS: No significant additional findings. IMPRESSION: Increased bibasilar opacities with a larger left pleural effusion and probable trace right pleural ef fusion. Signer Name: Ovidio Joseph MD Signed: 11/29/2019 11:01 AM Workstation Name: [id number]
[2019-11-29 11:12] LABS: Hemoglobin 6.7 gm/dl (11.8-15.2); Mean Corpuscular HGB Conc 35 % (32-34); Red Blood Count 1.65 M/mm3 (3.65-5.03)
[2019-11-29 11:37] LABS: Albumin 2.2 g/dL (3.9-5); Calcium 8.2 mg/dL (8.4-10.2)
[2019-11-29 11:38] LABS: Hematocrit 19.4 % (35.5-45.6); Mean Corpuscular Volume 117 fl (84-94); Platelet Count 46 K/mm3 (140-440); Red Cell Distribution Width 31.1 % (13.2-15.2)
[2019-11-29 12:05] LABS: Chol/HDL Ratio 3.11 %
[2019-11-29 12:24] LABS: Band Neutrophils # (Manual) 0.4 K/mm3; Basophils % (Manual) 0 % (0.0-1.8); Total Cells Counted 100
[2019-11-29 12:25] LABS: Anisocytosis 3+; Macrocytosis 1+
[2019-11-29 12:26] LABS: Burr Cells 2+; Large Platelets Few; Platelet Estimate Consistent w Auto; Target Cells Few
[2019-11-29 12:43] LABS: ABG Base Excess -2.9 mmol/L (-2.0-3.0); ABG HCO3 23.4 mmol/L (20.0-26.0); ABG Methemoglobin 0.5 % (0.0-1.5); ABG Oxygen Saturation 90.9 % (95.0-99.0); ABG PCO2 48.7 mm Hg; ABG PH 7.301 pH Units (7.350-7.450); ABG PO2 71.7 mm Hg (80.0-90.0)
[2019-11-29] MEDS ORDERED: SODIUM CHLORIDE 0.9% 1000 ML 1,000 ML ONE ×3 (13:20→18:04)
[2019-11-29 13:24] LABS: Bilirubin,Urine NEG (Negative); Blood,Urine NEG (Negative); Color,Urine Amber (Yellow); Protein,Urine <15 mg/dL mg/dL (Negative)
[2019-11-29 13:31] LABS: RBC,Urine < 1.0 /HPF (0.0-6.0)
--- NOTE | 2019-11-29 14:14 | Cat Scan Report ---
CT head without contrast HISTORY: fall. Fall with headache TECHNIQUE: Axial imaging performed from the skull apex through the skull base without the use of con trast. All CT scans at this location are performed using CT dose reduction for ALARA by means of aut omated exposure control. COMPARISON: CT head from 10/02/2018 FINDINGS: Parenchyma: No acute intracranial hemorrhage or parenchymal abnormality. Ventricles: There is mild diffuse brain atrophy with commensurate ventricular enlargement which is l ikely age appropriate. Soft tissues: Soft tissues including the orbits appear normal. Bones: No acute osseous abnormality. Sinuses: Sinuses and mastoid air cells are clear. IMPRESSION: No acute abnormality. Signer Name: Vince Zepeda MD Signed: 11/29/2019 2:09 PM Workstation Name: [id number]
[2019-11-29] MEDS ORDERED: NORepinephrine/NS 4 MG-250 ML 4 MG/250 ML BAG IV ONE ×3 (14:15→21:09)
--- NOTE | 2019-11-29 14:17 | History and Physical Report ---
History of Present Illness Chief complaint: He's weak, He fell down, and he cant breathe History of present illness: 74 YO Male with HTN, HLD, CVA, Systolic CHF(EF 15%), COPD, Chronic Respiratory Failure on 2L Home Oxygen via, GERD, End Stage Liver Disease, Dementia, Debility presents to ED for evaluation. Pt is nonverbal and unable to provide history. Pt history taken from family who were called at the time of my evaluation to discuss the patient. As per family, the patient has experienced progressive weakness resulting in multiple falls, increased confusion over the past 2 weeks with worsening symptoms over the past 2 days. Pt is now bedbound and requires 6/6 assistance with activities of daily living, has auditory and visual hallucinations, decreased oral intake, and inability to recognize family members. EMS notified and upon arrival the patient was found to be in distress and transported to [facility] for further care and evaluation. Pt seen and evaluated in ED and found to have Acute Hypoxemic Respiratory Failure, Bilateral Pneumonia, Toxic Encephalopathy, JUNG, Sepsis. Pt found to have hypotensive with systolic blood pressure in the 50's. Pt initiated on Sepsis protocol as well as IV pressor support and IVF resuscitation therapy. Pt admitted to ICU. Critical Care Team consulted. Advanced care planning conducted in ED. Past History Past Medical History: COPD, GERD, hypertension, hyperlipidemia, liver disease, stroke, other (see hpi) Past Surgical History: Other (Heart Cath) Social history: . denies: smoking, alcohol abuse, prescription drug abuse Family history: diabetes, hypertension Medications and Allergies Allergies Allergy/AdvReac Type Severity Reaction Status Date / Time No Known Allergies Allergy Verified 06/24/17 14:41 Home Medications Medication Instructions Recorded Confirmed Last Taken Type AtorvaSTATin [Lipitor] 20 mg PO QHS #30 tablet 07/10/18 10/02/18 07/27/18 Rx Clopidogrel [Plavix] 75 mg PO DAILY #30 tablet 07/10/18 10/02/18 07/25/18 Rx Famotidine [Pepcid] 20 mg PO BID #60 tablet 07/10/18 10/02/18 07/27/18 Rx Furosemide [Lasix TAB] 40 mg PO QDAY #30 tablet 07/10/18 10/02/18 07/27/18 Rx Spironolactone [Aldactone] 25 mg PO DAILY #30 tablet 07/10/18 10/02/18 07/27/18 Rx carvediloL [Coreg] 12.5 mg PO BID #60 tablet 07/10/18 10/02/18 07/27/18 Rx Review of Systems ROS unobtainable: due to mental status Exam - Constitutional Vitals: Temp Pulse Resp BP Pulse Ox 97.4 F L 63 19 90/61 91 11/29/19 10:09 11/29/19 13:00 11/29/19 13:00 11/29/19 13:00 11/29/19 13:00 General appearance: Present: severe distress, cachectic - EENT Eyes: Present: miosis ENT: hearing decreased - Neck Neck: Present: supple, normal ROM - Respiratory Respiratory effort: normal Respiratory: bilateral: diminished, rhonchi - Cardiovascular Heart Sounds: Present: S1 & S2. Absent: rub, click - Extremities Extremities: pulses symmetrical, No edema Peripheral Pulses: within normal limits - Abdominal General gastrointestinal: Present: soft, non-tender, non-distended, normal bowel sounds Male genitourinary: Present: normal - Integumentary Integumentary: Present: clear, warm, dry - Musculoskeletal Musculoskeletal: generalized weakness - Psychiatric Psychiatric: no appropriate mood/affect, no intact judgment & insight, no memory intact - Neurologic Neurologic: CNII-XII intact, moves all extremities, no gait normal HEART Score - HEART Score Troponin: Troponin T 0.038 ng/mL (0.00-0.029) H 11/29/19 10:55 Results - Labs CBC & Chem 7: 11/29/19 10:55 11/29/19 10:55 Labs: Abnormal lab results 11/29/19 11/29/19 11/29/19 Range/Units 10:55 10:55 10:55 WBC 1.2 L* (4.5-11.0) K/mm3 RBC 1.65 L (3.65-5.03) M/mm3 Hgb 6.7 L (11.8-15.2) gm/dl Hct 19.4 L* (35.5-45.6) % MCV 117 H (84-94) fl MCH 41 H (28-32) pg MCHC 35 H (32-34) % RDW 31.1 H (13.2-15.2) % Plt Count 46 L (140-440) K/mm3 Lymphocytes % (Manual) 8.0 L (13.4-35.0) % Nucleated RBC % 8.0 H (0.0-0.9) % Seg Neutrophils # Man 0.7 L (1.8-7.7) K/mm3 Lymphocytes # (Manual) 0.1 L (1.2-5.4) K/mm3 APTT 43.1 H (24.2-36.6) Sec. ABG pH (7.350-7.450) pH Units ABG pO2 (80.0-90.0) mm Hg ABG O2 Saturation (95.0-99.0) % ABG Base Excess (-2.0-3.0) mmol/L ABG Hemoglobin (14.0-18.0) gm/dl Oxyhemoglobin (95.0-99.0) % Chloride 111.9 H (98-107) mmol/L Carbon Dioxide 21 L (22-30) mmol/L BUN 45 H (9-20) mg/dL Creatinine 1.9 H (0.8-1.5) mg/dL Glucose 114 H (75-100) mg/dL Lactic Acid (0.7-2.0) mmol/L Calcium 8.2 L (8.4-10.2) mg/dL Total Bilirubin 2.20 H (0.1-1.2) mg/dL Alkaline Phosphatase 34 L (35-129) units/L Troponin T 0.038 H (0.00-0.029) ng/mL NT-Pro-B Natriuret Pep (0-900) pg/mL Total Protein 4.9 L (6.3-8.2) g/dL Albumin 2.2 L (3.9-5) g/dL HDL Cholesterol 27 L (40-59) mg/dL 11/29/19 11/29/19 11/29/19 Range/Units 10:55 10:55 11:50 WBC (4.5-11.0) K/mm3 RBC (3.65-5.03) M/mm3 Hgb (11.8-15.2) gm/dl Hct (35.5-45.6) % MCV (84-94) fl MCH (28-32) pg MCHC (32-34) % RDW (13.2-15.2) % Plt Count (140-440) K/mm3 Lymphocytes % (Manual) (13.4-35.0) % Nucleated RBC % (0.0-0.9) % Seg Neutrophils # Man (1.8-7.7) K/mm3 Lymphocytes # (Manual) (1.2-5.4) K/mm3 APTT (24.2-36.6) Sec. ABG pH 7.301 L (7.350-7.450) pH Units ABG pO2 71.7 L (80.0-90.0) mm Hg ABG O2 Saturation 90.9 L (95.0-99.0) % ABG Base Excess -2.9 L (-2.0-3.0) mmol/L ABG Hemoglobin 7.5 L (14.0-18.0) gm/dl Oxyhemoglobin 88.1 L (95.0-99.0) % Chloride (98-107) mmol/L Carbon Dioxide (22-30) mmol/L BUN (9-20) mg/dL Creatinine (0.8-1.5) mg/dL Glucose (75-100) mg/dL Lactic Acid 2.10 H* (0.7-2.0) mmol/L Calcium (8.4-10.2) mg/dL Total Bilirubin (0.1-1.2) mg/dL Alkaline Phosphatase (35-129) units/L Troponin T (0.00-0.029) ng/mL NT-Pro-B Natriuret Pep 25553 H (0-900) pg/mL Total Protein (6.3-8.2) g/dL Albumin (3.9-5) g/dL HDL Cholesterol (40-59) mg/dL Assessment and Plan - Patient Problems (1) Sepsis Current Visit: Yes Status: Acute Qualifiers: Acute renal failure type: with acute tubular necrosis Plan to address problem: Sepsis protocol: IVF resuscitation therapy, CBC, CMP, Chest x ray, urinalysis, monitor uop q shift, strict I/O, daily weight, maintain mean arterial blood p ressure greater than or equal to 65, IV pressor support,IV antibiotic therapy. The high probability of a clinically significant, sudden or life threatening deterioration of the [cardiac, renal, neuro, pulmonary] system(s) required my full and direct attention, intervention and personal management. The aggregate critical care time was [65] minutes. This time is in addition to time spent performing reported procedures but includes the following: [x] Data Review and interpretation [x] Patient assessment and monitoring of vital signs [x] Documentation [x] Medication orders and management (2) Acute respiratory failure with hypoxia Current Visit: Yes Status: Acute Plan to address problem: Supplemental oxygen, nebulizer therapy, Non Invasive Positive Pressure Ventilation, ABG, Chest X ray, pulse oximetry, (3) Acute kidney injury (JUNG) with acute tubular necrosis (ATN) Current Visit: Yes Status: Acute Plan to address problem: Monitor uop q shift, IVF resuscitation therapy, bmp, repeat bmp. (4) GERD (gastroesophageal reflux disease) Current Visit: Yes Status: Acute Qualifiers: Esophagitis presence: without esophagitis Qualified Code(s): K21.9 - Gastro-esophageal reflux disease without esophagitis Plan to address problem: PPI therapy, supportive care. (5) End stage liver disease Current Visit: Yes Status: Acute Plan to address problem: supportive care. Poor prognosis (6) HTN (hypertension) Current Visit: Yes Status: Acute Qualifiers: Hypertension type: essential hypertension Qualified Code(s): I10 - Essen tial (primary) hypertension Plan to address problem: Hold antihypertensive therapy. pt is hypotensive. (7) HLD (hyperlipidemia) Current Visit: Yes Status: Acute Qualifiers: Hyperlipidemia type: mixed hyperlipidemia Qualified Code(s): E78.2 - Mixed hyperlipidemia Plan to address problem: statin therapy as indicated (8) DVT prophylaxis Current Visit: Yes Status: Acute Plan to address problem: SCD to BLE while in bed, (9) Advance care planning Current Visit: Yes Status: Acute Plan to address problem: Disease education conducted, Discussed care plan with family, Pt family request aggressive medical care, Pt is full code. +30minutes.
[2019-11-29] MEDS ORDERED: FUROSEMIDE 40 MG/4 ML INJ IV ONE (14:22)
[2019-11-29] MEDS: NORepinephrine/NS 4 MG-250 ML 4 MG/250 ML BAG IV SCH ×2 (14:33→21:25)
[2019-11-29 14:39] LABS: INR 1.95 (0.87-1.13)
[2019-11-29] MEDS ORDERED: SODIUM CHLORIDE 0.9% 1000 ML 1,000 ML IV SCH (15:00)
[2019-11-29] MEDS ORDERED: VANCOMYCIN 1,000 MG in SODIUM CHLORIDE 0.9% 500 ML 500 ML IV ONE (15:02)
--- NOTE | 2019-11-29 15:30 | Consultation ---
History of Present Illness - Reason for Consult Consult date: 11/29/19 acute renal failure, metabolic acidosis - History of Present Illness The patient is a 74 nYO male with history of CKD, hypertension, CVA, CHF (EF of 15%), COPD on home O2, end-stage liver disease and dementia who presented to [facility] ED 11/28 with generalized weakness. Patient is a very poor historian and there was no family member at the bedside. Information was gathered from prior documentation. Per daughter patient has not been eating in the last 2 weeks, only drinking water and eating ice. She states patient has been yelling out randomly. Patient has chronic cough. She denies that patient has had fever, shortness of breath, vomiting. Patient fell off of the sofa this morning. Patient denies chest pain, ALMEIDA or difficulty breathing. In the ED he is hypotensive, received IV fluid bolus and on Levophed. Labs significant for pancytopenia, PH 7.3, BUN 45, Creat 1.9 and bNP 34627. CXR showed increased bibasilar opacities and large L pleural effusion. Nephrology was consulted for further evaluation of JUNG. Past History Past Medical History: heart failure, hypertension, renal failure, stroke, other (dementia) Medications and Allergies Allergies Allergy/AdvReac Type Severity Reaction Status Date / Time No Known Allergies Allergy Verified 06/24/17 14:41 Home Medications Medication Instructions Recorded Confirmed Last Taken Type AtorvaSTATin [Lipitor] 20 mg PO QHS #30 tablet 07/10/18 10/02/18 07/27/18 Rx Clopidogrel [Plavix] 75 mg PO DAILY #30 tablet 07/10/18 10/02/18 07/25/18 Rx Famotidine [Pepcid] 20 mg PO BID #60 tablet 07/10/18 10/02/18 07/27/18 Rx Furosemide [Lasix TAB] 40 mg PO QDAY #30 tablet 07/10/18 10/02/18 07/27/18 Rx Spironolactone [Aldactone] 25 mg PO DAILY #30 tablet 07/10/18 10/02/18 07/27/18 Rx carvediloL [Coreg] 12.5 mg PO BID #60 tablet 07/10/18 10/02/18 07/27/18 Rx Active Meds: Active Medications Norepinephrine (Levophed Drip 4 Mg/Ns 250 Ml) 4 mg in 250 mls @ 7.5 mls/hr IV TITR BIBIANA; Protocol Last Titration: 11/29/19 15:09 Dose: 20 mcg/min, 75 mls/hr Documented by: Sodium Chloride (Nacl 0.9% 1000 Ml) 1,000 mls @ 42 mls/hr IV DIRECT BIBIANA Cefepime HCl (Cefepime/Ns 1 Gm/100 Ml) 1 gm in 100 mls @ 200 mls/hr IV Q8HR BIBIANA Vancomycin HCl (Vancomycin/Ns 1 Gm/250 Ml) 1 gm in 250 mls @ 166.667 mls/hr IV ONCE ONE Stop: 11/29/19 17:29 Sodium Chloride (Sodium Chloride Flush Syringe 10 Ml) 10 ml IV BID BIBIANA Sodium Chloride (Sodium Chloride Flush Syringe 10 Ml) 10 ml IV PRN PRN PRN Reason: LINE FLUSH Review of Systems ROS unobtainable: due to mental status Exam - Vital Signs Vital signs: Vital Signs Temp Pulse Resp BP Pulse Ox 97.4 F L 66 22 85/49 99 11/29/19 10:09 11/29/19 10:09 11/29/19 10:09 11/29/19 10:09 11/29/19 10:09 - General Appearance General appearance: well-developed, appears stated age, cachectic, other (no distress) EENT: ATNC, PERRL, hearing intact, vision intact Neck: Present: trachea midline Respiratory: Clear to Ascultation, Decreased Breath Sounds Heart: regular, S1S2, no murmurs Gastrointestinal: Present: normoactive bowel sounds, tenderness, distended, other (appears firm) Integumentary: no rash, warm and dry Neurologic: no focal deficit, confused, disoriented Musculoskeletal: Present: other (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 Acute kidney injury: Vasomotor JUNG superimposed in setting of septic shock. Urine studies and CT abdomen ordered. Monitor Renal function. Renal prognosis is guarded. Avoid nephrotoxic agents. Meds dosage based on GFR. 2. FEN: Metabolic acidosis, 2/2 lactic acidosis, monitor. Monitor lytes and volume status. 3. Septic shock: On Levophed and multiple abx. Monitor BP closely. 4. Acute on chronic hypoxic respiratory failure: Currently intubated and on vent. 5. Advanced stage liver disease. 6. Pancytopenia, POA.
[2019-11-29] MEDS ORDERED: VANCOMYCIN/NS 1 GM/250 ML 1 GM/250 ML BAG IV ONE (16:00)
[2019-11-29] MEDS ORDERED: VANCOMYCIN PHARMACY TO DOSE IV SCH (16:00)
[2019-11-29] MEDS ORDERED: CEFEPIME/NS 2 GM/100 ML 2 GM/100 ML BAG IV SCH (22:00)
[2019-11-29] MEDS ORDERED: CEFEPIME/NS 1 GM/100 ML 1 GM/100 ML BAG IV SCH (22:00)
--- NOTE | 2019-11-30 00:03 | Cat Scan Report ---
CT ABDOMEN AND PELVIS WITHOUT CONTRAST INDICATION: Pt has abdominal distention, Hx of renal failure. TECHNIQUE: Axial CT images were obtained through the abdomen and pelvis without IV contrast. All CT scans at [facility] location are performed using CT dose reduction for ALARA by means of automated exposure control. COMPARISON: None available. FINDINGS: LOWER CHEST: Moderate cardiomegaly and moderate bilateral pleural effusions with compressive atelecta sis of both lungs. Moderate confluent pulmonary emphysema also noted. LIVER: No significant abnormality. GALLBLADDER: Cholelithiasis. BILE DUCTS: No significant abnormality. PANCREAS: No significant abnormality. SPLEEN: No significant abnormality. ADRENALS: No significant abnormality. RIGHT KIDNEY and URETER: Atrophic kidneys characteristic for chronic renal disease LEFT KIDNEY and URETER: Atrophic kidneys characteristic for chronic kidney disease STOMACH and SMALL BOWEL: Moderate the dilated fluid-filled esophagus with estimated hiatal hernia. Mi ld to moderate distention of stomach which is also fluid-filled. COLON: No significant abnormality. APPENDIX: No significant abnormality. PERITONEUM: Large volume abdominal ascites. No free air. No fluid collection. LYMPH NODES: No significant adenopathy. AORTA and ARTERIES: Extensive vascular calcifications throughout nonaneurysmal aorta, mesenteric and iliac arteries IVC and VEINS: No significant abnormality. URINARY BLADDER: No significant abnormality. REPRODUCTIVE ORGANS: No significant abnormality. ADDITIONAL FINDINGS: None. SKELETAL SYSTEM: Previous fracture ORIF posterior column right acetabulum. Osteopenia with extensive nonbridging heterotopic ossification of left hip. Old L1 and L2 compression fractures containing methylmethacrylate bone cement. Moderate degenerative changes throughout lumbar spine IMPRESSION: 1. Moderate CHF with moderate bilateral pleural effusions. 2. Large volume abdominal ascites and diffuse body wall edema characteristic for generalized anasarca . 3. Moderate chronic atrophy both kidneys characteristic for chronic renal disease. 4. Cholelithiasis. 5. Moderate colonic diverticulosis. 6. Fuid-filled mild to moderate dilatation of distal thoracic esophagus and stomach may be secondary to gastroparesis. No bowel obstruction. Signer Name: Ruddy Hu MD Signed: 11/29/2019 11:58 PM Workstation Name: [id number]
[2019-11-30] MEDS ORDERED: CEFEPIME/NS 1 GM/100 ML 1 GM/100 ML BAG IV ONE (00:45)
[2019-11-30] MEDS ORDERED: NORepinephrine/NS 4 MG-250 ML 4 MG/250 ML BAG IV ONE (00:54)
[2019-11-30] MEDS ORDERED: EPINEPHrine 1 MG/1 ML 8 MG in SODIUM CHLORIDE 0.9% 250ML 242 ML IV SCH (01:00)
[2019-11-30] MEDS: NORepinephrine/NS 4 MG-250 ML 4 MG/250 ML BAG IV SCH (01:27)
[2019-11-30] MEDS ORDERED: NORepinephrine 8 MG in SODIUM CHLORIDE 0.9% 250ML 242 ML IV SCH (05:00)
[2019-11-30 05:18] LABS: Hematocrit 20.7 % (35.5-45.6); Hemoglobin 6.6 gm/dl (11.8-15.2); Mean Corpuscular HGB Conc 32 % (32-34); Red Blood Count 1.65 M/mm3 (3.65-5.03)
[2019-11-30 05:20] LABS: Mean Corpuscular Volume 125 fl (84-94); Platelet Count 37 K/mm3 (140-440); Red Cell Distribution Width 31.7 % (13.2-15.2)
[2019-11-30 05:35] LABS: Calcium 7.4 mg/dL (8.4-10.2)
--- NOTE | 2019-11-30 05:55 | Event Note ---
pt remained hypotensive on pressors. Developed bradycardia then cardiopulmonary arrest. Large amount of coffee ground emesis noted. One dose of epi provided with chest compression. Pt's rhythm deteriorated to asystole. Time of 5:33Am. Hosptitalist Dr Pedersen informed and will speak to family.
[2019-11-30 06:12] VITALS: BP 71/36
[2019-11-30 06:37] LABS: Total Cells Counted 100
[2019-11-30 06:38] LABS: Anisocytosis 3+; Basophils % (Manual) 0 % (0.0-1.8); Eosinophils % (Manual) 0 % (0.0-4.3); Macrocytosis 3+; Poikilocytosis 3+
[2019-11-30 06:39] LABS: Burr Cells 3+; Schistocytes Rare
[2019-11-30 06:40] LABS: Ovalocytes Few; Platelet Estimate Cons
--- NOTE | 2019-11-30 06:41 | Event Note ---
Date: 11/30/19 74-year-old male who has been on the ER hold on admission was pronounced by the ER physician today at 5:33 AM. Daughter ([phone]) -Bonny Coyle called at 5:50 AM to be informed of patient's .
[2019-11-30] MEDS ORDERED: AZITHROMYCIN 500 MG in SODIUM CHLORIDE 0.9% 250ML 250 ML IV SCH (10:00)
[2019-11-30] MEDS ORDERED: cefTRIAXone/NS 2 GM/100 ML 2 GM/100 ML BAG IV SCH (10:00)
--- NOTE | 2019-11-30 21:54 | Death Summary ---
Summary - Providers Consults: 11/29/19 14:56 Consult to Physician [CONS] Routine Comment: Consulting Provider: IRA NEWTON Physician Instructions: Reason For Exam: JUNG Attending: VALENTE SOSA - summary Date of admission: 11/29/19 14:46 Date of : 11/30/19 Disposition: 74 YO Male with HTN, HLD, CVA, Systolic CHF(EF 15%), COPD, Chronic Respiratory Failure on 2L Home Oxygen via, GERD, End Stage Liver Disease, Dementia, Debility presents to ED for evaluation. Pt is nonverbal and unable to provide history. Pt history taken from family who were called at the time of my evaluation to discuss the patient. As per family, the patient has experienced progressive weakness resulting in multiple falls, increased confusion over the past 2 weeks with worsening symptoms over the past 2 days. Pt is now bedbound and requires 6/6 assistance with activities of daily living, has auditory and visual hallucinations, decreased oral intake, and inability to recognize family members. EMS notified and upon arrival the patient was found to be in distress and transported to [facility] for further care and evaluation. Pt seen and evaluated in ED and found to have Acute Hypoxemic Respiratory Failure, Bilateral Pneumonia, Toxic Encephalopathy, JUNG, Sepsis. Pt found to have hypotensive with systolic blood pressure in the 50's. Pt initiated on Sepsis protocol as well as IV pressor support and IVF resuscitation therapy. Pt admitted to ICU. Critical Care Team consulted. Advanced care planning conducted in ED. patient found to have poor prognosis. Patient convalesced poorly during hospital course patient did not respond to IV pressor support and aggressive life-sustaining measures. Patient decompensated and subsequently experienced cardiac arrest. Patient treated" with ACLS protocol. Without return of perfusing cardiac rhythm. Patient pronounced at 055 3 hours. - Final diagnosis (1) Sepsis Qualifiers: Acute renal failure type: with acute tubular necrosis Note: Final diagnosis: (2) Acute respiratory failure with hypoxia Note: Final diagnosis: (3) Acute kidney injury (JUNG) with acute tubular necrosis (ATN) Note: Final diagnosis: (4) GERD (gastroesophageal reflux disease) Qualifiers: Esophagitis presence: without esophagitis Qualified Code(s): K21.9 - Gastro-esophageal reflux disease without esophagitis Note: Final diagnosis: (5) End stage liver disease Note: Final diagnosis: (6) HTN (hypertension) Qualifiers: Hypertension type: essential hypertension Qualified Code(s): I10 - Essential (primary) hypertension Note: Final diagnosis: (7) HLD (hyperlipidemia) Qualifiers: Hyperlipidemia type: mixed hyperlipidemia Qualified Code(s): E78.2 - Mixed hyperlipidemia Note: Final diagnosis: (8) DVT prophylaxis Note: Final diagnosis: (9) Advance care planning Note: Final diagnosis:
== END 2019-11-30 09:00 | DRG 871 ==
LOC: ED 09:51 → CC1 14:46
PROVIDERS: ADMIT Internal Medicine; ATTEND Internal Medicine
PROC: 5A09357 Assistance with Respiratory Ventilation, Less than 24 Consecutive Hours, Continuous Positive Airway Pressure (ICD-10-PCS; principal; 2019-11-29)
PROC: 4A033R1 Measurement of Arterial Saturation, Peripheral, Percutaneous Approach (ICD-10-PCS; 2019-11-29)
PROC: 5A09357 Assistance with Respiratory Ventilation, Less than 24 Consecutive Hours, Continuous Positive Airway Pressure (ICD-10-PCS; 2019-11-30)
DX: A41.9 Sepsis, unspecified organism (principal); J18.9 Pneumonia, unspecified organism; N17.0 Acute kidney failure with tubular necrosis; G92 Toxic encephalopathy; R65.21 Severe sepsis with septic shock; J96.21 Acute and chronic respiratory failure with hypoxia; I13.0 Hypertensive heart and chronic kidney disease with heart failure and stage 1 through stage 4 chronic kidney disease, or unspecified chronic kidney disease; J90 Pleural effusion, not elsewhere classified; D61.818 Other pancytopenia; N18.9 Chronic kidney disease, unspecified; I50.9 Heart failure, unspecified; J44.9 Chronic obstructive pulmonary disease, unspecified; F03.90 Unspecified dementia, unspecified severity, without behavioral disturbance, psychotic disturbance, mood disturbance, and anxiety; I95.9 Hypotension, unspecified; K72.90 Hepatic failure, unspecified without coma; K21.9 Gastro-esophageal reflux disease without esophagitis; Z83.3 Family history of diabetes mellitus; Z82.49 Family history of ischemic heart disease and other diseases of the circulatory system; Z87.891 Personal history of nicotine dependence; Z99.81 Dependence on supplemental oxygen; E78.2 Mixed hyperlipidemia; Z86.73 Personal history of transient ischemic attack (TIA), and cerebral infarction without residual deficits
CPT/HCPCS: 36415; 70450; 71045; 74176; 80048; 80053; 80061; 81001; 82140; 82803; 82962; 83880; 84484; 85007; 85025; 85610; 85730; 86850; 86900; 86901; 87040; 93005; 94660; G0378; J0171; J0692; J3370; J7030; J7040; J7050